=== PATIENT | female | born 2005 | race Caucasian/White ===

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

== ENCOUNTER 2023-02-22 19:16 | Emergency (ER) | payer OTHER, SELFPAY ==
--- NOTE | 2023-02-22 19:20 | ED.ABDPAIN ---
HPI - Abdominal Pain General Chief Complaint: Abdominal Pain Stated Complaint: Abdominal Pain Time Seen by Provider: 02/22/23 19:20 Source: patient Mode of arrival: ambulatory Limitations: no limitations History of Present Illness HPI narrative: Patient is 17-year-old female that presents with diarrhea for 1 week. Patient has not tried any Imodium or other [id number] medication to help with diarrhea. Patient has been taking 1 600 mg ibuprofen intermittently. Patient was talking to PCP on patient portal but unable to get into office. Patient states her diet consists of fast food. Does states she only drinks water and is not concerned for dehydration. Denies any fever, chills, nausea, vomiting. Denies anyone else having diarrhea in her household. Related Data Home Medications Medication Instructions Recorded Confirmed etonogestrel 68 mg subdermal 1 implant subdermal ONCE 11/08/22 02/22/23 implant (Nexplanon) Allergies Allergy/AdvReac Type Severity Reaction Status Date / Time No Known Allergies Allergy Verified 02/22/23 19:54 Review of Systems Review of Systems: All systems reviewed & are unremarkable except as noted in HPI and below Constitutional: Constitutional: Denies body ache(s), Denies chills, Denies fatigue, Denies fever(s), Denies headache(s), Denies malaise and Denies weakness Eyes: Eyes: Denies blurry vision, Denies irritation and Denies loss of vision ENT: Denies otalgia, Denies headache(s), Denies nasal discharge, Denies sinus pain and Denies sore throat Cardiovascular: Cardiovascular: Denies chest pain, Denies irregular heart rhythm and Denies dyspnea Respiratory: Respiratory: Denies dyspnea Gastrointestinal: Gastrointestinal: Reports abdominal pain, Denies melena, Denies hematochezia, Reports diarrhea, Denies nausea and Denies vomiting Musculoskeletal: Musculoskeletal: Denies back pain, Denies myalgias and Denies arthralgias Integumentary/Breasts: Skin/Breast: Denies pruritus and Denies rash Neurologic: Denies headache(s), Denies loss of vision and Denies weakness Psychiatric: Psychiatric: Reports no additional psychiatric complaints Endocrine: Endocrine: Denies fatigue PMFSH Past Medical History Medical History Anxiety and depression UTI (urinary tract infection) Family History Family History Other Hypertension Social History Social History Smoking status: Never smoker Alcohol intake: never Substance use: never Substance use type: does not use Living arrangements: with family Occupation/Education: student Gender identity (if verbalized by the patient): Female Spiritual care concerns: No Comments At time of signature, agree with nursing past medical, surgical, social and family history. There is no relevant family history pertinent to the presenting complaint. Exam Const: General: cooperative, healthy appearing, comfortable, no acute distress and well nourished Nutritional Appearance: well nourished Orientation/consciousness: patient oriented x3 Limitations: no limitations HENMT: Head: normal to inspection, normocephalic and atraumatic Ears: hearing grossly normal bilaterally and external ears normal Face/Nose/Sinus: Normal external nose present, normal facial exam and face symmetric Face and sinus: normal facial exam and face symmetric Mouth: Yes lip normal Eyes: General: appearance normal, both eyes and all related structures Alignment and Position: alignment normal and position normal Periorbital: periorbital findings normal Eyelids: eyelids normal Pupils: Equal, round and reactive pupils present EOM: EOMs intact bilaterally Neck: Neck: normal visual inspection, full ROM and supple Chest: Chest palpation & inspection: normal inspection of the chest Resp: Effort & Inspectio
[2023-02-22 19:35] VITALS: BP 131/102; PULSE 100; RESP 16; TEMP 37.1; O2SAT 100
== END 2023-02-22 20:10 | disposition home or self-care (01) ==
PROVIDERS: Emergency Provider Nurse Practitioner Family; PCP Physician Assistant
DX: K52.9 Noninfective gastroenteritis and colitis, unspecified (principal)
CPT/HCPCS: 99213; G0463

== ENCOUNTER 2023-05-12 11:39 | Emergency (ER) | payer OTHER, SELFPAY ==
[2023-05-12 11:51] VITALS: BP 120/101; PULSE 134; RESP 16; TEMP 38.3; O2SAT 99
--- NOTE | 2023-05-12 12:06 | ED.URI ---
HPI - URI/Sore Throat General Chief Complaint: Upper Respiratory Infection Stated Complaint: body aches,chills,fever Time Seen by Provider: 05/12/23 12:06 Source: patient and RN notes reviewed Mode of arrival: ambulatory Limitations: no limitations History of Present Illness HPI Narrative: 18-year-old female presented for complaint of fatigue, headache, body aches, sinus pressure/congestion, mild cough, nausea, fever/chills. onset 2 days. Taking ibuprofen for symptoms. Endorses mother was sick with similar symptoms recently. Denies sob, wheezing , chest pain or lethargy. MD elicited complaint: cough Related Data Home Medications Medication Instructions Recorded Confirmed etonogestrel 68 mg subdermal 1 implant subdermal ONCE 11/08/22 02/22/23 implant (Nexplanon) liraglutide 0.6 mg/0.1 mL (18 mg/3 mg subcut 05/12/23 mL) subcutaneous pen injector (Talicious 2-Logan) Allergies Allergy/AdvReac Type Severity Reaction Status Date / Time No Known Allergies Allergy Verified 05/12/23 11:50 Review of Systems Review of Systems: CONSTITUTIONAL: Endorses malaise, chills, sweats, fever EYES: Denies visual changes, redness, or discharge ENT: Reports rhinorrhea, congestion, sinus pain, otalgia, sore throat CARDIOVASCULAR: Denies chest pain, palpitations, edema RESPIRATORY: Reports cough, post nasal drainage. Denies dyspnea GASTROINTESTINAL: Denies abdominal pain, vomiting, diarrhea SKIN: Denies rash or itching MUSCULOSKELETAL: Endorses myalgia NEUROLOGIC: Endorses headache PMFSH Past Medical History Medical History Anxiety and depression UTI (urinary tract infection) Family History Family History Other Hypertension Social History Social History Smoking status: Never smoker Alcohol intake: never Substance use: never Substance use type: does not use Living arrangements: with family Occupation/Education: student Gender identity (if verbalized by the patient): Female Spiritual care concerns: No Exam Narrative: GENERAL: Ill-appearing, nontoxic HEAD: Normocephalic EYES: PERRLA, conjunctivae clear ENT: Mucous membranes moist. TMs pearly plasencia with dull light reflex bilaterally; no tragal tenderness. Oropharynx mildly erythematous without lesions or exudate, no drooling, no hoarseness, no trismus, uvula midline. NECK: Supple. No lymphadenopathy CHEST: Clear to auscultation, breath sounds equal. No wheezing, rhonchi, rales, or stridor. No respiratory distress, speaks in full sentences. HEART: Regular rate and rhythm. No murmur heard. SKIN: Warm, dry, no rash. NEURO: Alert and oriented x3. PSYCH: Normal mood and affect Course Course Emergency Course: Patient is aware of diagnosis, understands and agrees to treatment plan. Anticipatory guidance given. Patient agrees to follow-up as directed and is aware of reasons to seek care at the emergency department. Portions of this record may have been created with voice recognition software Level of Care: Express Care Visit Vital Signs Vital signs: Vital Signs Temperature 100.9 F H 05/12/23 11:51 Pulse Rate 134 H 05/12/23 11:51 Respiratory Rate 16 05/12/23 11:51 Blood Pressure 120/101 H 05/12/23 11:51 Pulse Oximetry 99 05/12/23 11:51 Oxygen Delivery Room Air 05/12/23 11:51 Temperature 100.9 F H 05/12/23 11:51 Pulse Rate 134 H 05/12/23 11:51 Respiratory Rate 16 05/12/23 11:51 Blood Pressure 120/101 H 05/12/23 11:51 Pulse Oximetry 99 05/12/23 11:51 Oxygen Delivery Room Air 05/12/23 11:51 reviewed MDM - URI/Sore Throat MDM Narrative Medical decision making narrative: Discussed physical exam findings and results of tests. Advised supportive measures and signs/symptoms to go to the ER. Pt is appropriate for outpt treatm
== END 2023-05-12 12:37 | disposition home or self-care (01) ==
PROVIDERS: Emergency Provider Nurse Practitioner Family; PCP Physician Assistant
DX: B34.9 Viral infection, unspecified (principal); Z20.822 Contact with and (suspected) exposure to COVID-19
CPT/HCPCS: 87081; 87426; 87804; 87880; 99213; C9803; G0463

== ENCOUNTER 2023-05-14 12:17 | Emergency (ER) | payer OTHER, SELFPAY ==
[2023-05-14 12:25] VITALS: BP 138/84; PULSE 133; RESP 16; TEMP 38.4; O2SAT 99
--- NOTE | 2023-05-14 13:31 | ED.GENADULT ---
HPI - General Adult General Chief complaint: Upper Respiratory Infection Stated complaint: Sinus Source: patient Mode of arrival: ambulatory Limitations: no limitations History of Present Illness HPI narrative: Patient presents for evaluation of sick symptoms for the last 4 days. Symptoms include fever, chills, sinus congestion, sinus drainage, sore throat, cough, nausea and vomiting. Her male partner has similar symptoms and several of his were contacts recently tested positive for COVID. Patient has never had COVID in the past. She was seen here 2 days ago and had negative testing at that time. She is not taking any medications to assist with her symptoms. Related Data Home Medications Medication Instructions Recorded Confirmed etonogestrel 68 mg subdermal 1 implant subdermal ONCE 11/08/22 02/22/23 implant (Nexplanon) liraglutide 0.6 mg/0.1 mL (18 mg/3 mg subcut 05/12/23 mL) subcutaneous pen injector (Victoza 2-Logan) Allergies Allergy/AdvReac Type Severity Reaction Status Date / Time No Known Allergies Allergy Verified 05/12/23 11:50 Review of Systems Review of Systems: CONSTITUTIONAL: reports fever and chills EYES: Denies visual changes, redness, or discharge. ENT: reports sinus congestion, nasal drainage, sore throat CARDIOVASCULAR: Denies chest pain, palpitations, or edema. RESPIRATORY: reports cough. Denies shortness of breath GASTROINTESTINAL: Reports nausea and vomiting. Denies abdominal pain or diarrhea. GENITOURINARY: Denies dysuria or hematuria. SKIN: Denies rash or itching. MUSCULOSKELETAL: Reports generalized body aches NEUROLOGIC: Denies headache, numbness, dizziness, or weakness. PSYCHIATRIC: Denies anxiety or depression. [facility] Past Medical History Medical History (Updated 05/14/23 @ 13:33 by EVELYN Ramirez, JERONIMO) Anxiety and depression UTI (urinary tract infection) Surgical History Surgical History No pertinent past surgical history Family History Family History Mother Family history non-contributory Other Hypertension Social History Social History Smoking status: Never smoker Alcohol intake: never Substance use: never Substance use type: does not use Living arrangements: with family Occupation/Education: student Gender identity (if verbalized by the patient): Female Spiritual care concerns: No Exam Narrative: GENERAL: Well-appearing, well-nourished, and in no acute distress. HEAD: Normocephalic, atraumatic. EYES: PERRLA and EOMI. ENT: Nares clear, no rhinorrhea or epistaxis. Mucous membranes moist. Oropharynx without tonsillar hypertrophy exudate or other lesions. Bilateral TMs pearly plasencia nonbulging NECK: Supple. No adenopathy or masses. No carotid bruits or JVD CHEST: Clear to auscultation. No respiratory distress. No wheezes rales or rhonchi HEART: Regular rate and rhythm. No murmur heard. Normal peripheral pulses. ABDOMEN: Soft, nontender, nondistended, normal active bowel sounds. EXTREMITIES: Normal range of motion. No edema. SKIN: Warm, dry, no rash. NEURO: No focal deficits. Alert and oriented x3. PSYCH: Normal mood and affect. Course Course Emergency Course: This is a 18-year-old female who presented for evaluation of sick symptoms. She was febrile and tachycardic but heart rate normalized to 76. Increase hydration. [id number] agents for symptom management. Follow up with primary provider. Go to the emergency department for worsening symptoms. Patient in agreement plan care. Level of Care: Express Care Visit Vital Signs Vital signs: Vital Signs Temperature 38.4 C H 05/14/23 12:25 Pulse Rate 133 H 05/14/23 12:25 Respiratory Rate 16 05/14/23 12:25 Blood Pressure 138/84 05/14/23 12:25 Pulse Oximetry
== END 2023-05-14 13:37 | disposition home or self-care (01) ==
PROVIDERS: Emergency Provider Nurse Practitioner; PCP Physician Assistant
DX: U07.1 COVID-19 (principal)
CPT/HCPCS: 87426; 99213; C9803; G0463

== ENCOUNTER 2023-12-07 10:31 | Emergency (ER) | payer SELFPAY ==
[2023-12-07 10:55] VITALS: BP 110/75; PULSE 105; RESP 16; TEMP 37.3; O2SAT 99
--- NOTE | 2023-12-07 11:20 | ED.FEMALEGU ---
HPI - Female Genitourinary General Chief complaint: Urogenital-Female Stated complaint: urinary issue Source: patient and RN notes reviewed Mode of arrival: ambulatory Limitations: no limitations History of Present Illness HPI Narrative: 18-year-old female presented for complaint of burning with urination. She states today she woke in the night with burning sensation to urethra. Then developed urgency, frequency, and decreased amount when voiding. Also reports cloudy dark urine. Pt took warm bath, heating pad, muscle relaxer with enough relief to go back to sleep. Rates pain 02/23. No meds for symptoms. Hx UTIs. Denies hematuria, nausea, vomiting, abdominal pain, flank pain, constipation, diarrhea, fevers or chills. Denies concern for STD or , on Nexplanon. Related Data Home Medications Medication Instructions Recorded Confirmed etonogestrel 68 mg subdermal 1 implant subdermal ONCE 11/08/22 12/07/23 implant (Nexplanon) Allergies Allergy/AdvReac Type Severity Reaction Status Date / Time No Known Allergies Allergy Verified 12/07/23 10:33 Review of Systems Review of Systems: CONSTITUTIONAL: Denies body aches, fever, chills, or sweats. CARDIOVASCULAR: Denies chest pain, palpitations, or edema. RESPIRATORY: Denies cough or dyspnea. GASTROINTESTINAL: Denies abdominal pain, nausea, vomiting, or diarrhea. GENITOURINARY: Reports dysuria, frequency, urgency, denies hematuria, flank pain SKIN: Denies rash, itching, or wounds. MUSCULOSKELETAL: Denies back pain or myalgia. [facility] Past Medical History Medical History Anxiety and depression UTI (urinary tract infection) Surgical History Surgical History No pertinent past surgical history Family History Family History Mother Family history non-contributory Other Hypertension Social History Social History Smoking status: Never smoker Alcohol intake: never Substance use: never Substance use type: does not use Living arrangements: with family Occupation/Education: student Gender identity (if verbalized by the patient): Female Spiritual care concerns: No Comments At time of signature, I have reviewed and agree with nursing past medical, surgical, social and family history unless otherwise noted. Please see nursing chart for further information. There is no relevant family history pertinent to the presenting complaint Exam Narrative: GENERAL: Well-appearing and in no acute distress. ENT: Mucous membranes pink and moist. NECK: Normal AROM. Supple. CHEST: No respiratory distress. Clear to auscultation. HEART: Regular rate and rhythm. ABDOMEN: Soft, nontender, nondistended, normal active bowel sounds. No CVA tenderness MUSCULOSKELETAL: No bony tenderness. SKIN: Warm, dry, no rash. NEURO: No focal deficits. Alert and oriented x3. Gait steady. PSYCH: Normal affect. Course Course Emergency Course: Patient is aware of diagnosis, understands and agrees to treatment plan. Anticipatory guidance given. Patient agrees to follow-up as directed and is aware of reasons to seek care at the emergency department. Portions of this record may have been created with voice recognition software Level of Care: Express Care Visit Vital Signs Vital signs: Vital Signs Temperature 99.2 F 12/07/23 10:55 Pulse Rate 105 H 12/07/23 10:55 Respiratory Rate 16 12/07/23 10:55 Blood Pressure 110/75 12/07/23 10:55 Pulse Oximetry 99 12/07/23 10:55 Oxygen Delivery Room Air 12/07/23 10:55 Temperature 99.2 F 12/07/23 10:55 Pulse Rate 105 H 12/07/23 10:55 Respiratory Rate 16 12/07/23 10:55 Blood Pressure 110/75 12/07/23 10:55 Pulse Oximetry 99 12/07/23 10:55 Oxygen Delivery Room Air
== END 2023-12-07 11:30 | disposition home or self-care (01) ==
PROVIDERS: Emergency Provider Nurse Practitioner Family; PCP Physician Assistant
DX: N39.0 Urinary tract infection, site not specified (principal); B96.20 Unspecified Escherichia coli [E. coli] as the cause of diseases classified elsewhere
CPT/HCPCS: 81003; 87077; 87086; 87088; 87186; 99213; G0463

== ENCOUNTER 2024-05-22 12:49 | Emergency (ER) | payer SELFPAY ==
--- NOTE | 2024-05-22 13:01 | ED.FEMALEGU ---
HPI - Female Genitourinary General Chief complaint: Urogenital-Female Stated complaint: urinary issue Time Seen by Provider: 05/22/24 13:25 Source: patient Mode of arrival: ambulatory Limitations: no limitations History of Present Illness HPI Narrative: Sherri is a 19-year-old female patient presenting to the clinic today with complaints of burning with urination it has been going off and on for the past week. Reports she saw her doctor on Saturday and they did a urinalysis and it was normal at that time. She does report the clinic today that she does have some brownish white discharge that she has noticed. Is having some excoriation as well as burning with urination and towards the end of her stream. Denies any fever or chills. Does report some low back pain. Related Data Home Medications Medication Instructions Recorded Confirmed etonogestrel 68 mg subdermal 1 implant subdermal ONCE 11/08/22 12/07/23 implant (Nexplanon) amitriptyline 25 mg tablet 25 mg PO HS 05/22/24 05/22/24 Allergies Allergy/AdvReac Type Severity Reaction Status Date / Time No Known Allergies Allergy Verified 05/22/24 13:32 Review of Systems Review of Systems: Pertinent positives per HPI. Patient denies any fever, chills, rash, headache, visual changes, dizziness, cough, runny nose, sore throat, shortness of breath, chest pain, palpitations, nausea, vomiting, diarrhea, constipation, abdominal pain PMFSH Past Medical History Medical History Anxiety and depression UTI (urinary tract infection) Surgical History Surgical History No pertinent past surgical history Family History Family History Mother Family history non-contributory Other Hypertension Social History Social History Smoking status: Never smoker Alcohol intake: never Substance use: never Substance use type: does not use Living arrangements: with family Occupation/Education: student Gender identity (if verbalized by the patient): Female Spiritual care concerns: No Comments At the time of my signature, I reviewed and agree with the nursing past medical, surgical, social, and family history. There is no relevant family history pertinent to the patient complaint. Exam Narrative: General: Well-developed, well nourished, in no apparent distress Head: Normocephalic, atraumatic. Cardio: Regular rate and rhythm, s1 and s2 normal, no murmur appreciated. Resp: Clear to auscultation bilaterally, no rhonchi, rales, wheezing or rubs. Abdomen: Soft, pliable, bowel sounds present in all quadrants, non-tender to palpation, no CVAT tenderness. : Pelvic exam performed with (Anahi CARRILLO) at bedside. Verbal consent obtained from patient. Normal external female genitalia without lesions or masses, Urinary meatus: patent without discharge, Vagina: No lesions, masses, brown whitish discharge in the pelvic vault Cervix: pink without mass, lesions, discharge, or tenderness. Adnexa: without palpable mass or tenderness. Course Course Emergency Course: Portions of this record may have been created with voice recognition software. Level of Care: Express Care Visit Vital Signs Vital signs: Vital signs reviewed MDM - Female Genitourinary MDM Narrative Medical decision making narrative: At the time of visit patient is resting comfortably on the exam table. Patient appears to be nontoxic. Labs: Urinalysis shows positive ketone otherwise negative for any infection or blood. Chlamydia, gonorrhea, trich, and BV swab for sent to the lab. Plan: I suspect patient has dysuria with vaginal discharge. Will hold off on any prescriptions at this time is send over chlamydia, gonorrhea, trich, BV testing. We will contact patient if
[2024-05-22 13:21] VITALS: BP 117/62; PULSE 80; RESP 16; TEMP 37.3; O2SAT 99
[2024-05-22 13:26] LABS: EDUAAPPEAR Clear; EDUABILI Negative; EDUABLOOD Negative; EDUACOLOR1 Yellow; EDUAGLUCOSE Negative; EDUAKETONE 1+; EDUALEUKO Negative; EDUANITRATE Negative; EDUAPH 5.5; EDUAPROTEIN Negative
[2024-05-22 19:45] LABS: Trichomonas Vag PCR NOT DETECTED (NOT DETECTE)
[2024-05-22 20:09] LABS: Chlamydia trachomatis NOT DETECTED (NOT DETECTE); Neisseria gonorrhoeae PCR NOT DETECTED (NOT DETECTE)
[2024-05-27 14:54] LABS: Bacterial Vaginosis NEGATIVE (NEGATIVE)
== END 2024-05-22 13:58 | disposition home or self-care (01) ==
PROVIDERS: Emergency Provider Nurse Practitioner Family
DX: R30.0 Dysuria (principal); N89.8 Other specified noninflammatory disorders of vagina; F32.A Depression, unspecified
CPT/HCPCS: 81003; 81513; 87491; 87591; 87661; 99214; G0463

== ENCOUNTER 2024-08-18 10:50 | Outpatient (CLI) | payer OTHER, SELFPAY ==
[2024-08-18 11:12] LABS: Basophils Absolute Auto 0.03 K/mm3 (0.00-0.10); Basophils Percent Auto 0.3 % (0.0-1.0); Eosinophils Absolute Auto 0.29 K/mm3 (0.02-0.50); Eosinophils Percent Auto 3.2 % (1.0-6.0); Hemoglobin 12.2 g/dL (12.0-15.0); Immature Granulocyte Absolute 0.03 K/mm3 (0.00-0.00); Immature Granulocyte Percent A 0.3 % (0.0-0.0); Lymphocytes Absolute Auto 2.85 K/mm3 (1.10-4.50); Lymphocytes Percent Auto 31.3 % (18.0-42.0); Mean Corpuscular Hemoglobin 26.3 pg (27.0-31.0); Mean Corpuscular Volume 79.9 fL (78.0-102.0); Mean Platelet Volume 10.1 fl (9.2-11.8); Monocytes Percent Auto 6.6 % (2.0-11.0); Neutrophils Percent Auto 58.3 % (50.0-70.0); Platelet Count Result 363 K/mm3 (150-420); Red Blood Count 4.63 M/mm3 (4.20-5.40); Red Cell Distribution Width 13.1 % (11.6-14.4); White Blood Count 9.1 K/mm3 (4.8-10.8)
[2024-08-18 11:19] LABS: Hemoglobin A1C 5.1 % (<5.7)
[2024-08-18 11:52] LABS: Alanine Aminotransferase 43 U/L (14-59); Albumin Level 3.7 g/dL (3.4-5.0); Alkaline Phosphatase 88 U/L (46-116); Anion Gap 8 mmol/L (4-12); Aspartate Amino Transferase 21 U/L (15-37); Bilirubin,Total 0.5 mg/dL (0.00-1.00); Blood Urea Nitrogen 9 mg/dL (7-18); Calcium 9.2 mg/dL (8.5-10.1); Carbon Dioxide 25 mmol/L (21-32); Chloride 104 mmol/L (98-108); Cholesterol 153 mg/dL (0-200); Estimated Glomerular Filt Rate > 60; Glucose 86 mg/dL (70-99); HDL Direct 45 mg/dL (40-60); Iron 33 ug/dL (50-170); LDL Cholesterol Calculated 91 mg/dL (<130); Osmolality Calculated 281 mOsm/kg (285-295); Percent Iron Saturation 9 % (12-57); Potassium 4.1 mmol/L (3.5-5.1); Sodium 137 mmol/L (136-145); Triglycerides 85 mg/dL (0-150)
[2024-08-18 13:18] LABS: Erythrocyte Sedimentation Rate 26 mm/hr (0-15)
[2024-08-19 08:04] LABS: Hepatitis C Virus Antibody NON-REACTIVE (NON-REACTIVE)
[2024-08-20 03:53] LABS: C-Peptide 3.26 ng/mL (0.80-3.85)
== END 2024-08-18 10:51 | disposition home or self-care (01) ==
PROVIDERS: PCP Internal Medicine; Visit Provider Internal Medicine
DX: Z00.00 Encounter for general adult medical examination without abnormal findings (principal); R51.9 Headache, unspecified; L81.8 Other specified disorders of pigmentation; D50.9 Iron deficiency anemia, unspecified; F41.8 Other specified anxiety disorders; Z83.3 Family history of diabetes mellitus
CPT/HCPCS: 36415; 80053; 80061; 83036; 83540; 83550; 84443; 84681; 85025; 85652; 86803

== ENCOUNTER 2024-09-18 16:10 | Outpatient (CLI) | payer OTHER, SELFPAY ==
[2024-09-18 16:57] LABS: SARS-CoV-2 RNA PCR Positive (Negative)
[2024-09-18 16:58] LABS: Influenza A QL RT-PCR Negative (Negative); Influenza B QL RT-PCR Negative (Negative); RSV RNA, RT-PCR Negative (Negative)
== END 2024-09-18 16:11 | disposition home or self-care (01) ==
LOC: CHSLAB 16:14
PROVIDERS: PCP Internal Medicine; Visit Provider Internal Medicine
DX: J06.9 Acute upper respiratory infection, unspecified (principal)
CPT/HCPCS: 87637

== ENCOUNTER 2024-10-21 20:30 | Emergency (ER) | payer OTHER, SELFPAY ==
[2024-10-21 20:35] VITALS: BP 134/83; PULSE 122; RESP 20; TEMP 37.3; O2SAT 97
--- OUTSIDE RECORDS SUMMARY | 2024-10-21 20:36 | XMS_ITS | Referral Summary ---
Author Organization [facility] Address [address] [place] [address] Care Team Providers Care Exhibit Builder Name Role Phone Roel Aragon MD Primary Care Provider Unavail able Source Comments [facility],non-owned Affiliates and Associated Physician Practices is amultiple site organization consisting of ambulatory clinics and hospital sitesin [place], [place], [place] and [place]. This disclosure is being madepursuant to the Care Everywhere program and may not contain all information available regarding this patient. Last updated 18.[facility] Allergies No known active allergies Medications * Be aware that medications may not be up to date on this document. Alwaysverify current medications with the patient. Medication Sig Dispensed Refills Start Date End Date Status ondansetron, disintegrating, (ZOFRAN ODT) 4 MG tablet Take 2 (two) tablets by mouth every 6 hours as needed for Nausea/Vomiting Allow tablet to dissolve on the tongue Active omeprazole (PRILOSEC) 20 MG capsule Take 1 (one) capsule by mouth daily before breakfast Active promethazine (PHENERGAN) 25 MG tablet Take 1 tablet by mouth every 6 hours as needed for Nausea/Vomiting 20 tablet 04/03/2018 Active acetaminophen (Tylenol) 500 MG capsule Take 600 mg by mouth as needed Active benzoyl peroxide (Benzac) 5 % wash APPLY A THIN LATER TO THE AFFECTED AREA EVERY DAY Active clindamycin (Cleocin) 1 % gel APPLY THIN LAYER TOPICALLY TO THE AFFECTED AREA EVERY DAY 11/30/2021 Active etonogestrel (Nexplanon) 68 MG implant Nexplanon 68 mg subdermal implant Inject 1 implant by subcutaneous route. Active ibuprofen (Motrin) 600 MG tablet Take 1 (one) tablet by mouth every 8 hours as needed Active meloxicam (Mobic) 7.5 MG tablet Take 1 (one) tablet by mouth once daily 30 tablet 5 11/28/2022 Active tiZANidine (Zanaflex) 2 MG tablet Take 1 (one) tablet by mouth every 8 hours as needed for Muscle Spasms 20 tablet 2 11/28/2022 Active Social History Tobacco Use Types Packs/Day Years Used Date Smoking Tobacco: Never Smokeless Tobacco: Never Tobacco Cessation:Counseling Given: Not Answered Alcohol Use Standard Drinks/Week Comments No 0 (1 standard drink = 0.6 oz pur e alcohol) Sex and Gender Information Value Date Recorded Sex Assigned at Not on file Gender Identity Not on file Sexual Orientation Not on file Last Filed Vital Signs Vital Sign Reading Time Taken Comments Blood Pressure 120/76 11/28/2022 1:56 PM CDT Pulse 80 04/03/2018 12:55 AM CDT Temperature 36.9 C (98.5 F) 04/03/2018 12:55 AM CDT Respiratory Rate 20 04/03/2018 12:55 AM CDT Oxygen Saturation - - Inhaled Oxygen Concentration - - Weight 99.3 kg (219 lb) 11/28/2022 1:56 PM CDT Height 172.7 cm (5' 8 ) 11/28/2022 1:56 PM CDT Body Mass Index 33.3 11/28/2022 1:56 PM CDT Plan of Treatment Not on file Care Teams Exhibit Builder Relationship Specialty Start Date End Date Roel Aragon MD PCP - General 03/22/22
--- OUTSIDE RECORDS SUMMARY | 2024-10-21 20:36 | XMS_ITS | Data Portability ---
Author Organization [facility] [place] Address [address] [place] [address] [place] [address] Care Team Providers Care Talent Recruiter Name Role Phone JAKOB MCGEE Primary Care Provider Assessment Encounter Date Assessment Date Assessment LastModified by Organization Details LastModified Time 08/20/2024 08/20/2024 Annual gynecological exam performed. Patient will come back in a year unless there are new symptoms. [email or web address] Not available 08/20/2024 17:01:25 Plan of Treatment Reminders Order Date Submit Date Provider Last Modified By Organization Details Last Modified Time Details Appointments None recorded. Lab test, urine 2022 023 [facility], [address], [address], [place], [address], 3 17:20:28 Referral None recorded. Procedures None recorded. Surgeries None recorded. Imaging US, transvagina l 2021 022 [email or web address] [place], [address], [place], [address], 2 22:21:34 Medication Orders Nexplanon 68 mg subdermal implant 2022 023 Not available 3 17:20:10 estradiol 2 mg tablet 2023 024 [facility] [address] [place], [address], 4 14:38:34 Patient TargetsNo targets recorded. Patient InstructionsNo instructions recorded. Reason for Referral None Reported. Results Created Date Observation Date Name Description Value Unit Range Abnormal Flag Note LastModifiedBy Organization Detail LastModifiedTime 08/20/20 24 08/20/2024 IMAGE GUIDE D PAP, REFLE X HPV IF ASCUS ONLY image guided Pap, reflex HPV ASCUS only SEE RESULT S BELOW CASE REPOR T: Cytol ogy Gynec ologi kelli Repor t Case: [id number] Autho lloyd devin Provi kenrick: Bryce Minor MD Colle cted: 08/20 1642 Order ing Locat ion: [place] Patho log[facility] Recei tamie: 08/21 1159 First Buzz n: Cindy nAguiano, CT Speci men: Buzz lagunas Pap - Image d, Cervi x STATE MENT OF ADEQU ACY: Satis facto ry for evalu ation Trans forma tion zone compo neterra prese nt ----- ----- ----- ----- ----- ----- ----- ----- ----- ----- ----- ----- ----- ----- ----- ----- ----- ---- FINAL DIAGN OSIS: Negat jacek for Intra epith elial Lesio n or Janie moore ([facility]) . Elect anya pittman by DORCAS Navarrete on 08/30 at 1352 [employer] ----- ----- ----- ----- ----- ----- ----- ----- ----- ----- ----- ----- ----- ----- ----- ----- ----- ---- COMME NT: This speci men was revie wed by a Cytot echno logis t and/o r Patho logis t (as indic ated in this repor t) after evalu ation using the Thinp rep Imagi ng Syste m. CLINI KELLI INFOR MATIO N: Menst rual Statu s: LMP (if appli cable ): Clini kelli Histo ry/Pr eviou s Pap: Type of Neopl alysha (if appli cable ): Signi fican t Clini kelli Findi ngs: Other Histo ry: Hormo christos (if appli cable ): PAP EDUCA FEDERICA L NOTE: The Pap Test is a scree bebo test with an inher ent false negat jacek rate. Liqui d-bas ed sampl ing may decre ase, but will not elimi linn, false negat jacek resul ts. A negat jacek resul t does not precl ude the prese nce and/o r devel opmen t of disea se, since the prese nce of abnor mal cells in the sampl e depen ds on the locat ion of the lesio n and sampl ing techn ique. Dorina nued regul ar scree bebo is the best metho d of cance r preve ntion . If repor diana cytol ogic findi ng do not corre late with physi kelli and/o r histo rical findi ngs, furth er inves tigat ion is recom paola d, as clini almita jacobs nted. Not Available [facility] (Lab) [address], [place], [address], 08/30/2024 14:55:59 08/20/20 24 08/20/2024 TRICH OMONA S VAGIN DIANA (RRNA ) trichomonas vaginalis ribosomal RNA (rrna) Negati ve negati ve Not Available [facility] (Lab) [address] [place], [address], 08/30/2024 14:55:59 08/20/20 24 08/20/2024 CT/GC ([facility]) , THINP REP VIAL chlamydia trachomatis, PCR Negati ve negati ve Not Available [facility] (Lab) [address] [place], [address], 08/30/2024 14:56:00 08/20/20 24 08/20/2024 CT/GC ([facility]) , THINP REP VIAL neisseria gonorrhoeae, PCR Negati ve negati ve Not Available [facility] (Lab) [address], [place], [address], 08/30/2024 14:56:00 07/31/20 22 07/31/2022 US, trans vagin al No observ ation record ed. [email or web address] [place] [address], [place], [address], 07/31/2022 17:20:15 07/31/20 22 07/31/2022 US, trans vagin al No observ ation record ed. [email or web address] [address], [place], [address], 07/31/2022 23:08:30 Result Notes None recorded. Procedures Surgical History Date Name Laterality Status Provider Name and Address Organization Details Recorded Time 08/20/20 24 Date of Last Pap Smear completed Sera Wilson [facility] 08/20/2024 17:04:18 10/26/19 23 Control Implant Insertion completed Junaid Minor MD [address], [place], [address], [facility] 10/26/2022 23:28:32 03/21/20 22 LAPAROSCOPIC OVARIAN CYSTECTOMY (SURG) completed Alison Diaz [facility] 03/26/2022 12:02:00 Imaging Results Imaging Date Name Status LastModified by Organization Details LastModified Time 07/31/2022 [email or web address] [address], [place], [address], 07/31/2022 17:20:15 07/31/2022 US, transvaginal completed [email or web address], [place], [address], 07/31/2022 23:08:30 Procedure Notes None recorded. Medical Equipment None Reported. Allergies No known drug allergies Medications Name Sig Start Date Stop Date Status Note LastModified by Organization Details LastModified Time azithromyci n 250 mg tablet 06/12 completed Not Available Not Available Not Available fluconazole 150 mg tablet TAKE 1 TABLET BY MOUTH EVERY DAY 06/12 completed Not Available Not Available Not Available hydrocodone 5 mg-acetamin ophen 325 mg tablet TAKE 1 TABLET BY MOUTH EVERY 6 HOURS 06/12 completed Not Available Not Available Not Available metronidazo le 0.75 % (37.5 mg/5 gram) vaginal gel INSERT 1 APPLICATO RFUL VAGINALLY EVERY NIGHT AT BEDTIME FOR 5 NIGHTS 03/05 completed Not Available Not Available Not Available prednisone 20 mg tablet TAKE 2 TABLETS BY MOUTH ONCE DAILY FOR 5 DAYS 06/12 completed Not Available Not Available Not Available sumatriptan 50 mg tablet TAKE 1 TABLET BY MOUTH AT ONSET OF MIGRAINE. MAY REPEAT DOSE 1 TIME AFTER 2 HOURS 03/05 completed Not Available Not Available Not Available ciprofloxac in 500 mg tablet TAKE 1 TABLET BY MOUTH EVERY 12 HOURS 03/05 completed Not Available Not Available Not Available butalbital- acetaminoph en-caffeine 50 mg-325 mg-40 mg tablet TAKE 1 TABLET BY MOUTH EVERY 4 HOURS NEEDED 06/12 completed Not Available Not Available Not Available amitriptyli ne 25 mg tablet TAKE 1 TABLET BY MOUTH ONCE DAILY AT BEDTIME FOR 90 DAYS active Not Available Not Available No t Available clindamycin 1 % topical gel APPLY THIN LAYER TOPICALLY TO THE AFFECTED AREA EVERY DAY 03/05 completed Not Available Not Available Not Available phenazopyri dine 100 mg tablet TAKE 1 TABLET BY MOUTH TWICE DAILY NEEDED FOR PAIN 03/05 completed Not Available Not Available Not Available benzonatate 100 mg capsule TAKE 1 CAPSULE BY MOUTH THREE TIMES DAILY FOR 5 DAYS NEEDED 06/12 completed Not Available Not Available Not Available cephalexin 500 mg capsule TAKE 1 CAPSULE BY MOUTH THREE TIMES DAILY FOR 7 DAYS. 03/05 completed Not Available Not Available Not Available pantoprazol e 40 mg tablet,sussy yed release TAKE 1 TABLET BY MOUTH EVERY MORNING FOR 10 DAYS 06/12 completed Not Available Not Available Not Available estradiol 2 mg tablet Take 1 tablet every day by oral route. 2023 active Not Available Not Available Not Avai lable ibuprofen 600 mg tablet TAKE 1 TABLET BY MOUTH EVERY 8 HOURS NEEDED 06/12 completed Not Available Not Available Not Available benzoyl peroxide 5 % topical cleanser APPLY A THIN LATER TO THE AFFECTED AREA EVERY DAY 06/12 completed Not Available Not Available Not Available polyethylen e glycol 3350 17 gram/dose oral powder TAKE 17 GIVE EVERY DAY BY ORAL ROUTE NEEDED 06/12 completed Not Available Not Available Not Available methylpredn isolone 4 mg tablets in a dose pack FOLLOW PACKAGE DIRECTION S 06/12 completed Not Available Not Available Not Available ondansetron 4 mg disintegrat ing tablet DISSOLVE 1 TABLET ON THE TONGUE EVERY 8 HOURS NEEDED FOR NAUSEA OR VOMITING 06/12 completed Not Available Not Available Not Available nitrofurant oin monohydrate /macrocryst als 100 mg capsule TAKE 1 CAPSULE BY MOUTH EVERY 12 HOURS WITH FOOD FOR 5 DAYS 06/12 completed Not Available Not Available Not Available FeroSul 325 mg (65 mg iron) tablet TAKE ONE TABLET BY MOUTH DAILY 06/12 completed Not Available Not Available Not Available Nexplanon 68 mg subdermal implant Inject 1 implant by subcutane ous route. 2022 active Not Available Not Available Not Avai lable Estarylla 0.25 mg-35 mcg tablet TAKE 1 TABLET BY MOUTH EVERY DAY 10/26 completed Not Available Not Available Not Available ferrous sulfate 220 mg (44 mg iron)/5 mL oral elixir TAKE 5 ML BY MOUTH DAILY FOR 30 DAYS 06/12 completed Not Available Not Available Not Available BinaxNOW COVID-19 Ag Self Test kit TEST DIRECTED TODAY 06/12 completed Not Available Not Available Not Available Vitals Date Recorded Body height Body mass index (BMI) Percentile per age and sex Body mass index (BMI) Body weight Systolic blood pressure Diastolic blood pressure Provider Name and Address Organization Details Last Updated DateTime 2 172.72 cm 96 % 32.7 kg/m2 48864.3 6 g 130 mm[Hg] 84 mm[Hg] Koki Rosales [facility] 2 12:08:18 Date Recorded Body height Body mass index (BMI) Body mass index (BMI) Percentile per age and sex Body weight Systolic blood pressure Diastolic blood pressure Provider Name and Address Organization Details Last Updated DateTime 3 172.72 cm 33.1 kg/m2 96 % 01009.1 4 g 115 mm[Hg] 79 mm[Hg] Koki Rosales [facility] 3 16:26:41 Date Recorded Body height Body mass index (BMI) Body weight Systolic blood pressure Diastolic blood pressure Provider Name and Address Organization Details Last Updated DateTime 06/12/2024 172.72 cm 39.7 kg/m2 256694.6 1 g 125 mm[Hg] 80 mm[Hg] Sera [facility] 4 14:11:13 Date Recorded Body height Body mass index (BMI) Body weight Systolic blood pressure Diastolic blood pressure Provider Name and Address Organization Details Last Updated DateTime 08/20/2024 172.72 cm 40 kg/m2 566539.7 9 g 115 mm[Hg] 77 mm[Hg] [facility] 4 17:03:18 Social History Question Answer Notes LastModified by Organizat ion Details LastModified Time Tobacco Smoking Status Never Smoker Koki Rosales [facility] 05/16/2022 17:27:19 What Is Your Level Of Alcohol Consumption? None Information not available 05/16/2022 Are You Blind Or Do You Have Difficulty Seeing? No Information not available 05/16/2022 What Is Your Level Of Caffeine Consumption? Occasional Information not available 05/16/2022 How Much Tobacco Do You Chew? None Information not available 05/16/2022 In The 14 Days Before Symptom Onset, Have You Had Close Contact With A Laboratory-confir med COVID-19 While That Case Was Ill? No Information not available 05/16/2022 In The 14 Days Before Symptom Onset, Have You Had Close Contact With A Person Who Is Under Investigation For COVID-19 While That Person Was Ill? No Information not available 05/16/2022 Have You Been To An Area Known To Be High Risk For COVID-19? No Information not available 05/16/2022 Are You Deaf Or Do You Have Serious Difficulty Hearing? No Information not available 05/16/2022 What Type Of Diet Are You Following? REGULAR Information not available 05/16/2022 What Is The Highest Grade Or Level Of School You Have Completed Or The Highest Degree You Have Received? 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 No Information not available 05/16/2022 Do You Use Protection During Sex? Usually Information not available 05/16/2022 Do You Use Your Seat Belt Or Car Seat Routinely? Yes Information not available 05/16/2022 Do You Have Smoke And Carbon Monoxide Detectors In Your Home? Yes Information not available 05/16/2022 How Much Tobacco Do You Smoke? No Information not available 05/16/2022 Do You Feel Stressed (tense, Restless, Nervous, Or Anxious, Or Unable To Sleep At Night)? [id number] Information not available 05/16/2022 Do You Use Any Illicit Or Recreational Drugs? No Information not available 05/16/2022 Do You Use Sunscreen Routinely? Yes Information not available 05/16/2022 Have You Used IV Drugs? No Information not available 05/16/2022 Sex: Female Functional Status Question Answer Note LastModified by Organizat ion Details LastModified Time Are you able to walk? YESWOREST Information not available 05/16/2022 What is your exercise level? Occasional Information not available 05/16/2022 Mental Status None recorded. Family History Relationship Description Onset Age of this Age Resolved Age Notes LastModified by Organization Details LastModified Time Mother Asthma Not available 05/16/2022 17:27:07 Mother Abnormal cervical Papanicolaou smear Pre-ce rvical cancer [email or web address] Not available 06/12/2024 14:02:41 Mother Cyst of ovary [email or web address] Not available 2023 14:02:41 Father Hyperlipidem ia [email or web address] Not available 2023 14:02:41 Father Hypertensive disorder Not available 2021 17:27:08 Maternal Grandfather Diabetes mellitus Not available 2021 17:27:08 Paternal Grandmother Heart disease Not available 2021 17:27:08 Paternal Grandfather Heart disease Not available 2022 13:04:11 Medical History No medical history recorded. Gynecological History Statement/Question Response Flow Light Date of LMP 08/20/2024 Was last menstrual period normal Y STIs/STDs N HPV Vaccine Y Duration of Flow (days) 7 Current Control Method Implant Are cycles usually normal Y Frequency of Cycle (Q days) 28 Sexually Active? Y Menses Monthly Y Age of first menstrual cycle 9 Date of Last Pap Smear 08/20/2024 Sexual Problems? N LMP Definite Obstetrics History GPAL:G 0 P 0 0 0 0 Past Encounters Encounter ID Performer Location Encounter Start Date Encounter Closed Date Diagnosis/Indication Diagnosis SNOMED-CT Code Diagnosis ICD10 Code Diagnosis Note [id number] Junaid Minor MD [place] [address] [address] 03/05/2022 14:00:19 03/05/2022 15:16:14 Pain in pelvis 38423719 R10.2 Cyst of ovary 46935124 N 83.209 this patient is a 17-year-ol d female presents for follow-up from the emergency department . She had pelvic pain and 3 cm ovarian cyst on the left side. She has had pain now for about a month. The pain is persistent and severe at times. Movement makes it severe. She can sit comfortabl y. She has a difficult time completing her activities of daily living. We discussed ovarian cysts and how they form. The etiology and natural history. We discussed treatment options. We discussed prevention ovarian cyst. The patient is taking combined oral contracept jacek pills. She asked about PCOS. Talked about PCOS for a time. We spent over 40 minutes face-to-fa ce. Talked about 3 complex topics. Ovarian cyst, pelvic pain, PCOS, we agreed to observe for pain. She has pain management medication . We did agree to obtain an ultrasound have returned. [id number] Jayshree Ferreira [place] [address] [address] 03/09/2022 15:00:10 03/09/2022 16:16:40 Cyst of left ovary 8340776546 [id number] N83.292 [id number] [place] [address] [address] 03/12/2022 13:59:46 03/13/2022 15:02:25 Cyst of ovary 06750032 N83.209 Pain in pelvis 94951817 R10.2 this patient is a 17-year-ol d female with pelvic pain and a ovarian cyst. We have agreed to perform laparoscop ic ovarian cystectomy of the left ovary. She understand s the risk, benefits, and alternativ es. She has completed the informed consent process and is ready to proceed. We made a decision to perform surgery during this visit. [id number] Junaid Minor MD [place] [address] [address] 03/26/2022 15:18:11 03/26/2022 17:47:13 Postoperative care 782879272 Z48.89 This patient is a 17-year-ol d female who presents for postop follow-up. She had a laparoscop ic ovarian cystectomy . She is recovering normally. She does have some incision site pain. She is unable to work for some time due to this pain. Pain was brought on by movement work. She will follow up with us as needed. We reviewed the pathology report. [id number] Christiana Pepe [place] [address] [address] 05/10/2022 13:42:27 05/10/2022 14:23:04 Pain in pelvis 98085817 R10.2 this patient is a 17-year-ol d female with pelvic pain and a ovarian cyst. We have agreed to perform laparoscop ic ovarian cystectomy of the left ovary. She understand s the risk, benefits, and alternativ es. She has completed the informed consent process and is ready to proceed. We made a decision to perform surgery during this visit. [id number] Junaid Minor MD [place] [address],[place] [address] 05/16/2022 16:55:43 05/16/2022 23:07:14 Pain in pelvis 91557797 R10.2 this patient is a 17-year-ol d female presents for follow-up on ultrasound . She has a small ovarian cyst. She does have some slight pain associated with this cyst. Is present with movement. We discussed the findings. We spent more than 20 minutes face-to-fa ce. More than 50% was counseling . Talked about ovarian cyst. Talked about prevention . Talked about options for prevention . We reviewed the literature on efficacy of hormonal contracept ion types for the prevention of ovarian cyst. We agreed to continue the current oral contracept jacek pills. She will follow-up in 3 months on current cyst. [id number] Jayshree [facility] [address],[place] [address] 07/31/2022 15:45:50 07/31/2022 17:56:30 Cyst of left ovary [id number] 3851452 N83.292 [id number] Junaid Minor MD [place] [address],[place] [address] 08/03/2022 11:14:16 08/03/2022 12:48:51 Pain in pelvis 20038160 R10.2 This patient is a 17-year-ol d female who presents for follow-up on pelvic pain. She had ovarian cystectomy several months ago. She has some relief for time and now her pain is back periods always on the left side. It is a sharp pain/ pressure. We talked about possible treatments . She has been getting serial ultrasound s and she does have a large follicle on the right. She has no GI symptoms. She has no urinary tract symptoms. She was counseled about pelvic floor therapy/ph ysical therapy. Also talked about referrals. We agreed to refer to pelvic Pain group. We spent 20 minutes face-to-fa ce. More than 50% was counseling . [id number] Junaid Minor MD [place] [address],[place] [address] 10/26/2022 16:16:26 10/29/2022 15:11:19 Insertion of subcutaneous contraceptive 181708726 Z30.9 [facility] ion care management 668600906 Z30.9 Nexplanon inserted without complicati ons. [id number] Junaid Minor MD [place] [address] [address] 06/12/2024 14:01:15 06/12/2024 15:05:21 Abnormal uterine bleeding 6145488340 9100 N93.9 This patient is a 19-year-ol d female with abnormal uterine bleeding and Nexplanon implant. We talked about the bleeding in detail. We talked about the physiology , etiology, natural history of this type of bleeding. She has some very heavy bleeding. She is passing large clots. I spent over 20 minutes on her care. We agreed to treat with oral estrogen for 1 month. She will do this periodical ly while she maintains the Nexplanon. She is planning on starting a family next year. [id number] Junaid Minor MD [place] [address] [address] 08/20/2024 16:45:59 08/20/2024 17:40:36 Gynecologic examination [id number] Z01.419 Annual gynecologi kelli exam performed. Patient will come back in a year unless there are new symptoms. Suggest Calcium with Vitamin D if not eating in diet. Patient advised to get annual flu shot. Recommend yearly physicals and preform monthly breast exams. Genetic testing is available for patients with family history of cancer. Engage in safe sexual practices, use condoms. Encouraged to have daily exercise. Avoid tobacco and illicit drugs, moderation of alcohol. If BMI greater than 25 dietary consult advised. If you have any questions please call or email. mammogram- na colon cancer screening -na DEXA scan- naPap smear- today laboratory evaluation - doene Health Concerns Section Related Observation LastModified by Organization Detai ls LastModified Time None Recorded Concern Status LastModified by Organization Details LastModified Time None Recorded Advance Directives Directive None Recorded Payers Encounter Date Sequence Insurance Name Policy Number Policy Wilder Covered Member ID Wilder Member ID Guarantor Name 07/31/2022 1 [employer] (PPO) Sherri Ruiz [id number] Sherri Ruiz 07/31/2022 2 [facility] (MEDICAID HMO) [id number] Sherri Vandeford [id number] Sherri Vandeford 08/03/2022 1 [facility] BENEFIT [facility]MINISTRATION (PPO) Sherri Vandeford [id number] Sherri Vandeford 08/03/2022 2 [facility] (MEDICAID HMO) [id number] Sherri Vandeford [id number] Sherri Vandeford 10/26/2022 2 [facility] (MEDICAID HMO) [id number] Sherri Vandeford [id number] Sherri Vandeford 10/26/2022 1 [facility] Clement Ruiz [id number] Sherri Vandeford 06/12/2024 1 *SELF PAY* Yudi jiang Vandeford 08/20/2024 1 R [id number] Sherri Elias Vandeford [id number] Sherri Vandeford Notes Date Note Type Note Provider Name and Address Organization Details Recorded Time 08/03/2022 text/html This patient is a 17-year-old female who presents for follow-up on pelvic pain. She had ovarian cystectomy several months ago. She has some relief for time and now her pain is back periods always on the left side. It is a sharp pain/ pressure. We talked about possible treatments. She has been getting serial ultrasounds and she does have a large follicle on the right. She has no GI symptoms. She has no urinary tract symptoms. She was counseled about pelvic floor therapy/physical therapy. Also talked about referrals. We agreed to refer to pelvic Pain group. We spent 20 minutes [id number]. More than 50% was counseling. Junaid Minor MD [address], [place], [address], [facility] 08/03/2022 12:44:40 10/26/2022 text/html 17-year-old femlaci toney presents for Nexplanon insertion. Junaid Minor MD [address], [place], [address], [facility] 10/26/2022 23:29:13 06/12/2024 text/html This patient is a 19-year-old female with abnormal uterine bleeding and Nexplanon implant. We talked about the bleeding in detail. We talked about the physiology, etiology, natural history of this type of bleeding. She has some very heavy bleeding. She is passing large clots. I spent over 20 minutes on her care. We agreed to treat with oral estrogen for 1 month. She will do this periodically while she maintains the Nexplanon. She is planning on starting a family next year. Junaid Minor MD [address], [place], [address], [facility] 06/12/2024 14:55:34 08/20/2024 text/html Annual GYNReport ed bypatient.History: no gynecologic complaints Urinary symptoms:No hematuria; No incontinence Vulva:No genital lesion Vagina:Normal vaginal discharge Breast:No breast pain; No breast lump Current Contraception:Sati sfied with current contraception; Implanon Sexual complaints:No sexual complaints; No pain during intercourse Menopausal Symptoms:No menopausal symptoms Psychological symptoms:No depression; No anxiety Preventive measures:Encourage self breast examination; Encourage regular exercise Junaid Minor MD [address], [place], [address], [facility] 08/20/2024 17:37:31 OBGyn Episode No OBEpisode recorded.
--- OUTSIDE RECORDS SUMMARY | 2024-10-21 20:36 | XMS_ITS | Encounter Summary ---
Author Organization [facility] Address [address] [place] [address] Phone Care Team Providers Care Rolling Chair Pusher Name Role Phone Darshana Sellers Primary Care Provider + Suman Aparicio MD Unavailable [phone] Reason for Visit * Consultation (Routine) - Authorized Specialty Diagnoses / Procedures Referred By Contac t Referred To Contact Oncology Diagnoses Iron deficiency anemia, unspecified iron deficiency anemia type Suman Aparicio MD [address] [place] [address] Phone: tel: fax: [facility] [address] [place] [address] [place] [address] Phone: tel: fax: Referral ID Status Reason Start Date Expiration Date Visits Requested Visits Authorized [id number] Authorized Specialty Services Required 10/14/2024 11/13/2025 99 99 Encounter Details Date Type Department Care Team (Late st Contact Info) Description 10/21/2024 11:30 AM JEWELRY MODEL MAKER Office Visit [facility] [address] [place] [address] [address] [place] [address] Suman Aparicio MD [address] [place] [address] Iron deficiency anemia, unspecified iron deficiency anemia type (Primary Dx) Social History Tobacco Use Types Packs/Day Years Used Date Smoking Tobacco: Never Smokeless Tobacco: Never AUDIT-C Answer Date Recorded Q1: How often do you have a drink containing alcohol? Never 10/21/2024 Q2: How many drinks containi ng alcohol do you have on a typical day when you are drinking? Patient does not drink Frequency of Binge Drinking Not on file 01/2025 Personal Safety Answer Date Recorded Have you ever been in or are you currently in a harmful physical or emotional relationship or is someone making you feel afraid or unsafe? Denies 02/27/2023 Comments Unknown Sex and Gender Information Value Date Recorded Sex Assigned at Not on file Legal Sex Female 7:31 PM JEWELRY MODEL MAKER Gender Identity Not on file Sexual Orientation Not on file documented as of this encounter Last Filed Vital Signs Vital Sign Reading Time Taken Comments Blood Pressure 104/71 10/21/2024 11:14 AM JEWELRY MODEL MAKER Pulse 66 10/21/2024 11:14 AM JEWELRY MODEL MAKER Temperature 37.1 C (98.8 F) 10/21/2024 11:14 AM JEWELRY MODEL MAKER Respiratory Rate 18 10/21/2024 11:1 4 AM JEWELRY MODEL MAKER Oxygen Saturation 98% 10/21/2024 11: 14 AM JEWELRY MODEL MAKER Inhaled Oxygen Concentration - - Weight 116.1 kg (256 lb) 10/21/2024 11: 14 AM JEWELRY MODEL MAKER Height 171.5 cm (5' 7.5 ) 10/21/2024 11 :14 AM JEWELRY MODEL MAKER pt refused to remove shoes Body Mass Index 39.5 10/21/2024 11:14 AM JEWELRY MODEL MAKER documented in this encounter Progress Notes * Suman Aparicio MD - 10/21/2024 11:30 AM CST Hematology/Oncology Return Visit Date: 10/21/2024 Primary Care Physician: Darshana Sellers PA Cierra Jada Ruiz 19 y.o. female Interval History: Ms. Ruiz is a 19 y.o. year old female who returns today for follow up with Hematology for irondeficiency anemia. Since the last visit, the patient has been more fatigued andhas ice caving HPI: This is a 19-year-old woman who returns today for follow-up of iron deficiency anemia. Patientis intolerant of oral iron replacement and subsequently the iron has to be replaced intravenously. She last received an iron infusion about a year and a half ago. She reports some problems with fatiga bility as well as some additional ice craving. She continues with heavy menstrual periods. Past Medical History: Diagnosis Date Anemia Past Surgical History: Procedure Laterality Date CYSTECTOMY Left 03/21/2022 Current Outpatient Medications: acetaminophen (TYLENOL ORAL), Take 600 mg by mouth Nexplanon, Nexplanon 68 mg subdermal implant Inject 1 implant by subcutaneous route. ibuprofen, 600 mg, oral, Q6H PRN ondansetron ODT, ondansetron 4 mg disintegrating tablet DISSOLVE 1 TABLET ON THE TONGUE EVERY 8 HOURS NEEDED FOR NAUSEA OR VOMITING (Patient taking differently: oral, Every 8 hours PRN) diazePAM, 5 mg, oral, BID (Patient not taking: Reported on 10/21/2024) omeprazole, 20 mg, oral, Before breakfast (Patient not taking: Reported on 10/21/2024) prochlorperazine, 10 mg, oral, BID PRN (Patient not taking: Reported on 10/21/2024) No Known Allergies Social History Tobacco Use Smoking status: Never Smokeless tobacco: Never Substance and Sexual Activity Drug use: Never Sexual activity: Defer Alcohol Use: Not At Risk (10/21/2024) AUDIT-C Frequency of Alcohol Consumption: Never Average Number of Drinks: Patient does not drink Frequency of Binge Drinking: Not on file Family History Problem Relation Age of Onset Diabetes Maternal Grandfather Heart failure Paternal Grandmother Heart attack Paternal Grandfather Review of Systems: Review of Systems Constitutional: Positive for fatigue. HENT: Negative. Eyes: Negative. Respiratory: Negative. Cardiovascular: Negative. Gastrointestinal: Negative. Genitourinary: Positive for abnormal menses. Musculoskeletal: Negative. Neurological: Negative. Psychiatric/Behavioral: Negative. Pain: negative. Objective Vitals: Vitals BP 104/71 (BP Location: Left arm) Pulse 66 Temp 37.1 ??C (98.8 ??F) (Oral) Resp 18 Ht 171.5 cm (5' 7.5 ) Wt 116.1 kg (256 lb) SpO2 98% BMI 39.50 kg/m?? Physical Exam: Physical Exam Constitutional: Appearance: Normal appearance. HENT: Nose: Nose normal. Mouth/Throat: Mouth: Mucous membranes are moist. Pharynx: Oropharynx is clear. Cardiovascular: Pulses: Normal pulses. Pulmonary: Effort: Pulmonary effort is normal. Abdominal: General: Abdomen is flat. Musculoskeletal: General: Normal range of motion. Cervical back: Normal range of motion. Skin: General: Skin is warm. Neurological: General: No focal deficit present. Mental Status: She is alert. Psychiatric: Mood and Affect: Mood normal. Behavior: Behavior normal. Thought Content: Thought content normal. Judgment: Judgment normal. Lab/Radiology/Diagnostic Review: Recent Results (from the past 12 weeks) CBC with auto differential Collection Time: 10/21/24 11:05 AM Result Value Ref Range WBC 11.8 (H) 3.8 - 9.9 K/cumm Hgb 13.0 11.9 - 15.5 g/dL Hct 41.2 35.6 - 45.5 % Plt 344 150 - 400 K/cumm MPV 10.3 9.1 - 12.3 fL RBC 5.36 (H) 3.90 - 5.20 M/cumm MCV 76.9 (L) 81.3 - 96.4 fL MCH 24.3 (L) 27.1 - 33.3 pg MCHC 31.6 (L) 32.3 - 35.7 g/dL RDW CV 13.7 11.1 - 14.9 % RDW SD 37.8 35.7 - 48.1 fL NRBC abs 0.00 0.00 - 0.01 K/cumm Differential, auto Collection Time: 10/21/24 11:05 AM Result Value Ref Range Neutrophil abs 9.5 (H) 1.5 - 6.5 K/cumm Imm gran abs 0.1 0.0 - 0.1 K/cumm Lymphocyte abs 1.1 0.8 - 3.3 K/cumm Monocyte abs 0.7 0.2 - 0.8 K/cumm Eosinophil abs 0.4 0.0 - 0.5 K/cumm Basophil abs 0.0 0.0 - 0.1 K/cumm Neutrophil pct 80.4 % Imm gran pct 0.4 % Lymphocyte pct 9.7 % Monocyte pct 5.9 % Eosinophil pct 3.4 % Basophil pct 0.2 % No results found. Patient Active Problem List Diagnosis Date Noted Iron deficiency anemia 06/04/2022 Assessment: Patient is intolerant of po iron and while she is not anemic (Hb 13.0), her MCV has decreased to 76 Plan: Await results of iron studies and would proceed with IV iron replacement if saturation is low My total encounter time on 10/21/2024 was 30 minutes which was spent in the activities documented in the note. This includes time spent prior to the visit and after the visit in direct care of the patient. This time does not include time spent in any separately reportable services. Dr. Suman Aparicio [facility] Hematology Department LRY MODEL MAKER documented in this encounter Miscellaneous Notes * Addendum Note - Ricco Irizarry RN - 10/21/2024 11:30 AM CSTAddended by: RICCO IRIZARRY on: 10/21/2024 01:35 PM Modules accepted: Orders LRY MODEL MAKER documented in this encounter Plan of Treatment Scheduled Orders Name Type Priority Associated Diagnoses Orde r Schedule CBC with auto differential Lab Routine Iron deficiency anemia, unspecified iron deficiency anemia type Expected: 04/21/2025, Expires: 10/21/2025 Ferritin Lab Routine Iron deficiency anemia, unspecified iron deficiency anemia type Expected: 04/21/2025, Expires: 10/21/2025 Iron profile w/ IBC Lab Routine Iron deficiency anemia, unspecified iron deficiency anemia type Expected: 04/21/2025, Expires: 10/21/2025 CBC with auto differential Lab Routine Iron deficiency anemia, unspecified iron deficiency anemia type Expected: 01/20/2025 (Approximate), Expires: 10/21/2025 Ferritin Lab Routine Iron deficiency anemia, unspecified iron deficiency anemia type Expected: 01/20/2025 (Approximate), Expires: 10/21/2025 Iron profile w/ IBC Lab Routine Iron deficiency anemia, unspecified iron deficiency anemia type Expected: 01/20/2025 (Approximate), Expires: 10/21/2025 documented as of this encounter Visit Diagnoses Diagnosis Iron deficiency anemia, unspecified iron deficiency anemia type- Primary documented in this encounter Orders Outpatient Referral Count Last Ordered Date Fir st Ordered Date AMB REFERRAL TO ONCOLOGY 1 10/21/2024 Appointment Requests Count Last Ordered Date Fi rst Ordered Date INFUSION APPT REQUEST 180 MIN 1 10/21/2024 [facility] CLINIC APPOINTMENT REQUEST 2 025 [facility] LAB APPOINTMENT 1 10/21/2024 documented in this encounter Care Teams Rolling Chair Pusher Relationship Specialty Start Date End Date Darshana Sellers PA PCP - General Physician Rubber Chemist 02/14/22 Suman Aparicio MD [id number] [facility], [facility] [address] [place] [address] Medical Oncologist/Line Lead Hematology and Oncology 10/12/24 documented as of this encounter
--- OUTSIDE RECORDS SUMMARY | 2024-10-21 20:36 | XMS_ITS | Data Portability ---
Author Organization [facility], [employer] Address [address] [place] [address] Assessment Encounter Date Assessment Date Assessment LastModified by Organization Details LastModified Time 06/03/2024 06/03/2024 New patient presented for admission to the practice. Studies ordered as below. Discussed plan with patient, who expressed understanding . Follow up as noted below. [email or web address] Not available 06/03/2024 18:24:54 08/17/2024 08/17/2024 Patient presented for follow up. Studies ordered as below. Discussed plan with patient/tabatha patel, who expressed understanding . Follow up as noted below. [email or web address] Not available 08/17/2024 15:15:20 Plan of Treatment Reminders Order Date Submit Date Provider Last Modified By Organization Details Last Modified Time Details Appointments ESTABLISH ED PATIENT 15 2024 01:45P Jada Wallis MD Not available Not available Not available Lab hepatitis C Ab, serum 2023 SHANNAN Not available 08/19/2024 11:15:20 hemoglobi n A1c, QN, blood 2023 024 SHANNAN Not available 08/18/2024 16:29:08 C-peptide , serum 2023 024 SHANNAN Not available 08/20/2024 10:19:31 ESR (erythroc yte sedimenta tion rate), blood 2023 024 [facility], [address], [place], [address], 08/17/2024 16:48:43 lipid panel w/ direct LDL, serum 2023 [facility], [address], [place], [address], 08/18/2024 16:09:05 CMP, serum or plasma 2023 024 [facility], [address], [place], [address], 08/18/2024 16:09:04 C-peptide , serum 2023 024 [facility], [address], [place], [address], 08/20/2024 08:40:40 hemoglobi n A1c, QN, blood 2023 [facility], [address], [place], [address], 08/24/2024 21:16:25 TSH, serum or plasma 2023 024 [facility], [address], [place], [address], 08/24/2024 21:16:25 hepatitis C Ab, serum 2023 024 [facility], [address], [place], [address], 08/19/2024 09:42:56 CBC w/ auto diff 2023 024 [facility], [address], [place], [address], 08/18/2024 16:29:07 iron panel, serum or plasma 2023 024 [facility], [address], [place], [address], 08/24/2024 21:16:25 Referral gynecolog ist referral 2023 SHANNAN Minor MD, [address], [place], [address], 06/04/2024 09:55:[address] referral 2023 [facility], [address] [address], [place], [address], 08/17/2024 17:02:42 gynecolog ist referral 2023 SHANNAN Minor MD, [address], [place], [address], 08/17/2024 17:31:43 Procedures None recorded. Surgeries None recorded. Imaging None recorded. Medication Orders butalbita l-acetami nophen-ca ffeine 50 mg-325 mg-40 mg tablet 2023 [facility] [address] [place], [address], 08/17/2024 16:48:23 sertralin e 50 mg tablet 2023 [facility] [address] [place], [address], 08/17/2024 16:48:20 Zepbound 2.5 mg/0.5 mL subcutane ous pen injector 2023 [facility] [address] [place], [address], 08/17/2024 16:48:21 Patient TargetsNo targets recorded. Patient Instructions Encounter Date Encounter Id Patient Instructions Last Modified By Organization Details Last Modified Time 06/03/2024 [id number] infection from tattoos: care instructions [email or web address] Not available 06/03/2024 18:39:06 anemia: care instructions mshenouda Not available 06/03/2024 18:39:06 body mass index: care instructions mshenouda Not available 06/03/2024 18:39:06 learning about healthy weight mshenouda Not available 06/03/2024 18:39:06 08/17/2024 [id number] headache: care instructions mshenouda Not available 08/17/2024 16:48:10 dizziness: care instructions mshenouda Not available 08/17/2024 16:48:11 infection from tattoos: care instructions mshenouda Not available 08/17/2024 16:48:10 body mass index: care instructions mshenouda Not available 08/17/2024 16:48:11 learning about healthy weight mshenouda Not available 08/17/2024 16:48:10 iron deficiency anemia: care instructions mshenouda Not available 08/17/2024 16:48:11 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 for 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 Referral for Sc reening for malignant neoplasm of cervix Referring Physician: Gregg Wallis, Internal Medicine, Encounter Date: 06/03/2024 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 Problems Name Problem SNOMED Code Status Onset Date Resolution Date Notes Provider Name and Address Organization Details Recorded Time Tattoo of skin 865341304122 Active 2023 Gregg Wallis MD [address], [place], [address], [facility] 18:31:55 Body mass index 30+ - obesity 903729790 Active 2023 Gregg Wallis MD [address], [place], [address], [facility] 16:32:49 Iron deficiency anemia 95927369 Active 2023 Gregg Wallis MD [address], [place], [address], [facility] 16:32:56 Dizziness 216064973 Active 2022 Epifanio Banerjee MD [address], [place], [address], [facility] 3 15:41:53 Pain of ear 333147684 Active 2022 Epifanio Banerjee MD [address], [place], [address], [facility] 3 16:05:26 Headache 97715225 Active 2022 Epifanio Banerjee MD [address], [place], [address], [facility] 3 16:06:04 Problem Notes None recorded. Medical Equipment None Reported. Allergies No known drug allergies Medications Name Sig Start Date Stop Date Status Note LastModified by Organization Details LastModified Time tizanidine 2 mg tablet TAKE 1 TABLET BY MOUTH EVERY 8 HOURS NEEDED FOR MUSCLE SPASMS 08/17 completed Not Available Not Available Not Available azithromyci n 250 mg tablet 02/27 completed Not Available Not Available Not Available fluconazole 150 mg tablet TAKE 1 TABLET BY MOUTH EVERY DAY 02/27 completed Not Available Not Available Not Available hydrocodone 5 mg-acetamin ophen 325 mg tablet TAKE 1 TABLET BY MOUTH EVERY 6 HOURS 02/27 completed Not Available Not Available Not Available ondansetron HCl 4 mg tablet Take 1 tablet 3 times a day by oral route as needed. 2024 active Not Available Not Available Not Avai lable prednisone 20 mg tablet TAKE 2 TABLETS BY MOUTH ONCE DAILY FOR 5 DAYS 08/17 completed Not Available Not Available Not Available Ferrex 150 mg iron capsule Take 1 capsule every other day by oral route. 2023 active Not Available Not Available Not Avai lable prochlorper azine maleate 10 mg tablet 08/17 completed Not Available Not Available Not Available butalbital- acetaminoph en-caffeine 50 mg-325 mg-40 mg tablet Take 1 tablet every 8 hours by oral route as needed. 2023 active Not Available Not Available Not Avai lable meloxicam 7.5 mg tablet TAKE 1 TABLET BY MOUTH EVERY DAY 02/27 completed Not Available Not Available Not Available amitriptyli ne 25 mg tablet TAKE 1 TABLET BY MOUTH ONCE DAILY AT BEDTIME FOR 90 DAYS active Not Available Not Available No t Available clindamycin 1 % topical gel 08/17 completed Not Available Not Available Not Available meclizine 25 mg tablet TAKE 1 TABLET BY MOUTH THREE TIMES DAILY NEEDED 08/17 completed Not Available Not Available Not Available benzonatate 100 mg capsule TAKE 1 CAPSULE BY MOUTH THREE TIMES DAILY NEEDED FOR COUGH 02/27 completed Not Available Not Available Not Available pantoprazol e 40 mg tablet,sussy yed release TAKE 1 TABLET BY MOUTH EVERY MORNING FOR 10 DAYS 02/27 completed Not Available Not Available Not Available hydroxyzine HCl 25 mg tablet TAKE 1 TABLET BY MOUTH EVERY DAY NEEDED 08/17 completed Not Available Not Available Not Available ibuprofen 600 mg tablet TAKE 1 TABLET BY MOUTH THREE TIMES DAILY NEEDED FOR PAIN 08/17 completed Not Available Not Available Not Available benzoyl peroxide 5 % topical cleanser APPLY A THIN LAYER TO THE AFFECTED AREA ONCE DAILY active Not Available Not Available No t Available polyethylen e glycol 3350 17 gram/dose oral powder TAKE 17 GIVE EVERY DAY BY ORAL ROUTE NEEDED 02/27 completed Not Available Not Available Not Available methylpredn isolone 4 mg tablets in a dose pack FOLLOW PACKAGE DIRECTION S 02/27 completed Not Available Not Available Not Available ondansetron 4 mg disintegrat ing tablet DISSOLVE 1 TABLET ON THE TONGUE EVERY 8 HOURS NEEDED FOR NAUSEA OR VOMITING 02/27 completed Not Available Not Available Not Available cefdinir 300 mg capsule TAKE 1 CAPSULE BY MOUTH EVERY 12 HOURS UNTIL ALL TAKEN 08/17 completed Not Available Not Available Not Available fluticasone propionate 50 mcg/actuati on nasal spray,suspe nsion [place] 1 spray every day by intranasa l route. 2024 active Not Available Not Available Not Avai lable sertraline 50 mg tablet Take 1 tablet every day by oral route at bedtime. 2023 active Not Available Not Available Not Avai lable diazepam 5 mg tablet 08/17 completed Not Available Not Available Not Available nitrofurant oin monohydrate /macrocryst als 100 mg capsule TAKE 1 CAPSULE BY MOUTH EVERY 12 HOURS WITH FOOD FOR 5 DAYS 08/17 completed Not Available Not Available Not Available Mucinex DM 30 mg-600 mg tablet,exte nded release 12 hr Take 1 tablet every 12 hours by oral route. 2024 active Not Available Not Available Not Avai lable FeroSul 325 mg (65 mg iron) tablet TAKE ONE TABLET BY MOUTH DAILY 08/17 completed Not Available Not Available Not Available Estarylla 0.25 mg-35 mcg tablet TAKE 1 TABLET BY MOUTH EVERY DAY 02/27 completed Not Available Not Available Not Available ferrous sulfate 220 mg (44 mg iron)/5 mL oral elixir TAKE 5 ML BY MOUTH DAILY FOR 30 DAYS 08/17 completed Not Available Not Available Not Available BinaxNOW COVID-19 Ag Self Test kit TEST DIRECTED TODAY 02/27 completed Not Available Not Available Not Available Zepbound 2.5 mg/0.5 mL subcutaneou s pen injector Inject 2.5 mg every week by subcutane ous route. 2023 active Not Available Not Available Not Avai ricki Vitals Date Recorded Body weight Body mass index (BMI) Body height Body temperature Respiratory rate Systolic blood pressure Diastolic blood pressure Provider Name and Address Organization Details Last Updated DateTime 4 520658. 83 g 38.1 kg/m2 175.26 cm 98.9 [degF] 16 /min 130 mm[Hg] 88 mm[Hg] Roxy Schwartz [facility] 4 18:06:50 Date Recorded Heart rate Provider Name an d Address Organization Details Last Updated DateTime 06/03/2024 85 /min Grgeg Wallis MD [address], [place], [address], [facility] 06/03/2024 18:32:20 Date Recorded Body weight Body temperature Body mass index (BMI) Body height Respiratory rate Systolic blood pressure Diastolic blood pressure Provider Name and Address Organization Details Last Updated DateTime 4 157811. 61 g 98.7 [degF] 38.5 kg/m2 175.26 cm 16 /min 117 mm[Hg] 78 mm[Hg] Roxy Schwartz [facility] 4 15:18:51 Date Recorded Heart rate Provider Name an d Address Organization Details Last Updated DateTime 08/17/2024 77 /min Gregg Wallis MD [address], [place], [address], [facility] 08/17/2024 16:27:58 Social History Question Answer Notes LastModified by Organizat ion Details LastModified Time Tobacco Smoking Status Never Smoker Gregg Wallis MD [address], [place], [address], [facility] 08/17/2024 16:45:24 Is Blood Transfusion Acceptable In An Emergency? Yes Information not available 08/17/2024 Are You Currently Employed? Yes Information not available 08/17/2024 What Is The Highest Grade Or Level Of School You Have Completed Or The Highest Degree You Have Received? [id number] Information not available 08/17/2024 What Is Your Relationship Status? Single Information not available 08/17/2024 Sex: Female Functional Status None recorded. Mental Status None recorded. Family History Relationship Description Onset Age of this Age Resolved Age Notes LastModified by Organization Details LastModified Time Paternal Grandfather Coronary arterioscler osis mshenouda Not available 2023 16:44:24 Paternal Grandmother Coronary arterioscler osis mshenouda Not available 2023 16:44:24 Father Diabetes mellitus mshenouda Not available 2023 16:44:35 Medical History No medical history recorded. Gynecological HistoryNo gynecological history recorded. Obstetrics History GPAL:G 0 P 0 0 0 0 Immunizations Vaccine Type Date Status Note Provider Nam e and Address Organization Details Recorded Time Hep B, unspecified formulation 07/06/2024 completed Daylin elizabeth [facility] 08/18/2024 21:39:17 Hep B, adolescent or pediatric 08/10/2024 completed Daylin elizabeth [facility] 08/18/2024 21:40:16 Past Encounters Encounter ID Performer Location Encounter Start Date Encounter Closed Date Diagnosis/Indication Diagnosis SNOMED-CT Code Diagnosis ICD10 Code Diagnosis Note [id number] Gregg Wallis MD [facility], [facility] [address] [place] [address] 06/03/2024 17:13:32 06/03/2024 18:44:11 Migraine 64718999 G43.909 Body mass index 30+ - obesity 017973098 Z68.38 Anemia 426996697 D64.9 last CBC 03/2024 Family his tory of diabetes mellitus 097617178 Z83.3 father Screening for malignant neoplasm of cervix 702717123 Z12.4 Active or passive immunization 954455994 Z23 Tattoo of skin 016300216 1 02 L81.8 [id number] Gregg Wallis MD [facility], [facility] [address] [place] [address] 08/17/2024 14:43:08 08/17/2024 16:54:30 Adult health examination 070756055 Z00.00 Headache 60691057 R51.9 better with amitriptyl ine Dizziness 319781066 R42 resolved Tattoo of skin 252144811 1 02 L81.8 Acne 47584586 L70.9 seen Iron defic iency anemia 38052056 D50.9 Body mass index 30+ - obesity 511260358 Z68.38 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 Screening for malignant neoplasm of cervix 129636526 Z12.4 Active or passive immunization 880745119 Z23 Family his tory of diabetes mellitus 291294104 Z83.3 father Health Concerns Section Related Observation LastModified by Organization Detai ls LastModified Time None Recorded Concern Status LastModified by Organization Details LastModified Time None Recorded Advance Directives Directive None Recorded Payers Encounter Date Sequence Insurance Name Policy Number Policy Wilder Covered Member ID Wilder Member ID Guarantor Name 06/03/2024 1 *SELF PAY* Ci erra Vandeford 08/17/2024 1 [employer] [id number] Sherri Vandeford [id number] Sherri Vandeford Notes Date Note Type Note Provider Name and Address Organization Details Recorded Time 06/03/2024 text/html Hypertension F/UReported bypatient.Medications: taking medications as directed; no side effects from medication Lifestyle:regular exercise; limiting/avoiding salt; compliant with low salt diet Associated Symptoms:no dizziness; no lightheadedness; no chest pain; no shortness of breath; no palpitations; no edema; no calf pain with exertion; no headacheMedicare Annual Wellness VisitReported bypatient.Diet and Nutrition:healthy diet Fracture Risk:no history of fractures; no recent explained fracture; no sudden unexplained fractures; no previous musculoskeletal injuries Physical Activity:exercises on a regular basis (walking); recent increase in physical activity; good physical condition; discussed exercise habits Depression Risk:never feels sad, empty, or tearful; no loss of interest in activities; no significant changes in weight; no sleep disturbances or insomnia; no agitation; no loss of energy; no feelings of worthlessness or guilt; no thoughts of suicide; no history of depression; no history of mood disorders Orientation:no disorientation to time; no disorientation to date; no disorientation to place Concentration and Memory:no decreased concentrating ability; no memory lapses or loss; does not forget words Speech/Motor difficulties:no speech difficulties; no difficulty expressing formulated concepts; no difficulty with fine manipulative tasks; no difficulty writing/copying; no slowed reaction time; does not knock things over when trying to pick them up Hearing:no loss of hearing Vision:no vision problems Falls Risk Assessment:no frequent falls while walking; no fall in the past year; no dizziness/vertigo Home Safety:use of seatbelts; no vision or hearing loss while driving Gregg Wallis MD [address] [place] [address], [place], [address], [facility] 06/03/2024 18:39:41 08/17/2024 text/html Hypertension F/UReported bypatient.Medications: taking medications as directed; no side effects from medication Lifestyle:regular exercise; limiting/avoiding salt; compliant with low salt diet Associated Symptoms:no dizziness; no lightheadedness; no chest pain; no shortness of breath; no palpitations; no edema; no calf pain with exertion; no headacheMedicare Annual Wellness VisitReported bypatient.Diet and Nutrition:healthy diet Fracture Risk:no history of fractures; no recent explained fracture; no sudden unexplained fractures; no previous musculoskeletal injuries Physical Activity:exercises on a regular basis (walking); recent increase in physical activity; good physical condition; discussed exercise habits Depression Risk:never feels sad, empty, or tearful; no loss of interest in activities; no significant changes in weight; no sleep disturbances or insomnia; no agitation; no loss of energy; no feelings of worthlessness or guilt; no thoughts of suicide; no history of depression; no history of mood disorders Orientation:no disorientation to time; no disorientation to date; no disorientation to place Concentration and Memory:no decreased concentrating ability; no memory lapses or loss; does not forget words Speech/Motor difficulties:no speech difficulties; no difficulty expressing formulated concepts; no difficulty with fine manipulative tasks; no difficulty writing/copying; no slowed reaction time; does not knock things over when trying to pick them up Hearing:no loss of hearing Vision:no vision problems Falls Risk Assessment:no frequent falls while walking; no fall in the past year; no fall since last visit; no dizziness/vertigo Home Safety:use of seatbelts; no vision or hearing loss while driving Gregg Wallis MD [address] [place] [address] [address], [place], [address], [facility] 08/17/2024 16:48:32 OBGyn Episode No OBEpisode recorded.
--- OUTSIDE RECORDS SUMMARY | 2024-10-21 20:36 | XMS_ITS | Referral Summary ---
[facility] Address [address] [place] [address] Care Team Providers Care Film Reproducer Name Role Phone Darshana Sellers Primary Care Provider + Suman Aparicio MD Unavailable [phone] Encounters Date Type Department Care Team Description 10/21/2024 11:00 AM SCIENTIFIC SYSTEMS ANALYST Lab [facility] at [address] [id number] Iron deficiency anemia, unspecified iron deficiency anemia type 10/21/2024 11:30 AM SCIENTIFIC SYSTEMS ANALYST Office Visit [facility] Oncology [address] [place] [address] [address] [place] [phone] Suman Aparicio MD Iron deficiency anemia, unspecified iron deficiency anemia type (Primary Dx) 08/26/2024 Telephone [facility] Oncology [address] [place] [address] [address] [place] [address] Faye Mix 08/26/2024 Orders Only [facility]cology [address] [place] [address] [address] [place] [address] Jayshree Duke, LORENA Iron deficiency anemia, unspecified iron deficiency anemia type (Primary Dx) 08/25/2024 Telephone [facility] Oncology [address] [place] [address] [address] [place] [address] Jayshree Duke, RN from Last 3 Months Allergies No known active allergies Medications ibuprofen (ADVIL,MOTRIN) 600 mg tablet Take 1 tablet (600 mg total) by mouth every 6 (six) hours as needed for pain 20 tablet 02/15/20 22 Active omeprazole (PriLOSEC) 20 mg capsule Take 1 capsule (20 mg total) by mouth daily before breakfast Active ondansetron ODT (ZOFRAN-ODT) 4 mg disintegrating tablet ondansetron 4 mg disintegrating tablet DISSOLVE 1 TABLET ON THE TONGUE EVERY 8 HOURS NEEDED FOR NAUSEA OR VOMITING Active acetaminophen (TYLENOL ORAL) Take 600 mg by mouth Active etonogestreL (Nexplanon) 68 mg implant Nexplanon 68 mg subdermal implant Inject 1 implant by subcutaneous route. Active diazePAM (VALIUM) 5 mg tablet Take 1 tablet (5 mg total) by mouth 2 (two) times a day 10 tablet 02/29/20 23 Active Additional Information Patient not taking.Reported on 10/21/2024 prochlorperazine (COMPAZINE) 10 mg tablet Take 1 tablet (10 mg total) by mouth 2 (two) times a day as needed for nausea or vomiting 10 tablet 02/29/20 23 Active Additional Information Patient not taking.Reported on 10/21/2024 Active Problems Problem Noted Date Diagnosed Date Iron deficiency anemia 06/04/2022 Immunizations Name Administration Dates Next Due DTaP 12/26/2007, 5,2003,07/07,2003 HPV9 04/19/2017,04/16/2014 Hep A, Ped Unspecified 12/20/2006,06/14/2006 Hep B, Adolescent or Pediatric 2003,2002,2003 HiB 06/09/2004, 4,2003,05/05 IPV 12/26/2007, 5,2003,05/05 Influenza, Quadrivalent, Spl it, Pediatric, Preservative Free, Intramuscular 06/06/2012,06/22/2011 Influenza, Split 07/01/2009,08/05/2008 Influenza, Unspecified 07/17/2007 MMR 12/26/2007,06/09/2004 Meningococcal ACWY, Unspecified 04/16/2014 Pneumococcal Conjugate 7-Valent 06/09/20 04,2003,2003,05/05 Tdap 04/16/2014 Varicella 12/26/2007,06/09/2004 Social History Tobacco Use Types Packs/Day Years Used Date Smoking Tobacco: Never Smokeless Tobacco: Never Tobacco Cessation:Counseling Given: Not Answered AUDIT-C Answer Date Recorded Q1: How often [...] on file Legal Sex Female 7:31 PM SCIENTIFIC SYSTEMS ANALYST Gender Identity Not on file Sexual Orientation Not on file Last Filed Vital Signs Vital Sign Reading Time Taken Comments Blood Pressure 104/71 10/21/2024 11:14 AM SCIENTIFIC SYSTEMS ANALYST Pulse 66 10/21/2024 11:14 AM SCIENTIFIC SYSTEMS ANALYST Temperature 37.1 C (98.8 F) 10/21/2024 11:14 AM SCIENTIFIC SYSTEMS ANALYST Respiratory Rate 18 10/21/2024 11:1 4 AM SCIENTIFIC SYSTEMS ANALYST Oxygen Saturation 98% 10/21/2024 11: 14 AM SCIENTIFIC SYSTEMS ANALYST Inhaled Oxygen Concentration - - Weight 116.1 kg (256 lb) 10/21/2024 11: 14 AM SCIENTIFIC SYSTEMS ANALYST Height 171.5 cm (5' 7.5 ) 10/21/2024 11 :14 AM SCIENTIFIC SYSTEMS ANALYST pt refused to remove shoes Body Mass Index 39.5 10/21/2024 11:14 AM SCIENTIFIC SYSTEMS ANALYST Plan of Treatment Not on file Procedures Procedure Name Priority Date/Time Associated Diagnosis Comments DIFFERENTIAL AUTO Routine 10/21/2024 11: 05 AM SCIENTIFIC SYSTEMS ANALYST Iron deficiency anemia, unspecified iron deficiency anemia type CBC WITH AUTO DIFFERENTIAL Routine 10/21/2024 11:05 AM SCIENTIFIC SYSTEMS ANALYST Iron deficiency anemia, unspecified iron deficiency anemia type FERRITIN Routine 10/21/2024 11:05 AM SCIENTIFIC SYSTEMS ANALYST Iron deficiency anemia, unspecified iron deficiency anemia type IRON PROFILE W/ IBC Routine 10/21/2024 1 1:05 AM SCIENTIFIC SYSTEMS ANALYST Iron deficiency anemia, unspecified iron deficiency anemia type from Last 3 Months Results * (ABNORMAL) Differential, auto (10/21/2024 11:05 AM SCIENTIFIC SYSTEMS ANALYST) Neutrophil abs 9.5(H) 1.5 - 6.5 K/cumm Comment:Testing performed by : [address] [address] Imm gran abs 0.1 0.0 - 0.1 K/cumm STEVEN Comment:Testing performed by : [address] [address] Lymphocyte abs 1.1 0.8 - 3.3 K/cumm STEVEN Comment:Testing performed by : [address] [address] Monocyte abs 0.7 0.2 - 0.8 K/cumm STEVEN Comment:Testing performed by : [address] [address] Eosinophil abs 0.4 0.0 - 0.5 K/cumm STEVEN Comment:Testing performed by : [address] [address] Basophil abs 0.0 0.0 - 0.1 K/cumm STEVEN Comment:Testing performed by : [address] [address] Neutrophil pct 80.4 % [facility] Comment: Interpretive Data Percent cell count reference ranges are not reported, since discordance with absolute values may lead to misinterpretation of CBC data. Current Interpretive Data was last revised on 2017. Testing performed by: [address] [address] Imm gran pct 0.4 % [facility] Comment: Interpretive Data Percent cell count reference ranges are not reported, since discordance with absolute values may lead to misinterpretation of CBC data. Current Interpretive Data was last revised on 2017. Testing performed by: [address] [address] Lymphocyte pct 9.7 % [facility] Comment: Interpretive Data Percent cell count reference ranges are not reported, since discordance with absolute values may lead to misinterpretation of CBC data. Current Interpretive Data was last revised on 2017. Testing performed by: [address] [address] Monocyte pct 5.9 % STEVEN Comment: Interpretive Data Percent cell count reference ranges are not reported, since discordance with absolute values may lead to misinterpretation of CBC data. Current Interpretive Data was last revised on 2017. Testing performed by: [address] [address] Eosinophil pct 3.4 % [facility] Comment: Interpretive Data Percent cell count reference ranges are not reported, since discordance with absolute values may lead to misinterpretation of CBC data. Current Interpretive Data was last revised on 2017. Testing performed by: [address] [address] Basophil pct 0.2 % [facility] Comment: Interpretive Data Percent cell count reference ranges are not reported, since discordance with absolute values may lead to misinterpretation of CBC data. Current Interpretive Data was last revised on 2017. Testing performed by: [address] [address] Blood 10/21/2024 11:0 5 AM SCIENTIFIC SYSTEMS ANALYST 10/21/2024 11:07 AM SCIENTIFIC SYSTEMS ANALYST Suman Aparicio MD LAB BLOOD ORDERABLES Fi nal Result STEVEN [address] [facility] Department of Laboratories [place], [place] [id number] * (ABNORMAL) Iron profile w/ IBC (10/21/2024 11:05 AM SCIENTIFIC SYSTEMS ANALYST) [facility] Signature Iron 24(L) 35 - 145 mcg/dL Comment:Testing performed by : [address] [address] TIBC 368 250 - 400 mcg/dL STEVEN Comment:Testing performed by : [address] [address] Transferrin saturation 7(L) 20 - 50 % STEVEN Comment:Testing performed by : [address] [address] Blood 10/21/2024 11:0 5 AM SCIENTIFIC SYSTEMS ANALYST 10/21/2024 11:47 AM SCIENTIFIC SYSTEMS ANALYST Suman Aparicio MD LAB BLOOD ORDERABLES Fi nal Result [facility] [address] [facility] Department [place] [address] * (ABNORMAL) CBC with auto differential (10/21/2024 11:05 AM SCIENTIFIC SYSTEMS ANALYST) WBC 11.8(H) 3.8 - 9.9 K/cumm Comment:Testing performed by : [address] [address] Hgb 13.0 11.9 - 15.5 g/dL STEVEN Comment:Testing performed by : [address] [address] Hct 41.2 35.6 - 45.5 % STEVEN Comment:Testing performed by : [address] [address] Plt 344 150 - 400 K/cumm STEVEN Comment:Testing performed by : [address] [address] MPV 10.3 9.1 - 12.3 fL STEVEN Comment:Testing performed by : [address] [address] RBC 5.36(H) 3.90 - 5.20 M/cumm STEVEN Comment:Testing performed by : [address] [address] MCV 76.9(L) 81.3 - 96.4 fL STEVEN BERNSTEIN Comment:Testing performed by : [address] [address] MCH 24.3(L) 27.1 - 33.3 pg STEVEN BERNSTEIN Comment:Testing performed by : [address] [address] MCHC 31.6(L) 32.3 - 35.7 g/dL STEVEN Comment:Testing performed by : [address] [address] RDW CV 13.7 11.1 - 14.9 % STEVEN Comment:Testing performed by : [address], [address] RDW SD 37.8 35.7 - 48.1 fL STEVEN Comment:Testing performed by : [address] [address] NRBC abs 0.00 0.00 - 0.01 K/cumm STEVEN Comment:Testing performed by : [address], [address] Blood 10/21/2024 11:0 5 AM SCIENTIFIC SYSTEMS ANALYST 10/21/2024 11:07 AM SCIENTIFIC SYSTEMS ANALYST us Suman Aparicio MD LAB BLOOD ORDERABLES Fi nal Result Performing Organization Address [facility] Co de Phone Number [facility] [address] [facility] [place] [address] * (ABNORMAL) Ferritin (10/21/2024 11:05 AM SCIENTIFIC SYSTEMS ANALYST) Ferritin 14(L) 15 - 150 ng/mL Comment:Testing performed by : [address], [address] Blood 10/21/2024 11:0 5 AM SCIENTIFIC SYSTEMS ANALYST 10/21/2024 11:47 AM SCIENTIFIC SYSTEMS ANALYST Suman Aparicio MD LAB BLOOD ORDERABLES Fi nal Result Performing Organization Address [facility] Co de Phone Number [facility] [address] [facility] [place] [address] from Last 3 Months Insurance [facility] [place] [address] [facility] IDPA Care Teams Film Reproducer Relationship Specialty Start Date End Date Darshana Sellers PA PCP - General Physician Cover Cutter 02/14/22 Suman Aparicio MD [address] [facility] MEDICAL ONCOLOGY, [address] [address] Medical Oncologist/Train Controller Hematology and Oncology 10/12/24
--- OUTSIDE RECORDS SUMMARY | 2024-10-21 20:36 | XMS_ITS | Encounter Summary ---
Author Organization [facility] Healthcare Address [address] [place] [address] Care Team Providers Care Information Technology Administrator Name Role Phone Darshana Sellers Primary Care Provider + Suman Aparicio MD Unavailable [phone] Encounter Details Date Type Department Care Team (Late st Contact Info) Description 10/21/2024 11:00 AM BALL HOLDER Lab [facility] at [address] [address] Iron deficiency anemia, unspecified iron deficiency anemia type Social History Tobacco Use Types Packs/Day Years [...] on file Legal Sex Female 7:31 PM BALL HOLDER Gender Identity Not on file Sexual Orientation Not on file documented as of this encounter Plan of Treatment Not on file documented as of this encounter Procedures Procedure Name Priority Date/Time Associated Diagnosis Comments DIFFERENTIAL AUTO Routine 10/21/2024 11: 05 AM BALL HOLDER Iron deficiency anemia, unspecified iron deficiency anemia type IRON PROFILE W/ IBC Routine 10/21/2024 1 1:05 AM BALL HOLDER Iron deficiency anemia, unspecified iron deficiency anemia type CBC WITH AUTO DIFFERENTIAL Routine 10/21/2024 11:05 AM BALL HOLDER Iron deficiency anemia, unspecified iron deficiency anemia type FERRITIN Routine 10/21/2024 11:05 AM BALL HOLDER Iron deficiency anemia, unspecified iron deficiency anemia type documented in this encounter Results * (ABNORMAL) Differential, auto (10/21/2024 11:05 AM BALL HOLDER) Neutrophil abs 9.5(H) 1.5 - 6.5 K/cumm Comment:Testing performed by : [address] [address] Imm gran abs 0.1 0.0 - 0.1 K/cumm STEVEN Comment:Testing performed by : [address] [address] Lymphocyte abs 1.1 0.8 - 3.3 K/cumm STEVEN Comment:Testing performed by : [address] [address] Monocyte abs 0.7 0.2 - 0.8 K/cumm STEVEN Comment:Testing performed by : [address] [address] Eosinophil abs 0.4 0.0 - 0.5 K/cumm STEVEN Comment:Testing performed by : [address] [address] Basophil abs 0.0 0.0 - 0.1 K/cumm STEVEN Comment:Testing performed by : [address] [address] Neutrophil pct 80.4 % STEVEN Comment: Interpretive Data Percent cell count reference ranges are not reported, since discordance with absolute values may lead to misinterpretation of CBC data. Current Interpretive Data was last revised on 2017. Testing performed by: [address] [address] Imm gran pct 0.4 % [facility] Comment: Interpretive Data Percent cell count reference ranges are not reported, since discordance with absolute values may lead to misinterpretation of CBC data. Current Interpretive Data was last revised on 2017. Testing performed by: [address] [address] Lymphocyte pct 9.7 % [facility] Comment: Interpretive Data Percent cell count reference ranges are not reported, since discordance with absolute values may lead to misinterpretation of CBC data. Current Interpretive Data was last revised on 2017. Testing performed by: [address] [address] Monocyte pct 5.9 % [facility] Comment: Interpretive Data Percent cell count reference ranges are not reported, since discordance with absolute values may lead to misinterpretation of CBC data. Current Interpretive Data was last revised on 2017. Testing performed by: [address] [address] Eosinophil pct 3.4 % [facility] Comment: Interpretive Data Percent cell count reference ranges are not reported, since discordance with absolute values may lead to misinterpretation of CBC data. Current Interpretive Data was last revised on 2017. Testing performed by: [address] [address] Basophil pct 0.2 % [facility] Comment: Interpretive Data Percent cell count reference ranges are not reported, since discordance with absolute values may lead to misinterpretation of CBC data. Current Interpretive Data was last revised on 2017. Testing performed by: [address] [address] Blood 10/21/2024 11:0 5 AM BALL HOLDER 10/21/2024 11:07 AM BALL HOLDER us Suman Aparicio MD LAB BLOOD ORDERABLES Fi nal Result STEVEN BERNSTEIN [address] [facility] Department [place] [address] * (ABNORMAL) CBC with auto differential (10/21/2024 11:05 AM BALL HOLDER) WBC 11.8(H) 3.8 - 9.9 K/cumm Comment:Testing performed by : [address] [address] Hgb 13.0 11.9 - 15.5 g/dL STEVEN Comment:Testing performed by : [address] [address] Hct 41.2 35.6 - 45.5 % STEVEN Comment:Testing performed by : [address] [address] Plt 344 150 - 400 K/cumm STEVEN Comment:Testing performed by : [address] [address] MPV 10.3 9.1 - 12.3 fL STEVEN Comment:Testing performed by : [address] [address] RBC 5.36(H) 3.90 - 5.20 M/cumm STEVEN Comment:Testing performed by : [address] [address] MCV 76.9(L) 81.3 - 96.4 fL STEVEN Comment:Testing performed by : [address] [address] MCH 24.3(L) 27.1 - 33.3 pg STEVEN Comment:Testing performed by : [address] [address] MCHC 31.6(L) 32.3 - 35.7 g/dL STEVEN Comment:Testing performed by : [address] [address] RDW CV 13.7 11.1 - 14.9 % STEVEN Comment:Testing performed by : [address] [address] RDW SD 37.8 35.7 - 48.1 fL STEVEN Comment:Testing performed by : [address] [address] NRBC abs 0.00 0.00 - 0.01 K/cumm STEVEN Comment:Testing performed by : [address] [place]., [address] Blood 10/21/2024 11:0 5 AM BALL HOLDER 10/21/2024 11:07 AM BALL HOLDER Suman Aparicio MD LAB BLOOD ORDERABLES Fi nal Result Performing Organization Address [facility] Co de Phone Number [address] [employer] [address] * (ABNORMAL) Ferritin (10/21/2024 11:05 AM BALL HOLDER) Ferritin 14(L) 15 - 150 ng/mL Comment:Testing performed by : [address] [address] Blood 10/21/2024 11:0 5 AM BALL HOLDER 10/21/2024 11:47 AM BALL HOLDER Suman Aparicio MD LAB BLOOD ORDERABLES Fi nal Result Performing Organization Address [facility] de Phone Number [address] [employer] [address] * (ABNORMAL) Iron profile w/ IBC (10/21/2024 11:05 AM BALL HOLDER) Iron 24(L) 35 - 145 mcg/dL Comment:Testing performed by : [address] [address] TIBC 368 250 - 400 mcg/dL STEVEN Comment:Testing performed by : [address] [address] Transferrin saturation 7(L) 20 - 50 % STEVEN Comment:Testing performed by : [address] [address] Blood 10/21/2024 11:0 5 AM BALL HOLDER 10/21/2024 11:47 AM BALL HOLDER Suman Aparicio MD LAB BLOOD ORDERABLES Fi nal Result Performing Organization Address [facility] Co de Phone Number [address] [employer] [address] documented in this encounter Visit Diagnoses Diagnosis Iron deficiency anemia, unspecified iron deficiency anemia type documented in this encounter Care Teams Information Technology Administrator Relationship Specialty Start Date End Date Darshana Sellers PA PCP - General Physician Rodding Anode Worker 02/14/22 Suman Aparicio MD [address] [place] [address] MEDICAL ONCOLOGY, [address] [address] Medical Oncologist/Accounts Payables Clerk Hematology and Oncology 10/12/24 documented as of this encounter
--- OUTSIDE RECORDS SUMMARY | 2024-10-21 20:36 | XMS_ITS | Patient Health Summary ---
Author Organization [facility] Address [address] [facility] [place] [address] Care Team Providers Care Oxygen Plant Operator Name Role Phone Roel Aragon MD Primary Care Provider Unavail able Note from [facility],non-owned Affiliates and Associated Physician Practices is amultiple site organization consisting of ambulatory clinics and hospital sitesin [place], [place], [place] and [place]. This disclosure is being madepursuant to the Care Everywhere program and may not contain all information available regarding this patient. Last updated 18.[facility] Allergies No known active allergies Medications * Be aware that medications may not be up to date on this document. Alwaysverify current medications with the patient. * ondansetron, disintegrating, (ZOFRAN ODT) 4 MG tablet Take 2 (two) tablets by mouth every 6 hours as needed for Nausea/Vomiting Allow tablet to dissolve on the tongue * omeprazole (PRILOSEC) 20 MG capsule Take 1 (one) capsule by mouth daily before breakfast * promethazine (PHENERGAN) 25 MG tablet(Started 04/03/2018) Take 1 tablet by mouth every 6 hours as needed for Nausea/Vomiting * acetaminophen (Tylenol) 500 MG capsule Take 600 mg by mouth as needed * benzoyl peroxide (Benzac) 5 % wash APPLY A THIN LATER TO THE AFFECTED AREA EVERY DAY * clindamycin (Cleocin) 1 % gel(Started 11/30/2021) APPLY THIN LAYER TOPICALLY TO THE AFFECTED AREA EVERY DAY * etonogestrel (Nexplanon) 68 MG implant Nexplanon 68 mg subdermal implant Inject 1 implant by subcutaneous route. * ibuprofen (Motrin) 600 MG tablet Take 1 (one) tablet by mouth every 8 hours as needed * meloxicam (Mobic) 7.5 MG tablet(Started 11/28/2022) Take 1 (one) tablet by mouth once daily 5 refills by 11/28/2023 * tiZANidine (Zanaflex) 2 MG tablet(Started 11/28/2022) Take 1 (one) tablet by mouth every 8 hours as needed for Muscle Spasms 2 refills by 11/28/2023 Social History Tobacco Use Types Packs/Day Years [...] Mass Index 33.3 11/28/2022 1:56 PM CDT Procedures * HCG URINE QUALITATIVE(Performed 04/03/2018) * URINALYSIS W/MICROSCOPIC REFLEX TO CULTURE(Performed 04/03/2018) * CULTURE URINE(Performed 04/03/2018) * HCG URINE QUAL POCT NOTIFICATION(Performed 04/03/2018) Results * (ABNORMAL) URINALYSIS W/MICROSCOPIC REFLEX TO CULTURE (04/03/2018 2:31 AM CDT) Color UA Jazz(A) Straw, Yellow 04/03/2018 2:38 AM CDT [facility] Clarity UA Cloudy(A) Clear 04/03/2018 2:38 AM [facility] Glucose UA Negative Negative 04/03/2018 2:38 AM [facility] Bilirubin UA Negative Negative 04/03/2018 2:38 AM [facility] Ketone UA Trace(A) Negative 04/03/2018 2:38 AM [facility] Specific Linden UA 1.025 1.005 - 1.030 04/03/2018 2:38 AM [facility] Blood UA 3+(A) Negative 04/03/2018 2:38 AM [facility] pH UA 5.0 5.0 - 8.0 pH 04/03/2018 2:38 AM [facility] Protein UA 1+(A) Negative 04/03/2018 2:38 AM [facility] Urobilinogen UA 4.0(A) Negative mg/dL 04/03/2018 2:38 AM [facility] Nitrite UA Negative Negative 04/03/2018 2:38 AM [facility] Leukocyte UA Trace(A) Negative 04/03/2018 2:38 AM [facility] RBC UA >100(A) None Seen, 0-5 # /hpf 04/03/2018 2:38 AM [facility] WBC UA 21-50(A) None Seen, 0-5 # /hpf 04/03/2018 2:38 AM [facility] WBC Clumps UA Many(A) None Seen /HPF 04/03/2018 2:38 AM [facility] Bacteria UA 2+(A) None Seen 04/03/2018 2:38 AM [facility] Squamous Epithelial Cells 6-10(A) None Seen, 0-2, 3-5 /hpf 04/03/2018 2:38 AM [facility] Mucus UA 4+ /LPF 04/03/2018 2:38 AM [facility] Budding Yeast Many(A) None seen /hpf 04/03/2018 2:38 AM [facility] Reflex Status Culture to follow 04/03/2018 2:38 AM [facility] Urine URINE SPECIMEN OBTAINED BY CLEAN CATCH PROCEDURE / Unknown Collection / Unknown 04/03/2018 2:31 AM T 04/03/2018 2:31 AM CDT Narrative [facility] - 04/03/2018 2:38 AM CDT Lionel Goldstein Archiejoce LAB - URINALYSIS ORD ERABLES Performing Organization Address [facility] Co de Phone Number [facility] [address] [place] [phone] * HCG URINE QUALITATIVE (04/03/2018 2:31 AM CDT) hCG Qualitative Urine Negative Negative 04/03/2018 2:36 AM CDT [facility] Urine URINE / Unknown Collection / Unknown 04/03/2018 2:31 AM CDT 04/03/2018 2:31 AM CDT Lionel Zimmerman LAB - URINALYSIS ORD ERABLES Performing Organization Address [facility] de Phone Number [facility] [address] [place] [phone] * CULTURE URINE (04/03/2018 2:31 AM CDT) Culture Urine <10,000 CFU/mL urogenital payal DAVID 04/04/2018 3:24 PM CDT [facility] Urine URINE SPECIMEN OBTAINED BY CLEAN CATCH PROCEDURE / Unknown Collection / Unknown 04/03/2018 2:31 AM CDT 04/03/2018 2:31 AM CDT Lionel Zimmerman DO LAB - MICROBIOLOGY O RDERABLES Performing Organization Address [facility] Co de Phone Number [facility] [address] [place] [address] [phone] * HCG URINE QUAL POCT NOTIFICATION (04/03/2018 12:24 AM CDT) Comment Notification Label Only - See Separate Report 04/03/2018 2:01 AM CDT [facility] Urine URINE / Unknown 04/03/2018 1 2:24 AM CDT 04/03/2018 12:24 AM CDT Lionel Zimmerman DO LAB - URINALYSIS ORD ERABLES [facility] [address] [facility] [place] [address] Care Teams Oxygen Plant Operator Relationship Specialty Start Date End Date Roel Aragon MD PCP - General 03/22/22
--- OUTSIDE RECORDS SUMMARY | 2024-10-21 20:36 | XMS_ITS | Clinical Summary ---
Author Organization [facility] Address [address] [place] [address] Care Team Providers Care Wireless Watcher Name Role Phone Darshana Sellers Primary Care Provider + Suman Aparicio MD Unavailable [phone] Allergies No known active allergies Medications ibuprofen [...] Date Diagnosed Date Iron deficiency anemia 06/04/2022 Encounters Date Type Department Care Team Description 10/21/2024 11:30 AM CUSTOMER SALES CONSULTANT Office Visit [facility]icians [facility] Oncology [address] [place] [address] [address] [place] [phone] Suman Aparicio MD Iron deficiency anemia, unspecified iron deficiency anemia type (Primary Dx) 10/21/2024 11:00 AM CUSTOMER SALES CONSULTANT Lab [facility] [address] [place] [address] Iron deficiency anemia, unspecified iron deficiency anemia type 08/26/2024 Telephone [facility] Oncology [address] [place] [phone] Faye Mix 08/26/2024 Orders Only [facility] [address] [place] [phone] Jayshree Duke RN Iron deficiency anemia, unspecified iron deficiency anemia type (Primary Dx) 08/25/2024 Telephone [facility] Oncology [address] [place] [phone] Jayshree Duke, LORENA from Last 3 Months Immunizations Name Administration Dates Next Due DTaP 12/26/2007, 5,2003,07/07,2003 HPV9 04/19/2017,04/16/2014 Hep A, Ped Unspecified 12/20/2006,06/14/2006 Hep B, Adolescent or Pediatric 2003,2002,2003 HiB 06/09/2004, 4,2003,05/05 IPV 12/26/2007, 5,2003,05/05 Influenza, Quadrivalent, Spl it, Pediatric, Preservative Free, Intramuscular 06/06/2012,06/22/2011 Influenza, Split 07/01/2009,08/05/2008 Influenza, Unspecified 07/17/2007 MMR 12/26/2007,06/09/2004 Meningococcal ACWY, Unspecified 04/16/2014 Pneumococcal Conjugate 7-Valent 06/09/20 04,2003,2003,05/05 Tdap 04/16/2014 Varicella 12/26/2007,06/09/2004 Surgical History Surgery Date Site/Laterality Comments CYSTECTOMY 03/21/2022 Left Medical History Medical History Date Comments Anemia Family History Medical History Relation Name Comments Diabetes Maternal Grandfather Heart attack Paternal Grandfather Heart failure Paternal Grandmother Relation Name Status Comments Father Alive Maternal Grandfather Maternal Grandmother Mother Alive Paternal Grandfather Paternal Grandmother Alive Social History Tobacco Use Types Packs/Day Years [...] on file Legal Sex Female 7:31 PM CUSTOMER SALES CONSULTANT Gender Identity Not on file Sexual Orientation Not on file Obstetrics History Last Filed Vital Signs Vital Sign Reading Time Taken Comments Blood Pressure 104/71 10/21/2024 11:14 AM CUSTOMER SALES CONSULTANT Pulse 66 10/21/2024 11:14 AM CUSTOMER SALES CONSULTANT Temperature 37.1 C (98.8 F) 10/21/2024 11:14 AM CUSTOMER SALES CONSULTANT Respiratory Rate 18 10/21/2024 11:1 4 AM CUSTOMER SALES CONSULTANT Oxygen Saturation 98% 10/21/2024 11: 14 AM CUSTOMER SALES CONSULTANT Inhaled Oxygen Concentration - - Weight 116.1 kg (256 lb) 10/21/2024 11: 14 AM CUSTOMER SALES CONSULTANT Height 171.5 cm (5' 7.5 ) 10/21/2024 11 :14 AM CUSTOMER SALES CONSULTANT pt refused to remove shoes Body Mass Index 39.5 10/21/2024 11:14 AM CUSTOMER SALES CONSULTANT Plan of Treatment Health Maintenance Due Date Last Done Comments Cervical Cancer Screening 2003 Depression Screening 2003 Hepatitis C Screening 2003 Meningococcal B Vaccine (1 of 2 - Patient Seeks Protection) 2019 Regular Well Visit/Exam 18-64 2021 DTaP/Tdap/Td Vaccine (7 - Td or Tdap) 04/16/2024 04/16/2014, 12/26/2007, 10/13/2004, Additional history exists Influenza Vaccine (#1) 2024 2, 06/22/2011, 07/01/2009, Additional history exists Pneumococcal vaccine <65 Completed 004, 2003, 2003, Additional history exists Varicella Vaccines Completed 12/26/2007, 06/09/2004 Meningococcal Vaccine Aged Out 04/16/2014 No ruba shay eligible based on patient's age to complete this topic HPV Vaccines Completed 04/19/2017, 04/16/2014 Hepatitis B Screening Completed 08/10/2024 , 07/06/2024, 2003, Additional history exists Procedures Procedure Name Priority Date/Time Associated Diagnosis Comments DIFFERENTIAL AUTO Routine 10/21/2024 11: 05 AM CUSTOMER SALES CONSULTANT Iron deficiency anemia, unspecified iron deficiency anemia type CBC WITH AUTO DIFFERENTIAL Routine 10/21/2024 11:05 AM CUSTOMER SALES CONSULTANT Iron deficiency anemia, unspecified iron deficiency anemia type FERRITIN Routine 10/21/2024 11:05 AM CUSTOMER SALES CONSULTANT Iron deficiency anemia, unspecified iron deficiency anemia type IRON PROFILE W/ IBC Routine 10/21/2024 1 1:05 AM CUSTOMER SALES CONSULTANT Iron deficiency anemia, unspecified iron deficiency anemia type from Last 3 Months Results * (ABNORMAL) Differential, auto (10/21/2024 11:05 AM CUSTOMER SALES CONSULTANT) Neutrophil abs 9.5(H) 1.5 - 6.5 K/cumm Comment:Testing performed by : [facility], [address] [place] [address]., [address] Imm gran abs 0.1 0.0 - 0.1 K/cumm [facility] Comment:Testing performed by : [address] [address] Lymphocyte abs 1.1 0.8 - 3.3 K/cumm [facility] Comment:Testing performed by : [address] [address] Monocyte abs 0.7 0.2 - 0.8 K/cumm [facility] Comment:Testing performed by : [address], [place]., [address] Eosinophil abs 0.4 0.0 - 0.5 K/cumm [facility] Comment:Testing performed by : [address], [place]., [address] Basophil abs 0.0 0.0 - 0.1 K/cumm [facility] Comment:Testing performed by : [address] [address] Neutrophil pct 80.4 % [facility] Comment: Interpretive Data Percent cell count reference ranges are not reported, since discordance with absolute values may lead to misinterpretation of CBC data. Current Interpretive Data was last revised on 2017. Testing performed by: [address] [address] Imm gran pct 0.4 % [facility] Comment: Interpretive Data Percent cell count reference ranges are not reported, since discordance with absolute values may lead to misinterpretation of CBC data. Current Interpretive Data was last revised on 2017. Testing performed by: [address] [address] Lymphocyte pct 9.7 % [facility] Comment: Interpretive Data Percent cell count reference ranges are not reported, since discordance with absolute values may lead to misinterpretation of CBC data. Current Interpretive Data was last revised on 2017. Testing performed by: [address] [address] Monocyte pct 5.9 % [facility] Comment: Interpretive Data Percent cell count reference ranges are not reported, since discordance with absolute values may lead to misinterpretation of CBC data. Current Interpretive Data was last revised on 2017. Testing performed by: [address] [address] Eosinophil pct 3.4 % [facility] Comment: Interpretive Data Percent cell count reference ranges are not reported, since discordance with absolute values may lead to misinterpretation of CBC data. Current Interpretive Data was last revised on 2017. Testing performed by: [address] [address] Basophil pct 0.2 % [facility] Comment: Interpretive Data Percent cell count reference ranges are not reported, since discordance with absolute values may lead to misinterpretation of CBC data. Current Interpretive Data was last revised on 2017. Testing performed by: [address] [address] Blood 10/21/2024 11:0 5 AM CUSTOMER SALES CONSULTANT 10/21/2024 11:07 AM CUSTOMER SALES CONSULTANT Suman Aparicio MD LAB BLOOD ORDERABLES Fi nal Result Performing Organization Address [facility] Co de Phone Number [address] [address] * (ABNORMAL) Iron profile w/ IBC (10/21/2024 11:05 AM CUSTOMER SALES CONSULTANT) Iron 24(L) 35 - 145 mcg/dL Comment:Testing performed by : [address] [address] TIBC 368 250 - 400 mcg/dL [facility] Comment:Testing performed by : [address] [address] Transferrin saturation 7(L) 20 - 50 % [facility] Comment:Testing performed by : [address] [address] Blood 10/21/2024 11:0 5 AM CUSTOMER SALES CONSULTANT 10/21/2024 11:47 AM CUSTOMER SALES CONSULTANT Suman Aparicio MD LAB BLOOD ORDERABLES Fi nal Result Performing Organization Address [facility] Co de Phone Number [address] [employer] [place] [address] * (ABNORMAL) CBC with auto differential (10/21/2024 11:05 AM CUSTOMER SALES CONSULTANT) WBC 11.8(H) 3.8 - 9.9 K/cumm Comment:Testing performed by : [address], [address] Hgb 13.0 11.9 - 15.5 g/dL [facility]EVEN Comment:Testing performed by : [address] [address] Hct 41.2 35.6 - 45.5 % [facility]EVEN Comment:Testing performed by : [address] [address] Plt 344 150 - 400 K/cumm [facility]EN Comment:Testing performed by : [address] [address] MPV 10.3 9.1 - 12.3 fL [facility]EVEN Comment:Testing performed by : [address] [address] RBC 5.36(H) 3.90 - 5.20 M/cumm [facility]EVEN Comment:Testing performed by : [address] [address] MCV 76.9(L) 81.3 - 96.4 fL [facility]EVEN Comment:Testing performed by : [address] [address] MCH 24.3(L) 27.1 - 33.3 pg [facility]EVEN Comment:Testing performed by : [address] [address] MCHC 31.6(L) 32.3 - 35.7 g/dL [facility]EVEN Comment:Testing performed by : [address], [address] RDW CV 13.7 11.1 - 14.9 % [facility]EVEN Comment:Testing performed by : [address], [address] RDW SD 37.8 35.7 - 48.1 fL [facility] Comment:Testing performed by : [address] [address] NRBC abs 0.00 0.00 - 0.01 K/cumm [facility] Comment:Testing performed by : [address] [address] Blood 10/21/2024 11:0 5 AM CUSTOMER SALES CONSULTANT 10/21/2024 11:07 AM CUSTOMER SALES CONSULTANT Suman Aparicio MD LAB BLOOD ORDERABLES Fi nal Result Performing Organization Address [facility] de Phone Number [id number] [address] * (ABNORMAL) Ferritin (10/21/2024 11:05 AM CUSTOMER SALES CONSULTANT) Ferritin 14(L) 15 - 150 ng/mL Comment:Testing performed by : [address] [address] Blood 10/21/2024 11:0 5 AM CUSTOMER SALES CONSULTANT 10/21/2024 11:47 AM CUSTOMER SALES CONSULTANT Suman Aparicio MD LAB BLOOD ORDERABLES Fi nal Result Performing Organization Address [facility] de Phone Number [id number] [address] from Last 3 Months Insurance [facility] Care Teams Wireless Watcher Relationship Specialty Start Date End Date Darshana Sellers PA PCP - General Physician Seal Mixing Operator 02/14/22 Suman Aparicio MD [facility], [facility] [address] [place] [address] Medical Oncologist/Space Physicist Hematology and Oncology 10/12/24
--- OUTSIDE RECORDS SUMMARY | 2024-10-21 20:36 | XMS_ITS | Data Portability ---
Author Organization [facility] Lilian [facility] Address [address] [place] [address] Care Team Providers Care Citrix Architect Name Role Phone CLIFFORD JENKINS Corn Cooker MARTÍN MANCIA Primary Care Provider Assessment Encounter Date Assessment Date Assessment LastModified by Organization Details LastModified Time 05/06/2024 05/06/2024 10 days of this month [email or web address] Not available 05/06/2024 17:17:35 Plan of Treatment Reminders Order Date Submit Date Provider Last Modified By Organization Details Last Modified Time Details Appointments None recorded. Lab urinalysis, dipstick 2023 024 [email or web address] In-Office Order, Internal Use Only DO Not Attach Compendium DO Not Attach Compendium, Do Not Delete/merge, [id number] 08:19:31 culture, urine 2023 024 [facility], [address] [facility], [address], [address], 4 09:20:37 Referral None recorded. Procedures None recorded. Surgeries None recorded. Imaging None recorded. Medication Orders amitriptyli ne 25 mg tablet 2023 024 [facility] [address], [address] [place], [address], 4 17:14:22 Patient TargetsNo targets recorded. Patient InstructionsNo instructions recorded. Reason for Referral None Reported. Results Created Date Observation Date Name Description Value Unit Range Abnormal Flag Note LastModifiedBy Organization Detail LastModifiedTime 05/01/20 24 05/02/2024 HEPAT IC FUNCT ION PANEL (7) protein, total 7.4 g/dL 6.0-8. 5 Not Available [facility] ([facility]) [address] [place], [place], [address], 05/02/2024 14:12:50 05/01/20 24 05/02/2024 HEPAT IC FUNCT ION PANEL (7) albumin 4.4 g/dL 4.0-5. 0 Not Available [facility] ([facility]) [address] [place], [address], 05/02/2024 14:12:50 05/01/20 24 05/02/2024 HEPAT IC FUNCT ION PANEL (7) bilirubin, total 0.6 mg/dL 0.0-1. 2 Not Available [facility] ([facility]) [address], [place], [address], 05/02/2024 14:12:50 05/01/20 24 05/02/2024 HEPAT IC FUNCT ION PANEL (7) bilirubin, direct 0.16 mg/dL 0.00-0 .40 Not Available [facility] ([facility]) [address], [place], [address], 05/02/2024 14:12:50 05/01/20 24 05/02/2024 HEPAT IC FUNCT ION PANEL (7) alkaline phosphatase 83 IU/L 44-121 Not Available [facility] ([facility]) [address] [place], [address], 05/02/2024 14:12:50 05/01/20 24 05/02/2024 HEPAT IC FUNCT ION PANEL (7) AST (SGOT) 48 IU/L 0-40 above high normal Not Available [facility] ([facility]) [address], [place], [address], 05/02/2024 14:12:50 05/01/20 24 05/02/2024 HEPAT IC FUNCT ION PANEL (7) ALT (SGPT) 49 IU/L 0-32 above high normal Not Available [facility] ([facility]) [address] [facility], [place], [address], 05/02/2024 14:12:50 05/20/20 24 05/20/2024 urina lysis , dipst ick Leukocytes Small Not Available In-Offi ce Order Internal Use Only DO Not Attach Compendium DO Not Attach Compendium, Do Not Delete/merge, [id number] 05/20/2024 14:48:53 05/20/20 24 05/20/2024 urina lysis , dipst ick Nitrite negati ve Not Available In-Office Order Internal Use Only DO Not Attach Compendium DO Not Attach Compendium, Do Not Delete/merge, 05/20/2024 14:48:53 05/20/20 24 05/20/2024 urina lysis , dipst ick Urobilinogen .2 Not Available In-Of fice Order Internal Use Only DO Not Attach Compendium DO Not Attach Compendium, Do Not Delete/merge, 05/20/2024 14:48:53 05/20/20 24 05/20/2024 urina lysis , dipst ick Protein Negati ve Not Available In-Office Order Internal Use Only DO Not Attach Compendium DO Not Attach Compendium, Do Not Delete/merge, 05/20/2024 14:48:53 05/20/20 24 05/20/2024 urina lysis , dipst ick pH 6.0 Not Available In-Office Order Internal Use Only DO Not Attach Compendium DO Not Attach Compendium, Do Not Delete/merge, 05/20/2024 14:48:53 05/20/20 24 05/20/2024 urina lysis , dipst ick Blood Small Not Available In-Office Order Internal Use Only DO Not Attach Compendium DO Not Attach Compendium, Do Not Delete/merge, 05/20/2024 14:48:53 05/20/20 24 05/20/2024 urina lysis , dipst ick Specific [place] 1.010 Not Available In-Off ice Order Internal Use Only DO Not Attach Compendium DO Not Attach Compendium, Do Not Delete/merge, 05/20/2024 14:48:53 05/20/20 24 05/20/2024 urina lysis , dipst ick Ketone Negati ve Not Available In-Office Order Internal Use Only DO Not Attach Compendium DO Not Attach Compendium, Do Not Delete/merge, 05/20/2024 14:48:53 05/20/20 24 05/20/2024 urina lysis , dipst ick Bilirubin Negati ve Not Available In-Office Order Internal Use Only DO Not Attach Compendium DO Not Attach Compendium, Do Not Delete/merge, 05/20/2024 14:48:53 05/20/20 24 05/20/2024 urina lysis , dipst ick Glucose Negati ve Not Available In-Office Order Internal Use Only DO Not Attach Compendium DO Not Attach Compendium, Do Not Delete/merge, 05/20/2024 14:48:53 05/20/20 24 05/20/2024 urina lysis , dipst ick Appearance Slight ly Cloudy Not Available In-Office Order Internal Use Only DO Not Attach Compendium DO Not Attach Compendium, Do Not Delete/merge, 05/20/2024 14:48:53 05/20/20 24 05/20/2024 urina lysis , dipst ick Color Pale Yellow Not Available In-Office Order Internal Use Only DO Not Attach Compendium DO Not Attach Compendium, Do Not Delete/merge, 05/20/2024 14:48:53 Result Notes None recorded. Problems Name Problem SNOMED Code Status Onset Date Resolution Date Notes Provider Name and Address Organization Details Recorded Time Mixed anxiety and depressive disorder 734171243 Completed 201801/19/2021 SONY KRAUSE Attn: Italo beltran,[address] [facility], [place], [address], [place] [facility] 13:02:29 Acne 00327378 Active 2021 SONY KRAUSE Attn: Italo beltran,[address] [facility], [place], [address], [place] [facility] 2 15:56:18 Obesity 840776590 Active 2022 SONY KRAUSE Attn: Italo beltran,[address] [facility], [place], [address], [place] [facility] 3 13:34:19 Pharyngitis 086732229 Completed 04/19/2017 LILLY Bonilla Attn: Italo beltran,[address] [facility], [place], [address], [place] [facility] 7 18:35:35 Problem Notes None recorded. Medical Equipment None Reported. Allergies No known drug allergies Medications Name Sig Start Date Stop Date Status Note LastModified by Organization Details LastModified Time tizanidin e 2 mg tablet TAKE 1 TABLET BY MOUTH EVERY 8 HOURS NEEDED FOR MUSCLE SPASMS 03/28 completed Not Available Not Available Not Available azithromy thu 250 mg tablet TAKE 2 TABLETS (500 MG) BY ORAL ROUTE ONCE DAILY FOR 1 DAY THEN 1 TABLET (250 MG) BY ORAL ROUTE ONCE DAILY FOR 4 DAYS 06/06 completed Not Available Not Available Not Available fluconazo le 150 mg tablet TAKE 1 TABLET BY MOUTH EVERY DAY 12/31 completed Not Available Not Available Not Available hydrocodo ne 5 mg-acetam inophen 325 mg tablet TAKE 1 TABLET BY MOUTH EVERY 6 HOURS 12/31 completed Not Available Not Available Not Available Claritin 10 mg tablet Take 1 tablet every day by oral route as needed. 01/18 completed Not Available Not Available Not Available phenazopy ridine 200 mg tablet TK ONE T PO TID 01/18 completed Not Available Not Available Not Available metronida zole 0.75 % (37.5 mg/5 gram) vaginal gel INSERT 1 APPLICAT ORFUL VAGINALL Y EVERY NIGHT AT BEDTIME FOR 5 NIGHTS 08/07 completed Not Available Not Available Not Available prednison e 20 mg tablet TAKE 2 TABLETS BY MOUTH ONCE DAILY FOR 5 DAYS active Not Available Not Available No t Available sumatript an 50 mg tablet TAKE 1 TABLET BY MOUTH AT ONSET OF MIGRAINE . MAY REPEAT DOSE 1 TIME AFTER 2 HOURS 11/30 completed Not Available Not Available Not Available prochlorp erazine maleate 10 mg tablet active Not Available Not Available Not Available ciproflox acin 500 mg tablet TAKE 1 TABLET BY MOUTH EVERY 12 HOURS 11/30 completed Not Available Not Available Not Available butalbita l-acetami nophen-ca ffeine 50 mg-325 mg-40 mg tablet TAKE 1 TABLET BY MOUTH EVERY 4 HOURS NEEDED 05/06 completed Not Available Not Available Not Available ondansetr on 8 mg disintegr ating tablet DISSOLVE 1 TABLET ON THE TONGUE EVERY 4 TO 6 HOURS NEEDED FOR NAUSEA OR VOMITING 11/30 completed Not Available Not Available Not Available meloxicam 7.5 mg tablet TAKE 1 TABLET BY MOUTH EVERY DAY 05/06 completed Not Available Not Available Not Available amitripty line 25 mg tablet TAKE 1 TABLET BY MOUTH ONCE DAILY AT BEDTIME FOR 90 DAYS active Not Available Not Available No t Available clindamyc in 1 % topical gel APPLY THIN LAYER TOPICALL Y TO THE AFFECTED AREA 1 TIME PER DAY active Not Available Not Available No t Available meclizine 25 mg tablet TAKE 1 TABLET BY MOUTH THREE TIMES DAILY NEEDED 05/06 completed Not Available Not Available Not Available phenazopy ridine 100 mg tablet TAKE 1 TABLET BY MOUTH TWICE DAILY NEEDED FOR PAIN 11/30 completed Not Available Not Available Not Available benzonata te 100 mg capsule TAKE 1 CAPSULE BY MOUTH THREE TIMES DAILY FOR 5 DAYS NEEDED 05/06 completed Not Available Not Available Not Available cephalexi n 500 mg capsule TAKE 1 CAPSULE BY MOUTH THREE TIMES DAILY FOR 7 DAYS. 11/30 completed Not Available Not Available Not Available pantopraz ole 40 mg tablet,de layed release TAKE 1 TABLET BY MOUTH EVERY MORNING FOR 10 DAYS 05/06 completed Not Available Not Available Not Available sertralin e 25 mg tablet Take 1 tablet every day by oral route for 4 days. 01/18 completed Not Available Not Available Not Available Tylenol 325 mg tablet Take by oral route. 02/02 completed Headache s Not Available Not Available Not Available hydroxyzi ne HCl 25 mg tablet TAKE 1 TABLET BY MOUTH EVERY DAY NEEDED 05/06 completed Not Available Not Available Not Available ibuprofen 600 mg tablet TAKE 1 TABLET BY MOUTH EVERY 8 HOURS NEEDED 05/06 completed Not Available Not Available Not Available benzoyl peroxide 5 % topical cleanser APPLY A THIN LAYER TO THE AFFECTED AREA ONCE DAILY active Not Available Not Available No t Available polyethyl mario glycol 3350 17 gram/dose oral powder TAKE 17 GIVE EVERY DAY BY ORAL ROUTE NEEDED 05/06 completed Not Available Not Available Not Available methylpre dnisolone 4 mg tablets in a dose pack FOLLOW PACKAGE DIRECTIO NS 06/06 completed Not Available Not Available Not Available ondansetr on 4 mg disintegr ating tablet DISSOLVE 1 TABLET ON THE TONGUE EVERY 8 HOURS NEEDED FOR NAUSEA OR VOMITING active Not Available Not Available No t Available cefdinir 300 mg capsule TAKE 1 CAPSULE BY MOUTH EVERY 12 HOURS UNTIL ALL TAKEN 03/28 completed Not Available Not Available Not Available sertralin e 50 mg tablet TAKE 1 TABLET BY MOUTH EVERY DAY 01/18 completed Not Available Not Available Not Available diazepam 5 mg tablet 05/06 completed Not Available Not Available Not Available nitrofura ntoin monohydra te/macroc rystals 100 mg capsule Take 1 capsule every 12 hours by oral route for 5 days. 2023 active Not Available Not Available Not Avai lable FeroSul 325 mg (65 mg iron) tablet TAKE ONE TABLET BY MOUTH DAILY 04/26 completed Not Available Not Available Not Available ferrous sulfate 220 mg (44 mg iron)/5 mL oral solution Take 5 mL every day by oral route for 30 days. 12/31 completed Not Available Not Available Not Available Estarylla 0.25 mg-35 mcg tablet TAKE 1 TABLET BY MOUTH EVERY DAY 12/31 completed Not Available Not Available Not Available Victoza 3-Logan 0.6 mg/0.1 mL (18 mg/3 mL) subcutane ous pen injector Inject 1.2 mg every day by subcutan eous route. 05/06 completed Not Available Not Available Not Available ferrous sulfate 220 mg (44 mg iron)/5 mL oral elixir TAKE 5 ML BY MOUTH DAILY FOR 30 DAYS 12/31 completed Not Available Not Available Not Available BinaxNOW COVID-19 Ag Self Test kit TEST DIRECTED TODAY active Not Available Not Available No t Available Wegovy 0.25 mg/0.5 mL subcutane ous pen injector Inject by subcutan eous route for 28 days. 06/27 completed Not Available Not Available Not Available Vitals Date Recorded Body height Body mass index (BMI) Percentile per age and sex Body mass index (BMI) Body weight Heart rate Oxygen saturation Oxygen saturation in Arterial blood by Pulse oximetry Systolic blood pressure Diastolic blood pressure Provider Name and Address Organization Details Last Updated DateTime 3 172.72 cm 98 % 37.3 kg/m2 200028. 13 g 119 /min 97 % 97 % 110 mm[Hg] 68 mm[Hg] Rosy Floyd [facility] 3 16:09:46 Date Recorded Body height Body mass index (BMI) Body weight Heart rate Oxygen saturation Oxygen saturation in Arterial blood by Pulse oximetry Provider Name and Address Organization Details Last Updated DateTime 4 172.72 cm 39.1 kg/m2 568891. 24 g 80 /min 99 % 99 % Rosy Floyd [facility] 4 16:52:40 Date Recorded Systolic blood pressure Diastolic blood pressure Provider Name and Address Organization Details Last Updated DateTime 05/06/2024 112 mm[Hg] 81 mm[Hg] SONY KRAUSE Attn: Accounting, [place], [address], [facility] 05/06/2024 16:56:58 Social History Question Answer Notes LastModified by Organizat ion Details LastModified Time Tobacco Smoking Status Never Smoker LILLY Bonilla Attn: Account[address] [place], [address], [facility] 04/19/2017 14:37:44 What Is Your Level Of Alcohol Consumption? Moderate Information not available 2022 What Is Your Level Of Caffeine Consumption? Occasional Information not available 04/19/2017 In The 14 Days Before Symptom Onset, Have You Had Close Contact With A [facility] While That Case Was Ill? No Information not available 01/18/2021 In The 14 Days Before Symptom Onset, Have You Had Close Contact With A Person Who Is Under Investigation For COVID-19 While That Person Was Ill? No Information not available 01/18/2021 Have You Been To An Area Known To Be High Risk For COVID-19? No [facility] Information not available 2022 What Type Of Diet Are You Following? REGULAR Information not available 04/19/2017 What Is Your Home Situation? Both Parents Information not available 04/19/2017 Parent Involvement? Both Parents Involved Information not available 04/19/2017 What Was The Date Of Your Most Recent Tobacco Screening? 12/31/2022 [email or web address] Information not available 12/31/2022 Pool Exposure Yes Information not available 04/19/2017 What Is The Name Of Your School? [employer] Information not available 04/19/2017 Do You Use Your Seat Belt Or Car Seat Routinely? Yes Information not available 04/19/2017 Do You Have Any Siblings? 1 Information not available 04/19/2017 Do You Have Smoke And Carbon Monoxide Detectors In Your Home? Yes Information not available 04/19/2017 Are You Passively Exposed To Smoke? Yes Information not available 04/19/2017 Has Tobacco Cessation Counseling Been Provided? Yes Information not available 11/30/2021 On What Date Was Tobacco Cessation Counseling Provided? 12/31/2022 [email or web address] Information not available 12/31/2022 Year In School 9 Informat[employer] not available 04/19/2017 Sex: Female Functional Status Question Answer Note LastModified by Organization D etails LastModified Time What is your exercise level? None Information not available 04/19/2017 Mental Status None recorded. Family History Relationship Description Onset Age of this Age Resolved Age Notes LastModified by Organization Details LastModified Time Father Hypertensive disorder Not available 2016 14:35:52 Maternal Grandfather Diabetes mellitus 40 72 Not available 2016 14:36:38 Maternal Grandfather Myocardial infarction 60 60 Not available 04/19 14:37:31 Maternal Grandmother Congestive heart failure Not available 2016 14:36:55 Medical History Condition Response Coronary Artery Disease N Other N Atrial Fibrillation N High Blood Pressure N Depression N COPD N Blood Clots N Anxiety Disorder N Muscle, Joint, or Bone Problems N Acid Reflux (GERD) N Cancer N Stroke N High Cholesterol N Liver Disease N Headaches N Kidney or Bladder Problems N Thyroid Problems N GI Problems N Skin Problems N Anemia N Heart Attack (IA) N Diabetes N Seizures/Epilepsy N Asthma N Allergies Y Hepatitis N Osteoporosis N Heart Failure N Gynecological History Statement/Question Response Flow Moderate Date of LMP 11/23/2022 Frequency of Cycle (Q days) 28 Menses Monthly Y Duration of Flow (days) 6 Age at Menarche 9 Current Control Method None LMP Approximate Obstetrics History GPAL:G 0 P 0 0 0 0 Type Value Multiple Births 0 Full Term 0 Induced 0 Spontaneous 0 Premature 0 Living 0 Ectopics 0 Total 0 Immunizations Vaccine Type Date Status Note Provider Nam e and Address Organization Details Recorded Time DTaP 3 completed [place] [facility] 08/03/2021 09:48:27 DTaP 3 completed [place] [facility] 08/03/2021 09:48:33 DTaP 4 [place] [facility] 08/03/2021 09:48:46 DTaP 5 completed [place] [facility] 08/03/2021 09:48:53 DTaP 8 completed [place] [facility] 08/03/2021 09:48:59 Hib, unspecified formulation 3 completed [place] [facility] 08/03/2021 09:54:28 Hib, unspecified formulation 3 completed [place] [facility] 08/03/2021 09:54:34 Hib, unspecified formulation 4 completed [place] [facility] 08/03/2021 09:54:38 Hib, unspecified formulation 4 completed [place] [facility] 08/03/2021 09:54:43 Hep A, unspecified formulation 6 completed [place] [facility] 08/03/2021 09:55:13 Hep A, unspecified formulation 7 completed [place] [facility] 08/03/2021 09:55:18 Hep B, adolescent or pediatric 3 completed [place] [facility] 08/03/2021 09:55:38 Hep B, adolescent or pediatric 3 completed [place] [facility] 08/03/2021 09:55:44 Hep B, adolescent or pediatric 4 completed [place] [facility] 08/03/2021 09:55:49 HPV9 4 [place] [facility] 08/03/2021 09:56:42 Influenza, injectable,quadriv alent, preservative free, pediatric 8 completed [place] [facility] 08/03/2021 11:27:19 Influenza, injectable,quadriv alent, preservative free, pediatric 9 completed [place] [facility] 08/03/2021 11:27:24 Influenza, injectable,quadriv alent, preservative free, pediatric 1 completed [place] [facility] 08/03/2021 11:27:30 Influenza, injectable,quadriv alent, preservative free, pediatric 2 completed [place] [facility] 08/03/2021 11:27:39 MMR 4 completed [place] [facility] 08/03/2021 11:27:58 MMR 8 completed [place] [facility] 08/03/2021 11:28:03 meningococcal ACWY, unspecified formulation 4 completed [place] [facility] 08/03/2021 11:28:27 pneumococcal conjugate PCV 7 3 completed [place] [facility] 08/03/2021 11:28:40 pneumococcal conjugate PCV 7 3 completed [place] [facility] 08/03/2021 11:28:46 pneumococcal conjugate PCV 7 4 completed [place] [facility] 08/03/2021 11:28:52 pneumococcal conjugate PCV 7 4 completed [place] [facility] 08/03/2021 11:29:04 IPV 3 completed [place] [facility] 08/03/2021 11:29:14 IPV 3 completed [place] [facility] 08/03/2021 11:29:21 IPV 5 completed [place] [facility] 08/03/2021 11:29:26 IPV 8 completed [place] [facility] 08/03/2021 11:29:45 Tdap 4 completed [place] [facility] 08/03/2021 11:29:56 varicella 4 completed [place] [facility] 08/03/2021 11:36:02 varicella 8 completed [place] [facility] 08/03/2021 11:36:06 influenza, unspecified formulation 7 completed [place] [facility] 05/06/2024 16:49:25 influenza, split (incl. purified surface antigen) 9 completed [place] [facility] 05/06/2024 16:49:25 influenza, split (incl. purified surface antigen) 8 completed [place] [facility] 05/06/2024 16:49:25 Hep A, pediatric, unspecified formulation 7 completed [place] [facility] 05/06/2024 16:49:25 Hep A, pediatric, unspecified formulation 6 completed FERNANDEZ Son - [facility] 05/06/2024 16:49:25 HPV9 7 completed Not Available [facility] 10/03/2019 02:45:29 Past Encounters Encounter ID Performer Location Encounter Start Date Encounter Closed Date Diagnosis/Indication Diagnosis SNOMED-CT Code Diagnosis ICD10 Code Diagnosis Note [id number] [facility] [address] [place] [address] 05/24/2015 15:20:28 05/24/2015 17:15:27 Pharyngitis 294095623 [id number] [facility] [address] [place] [address] 12/04/2016 14:43:59 12/04/2016 15:23:39 Injury of ribs 142064774 [facility].9XXA [id number] [facility] [address] [place] [address] 04/19/2017 14:03:01 04/19/2017 14:52:05 Adolescent care 652829013 Z00.3 [id number] [facility] [address] [place] [address] 11/27/2018 16:58:52 11/27/2018 17:55:05 Mixed anxiety and depressive disorder 240360595 F41.8 [id number] SONY KRAUSE [facility] [address] [place] [address] 01/18/2021 15:21:20 01/23/2021 12:06:36 Acne 09737826 L70.9 patient has acne covering cheeks and chin. open comedone without signs of scarring or erythema. - benzoyl peroxide - clinda gel - wash reusable masks and or switch mask often - drink plenty of water - cut down on greasy/sug shelia foods Dysmenorrhea 357350473 N 94.6 Patient has heavy and painful periods affecting her work. Denies history of clotting, migraines. Will start OCP. Denies being sexually active. Advised if she were to become sexually active this does not protect against std. disucssed different options for control and pill is fit for her. discussed how to take it and when to start. [id number] SONY KRAUSE [facility] [address] [place] [address] 02/02/2021 15:05:14 02/02/2021 16:49:12 At increased risk of sexually transmitted infection 343611063 Z20.2 patient is sexually active and would like std testing. Dysmenorrhea 083553372 N 94.6 Patient has heavy and painful periods affecting her work. Denies history of clotting, migraines. doing well on OCP. [id number] SONY KRAUSE [facility] [address] [place] [address] 08/03/2021 10:59:42 08/08/2021 08:23:25 Migraine 66798105 G43.909 two weeks of wrosening migraine after trauma to head. Nothing has helped the migraines OTC. She has nausea and vomiting with migraines. She is worried they keep getting worse. Not like past headaches. Recurrent urinary tract infection 407117378 N39.0 Patient continues to have recurrent UTI. Would like to see urology [id number] SONY KRAUSE [facility] [address] [place] [address] 08/17/2021 08:09:35 08/18/2021 08:48:29 Migraine 88723472 G43.909 two weeks of wrosening migraine after trauma to head. Nothing has helped the migraines OTC. She has nausea and vomiting with migraines. She is worried they keep getting worse. Not like past headaches. [id number] SONY KRAUSE [facility] [address] [place] [address] 11/30/2021 14:40:02 12/01/2021 10:22:59 Recurrent urinary tract infection 325199375 N39.0 Patient continues to have recurrent UTI. Would like to see urology - stay hydrated- void before and after sex- proper wiping technique [facility] ion care management 537102129 Z30.9 refill. takes it as prescribed and not missing doses. periods are three days and cramps are improved. Acne 37439432 L70.9 improvemen t on current regiment - benzoyl peroxide - clinda gel - wash reusable masks and or switch mask often - drink plenty of water - cut down on greasy/sug shelia foods Vaginal discharge 520136 006 N89.8 white dishcarge and change in smell after abx (keflex for uti). patient is sexually active with one partner. Denies pelvic pain, change in periods, rash, fever or chills. [id number] SONY KRAUSE [facility] [address] [place] [address] 2022 13:47:02 03/06/2022 09:40:41 Cyst of ovary 84447221 N83.209 Sherri has f/u with [facility] on Saturday03/05/22. - ER if pain worsens to r/o torsion- Continue OCP [id number] SONY KRAUSE [facility] [address] [place] [address] 04/26/2022 14:58:38 05/01/2022 10:44:54 Iron deficiency anemia 89386531 D50.9 - recheck labs- may need hematology - on ocp, periods controlled - increase green leafy veggies, beetz Acute sinusitis [id number] J01.90 sick since april 07. increased headaches, frontal pain, cough >10 days. denies fever or chills. cp. sob. - hydrate and rest - ibuprofen or tylenol for body aches - z logan as prescribed - f/u if not improving or worsening. - ER if trouble breathing, worsening chest pain, 103 fever without improvemen t with NSAID/tyle nol. Polycystic ovary syndrome [id number] E28.2 refill. had cyst removed on april 21 via a planned surgery. doing well today. Obesity [id number] E66.9 bmi 32.4 [id number] SONY KRAUSE [facility] [address] [place] [address] 08/07/2022 14:57:03 08/08/2022 14:00:14 Migraine [id number] G43.909 migraines improvemen t with amitripyli ne. advised taking earlier to avoid somnolence . - PEÑALOZA diary- eye exam- continue medication qhs- f/u 6 months or prn [id number] SONY KRAUSE [facility] [address] [place] [address] 12/31/2022 14:03:36 12/31/2022 14:35:34 Insomnia [id number] G47.00 Discussed sleep hygiene - no tv, electronic s in room- go to bed at same time every night- Avoid eating 1-2 hours before bed- Do no have any caffeine after 3 pm- if unable to sleep she is to leave room and read for 15 minutes. May repeat this multiple times. Goal is not to associate room with anxiety or work Acne [id number] L70.9 improvemen t on current regiment. refills - benzoyl peroxide - clinda gel - wash reusable masks and or switch mask often - drink plenty of water - cut down on greasy/sug shelia foods [id number] SONY KRAUSE [facility] [address] [place] [address] 03/28/2023 10:08:10 03/28/2023 13:32:10 Migraine without aura [id number] G43.009 patient with episodes of dizziness and nausea preceding migraines. was controlled on amitriptyl ine before. Would like to restart. - PEÑALOZA diary- start amitriptyl ine- neurologis t referral [id number] SONY KRAUSE [facility] [address] [place] [address] 04/09/2023 16:09:23 04/09/2023 16:37:48 Obesity [id number] E66.9 bmi 32.4 Patient denies fam hx of thyroid cancer, personal hx pancreatit is. Medication side effects were reviewed with patient and include ALEXY, pancreatit is, nausea, vomiting, stomach upset. Patient was shown pen and was shown how to clean area, inject pen, and how often to administer . did advise healthy dietincrea se veggies and lean proteins [id number] SONY KRAUSE [facility] [address] [place] [address] 06/27/2023 15:40:17 07/01/2023 15:28:42 Upper respiratory infection [id number] J06.9 improving URI. given work note.- hydrate and rest- ibuprofen or tylenol for body aches-coug h drops prn to control cough- f/u if not improving or worsening. - ER if trouble breathing, worsening chest pain, 103 fever without improvemen t with NSAID/tyle nol. [id number] Rosy Floyd [facility] [address] [place] [address] 03/30/2024 16:37:48 04/19/2024 03:47:54 [id number] Teresa Hurley MA [facility] [address] [place] [address] 05/01/2024 13:43:38 05/01/2024 13:56:12 [id number] SONY KRAUSE [facility] [address] [place] [address] 05/06/2024 16:45:54 05/06/2024 17:33:01 Migraine without aura [id number] G43.009 patient with episodes of dizziness and nausea preceding migraines. was controlled on amitriptyl ine before. Would like to restart. - PEÑALOZA diary- re-start amitriptyl ine [id number] Kayleigh Negrete MA [facility] [address] [place] [address] 05/20/2024 14:43:22 05/20/2024 17:30:49 Dysuria [id number] R30.0 Health Concerns Section Related Observation LastModified by Organization Detai ls LastModified Time None Recorded Concern Status LastModified by Organization Details LastModified Time None Recorded Advance Directives Directive None Recorded Payers Encounter Date Sequence Insurance Name Policy Number Policy Wilder Covered Member ID Wilder Member ID Guarantor Name 06/27/2023 1 [employer] - BENEFITS MANAGEMENT [id number] Clement Ruiz [id number] Sherri Ruiz 03/30/2024 1 [facility] [email or web address] BENEFITS MANAGEMENT [id number] Clement Ruiz [id number] Sherri Ruiz 05/01/2024 1 [facility] [email or web address] BENEFITS MANAGEMENT [id number] Clement Ruiz [id number] Sherri Ruiz 05/06/2024 SLIDING FEE SCHEDULE - DISCOUNT Sherri Ruiz 05/20/2024 1 [facility] [email or web address] BENEFITS MANAGEMENT [id number] Clement Ruiz [id number] Sherri Ruiz Notes Date Note Type Note Provider Name and Address Organization Details Recorded Time 06/27/2023 text/html 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 started with sore throat and developed cough and headache/congestion . Has been managing with otc medications. She is feeling better today and needs work-note. She denies fever, vomiting, diarrhea, cp, sob. SONY KRAUSE Attn: [address] [place], [address], [facility] 06/27/2023 21:46:29 05/06/2024 text/html here for headach es would like to restart amitriptyline again. SONY KRAUSE Attn: [address]ing[address] [place], [address], [facility] 05/30/2024 07:33:48 OBGyn Episode No OBEpisode recorded.
--- OUTSIDE RECORDS SUMMARY | 2024-10-21 20:36 | XMS_ITS | Clinical Summary ---
Author Organization [facility] Address [address] [place] [address] Care Team Providers Care Care Professionals Name Role Phone Roel Aragon MD Primary Care Provider Unavail able Source Comments [facility],non-owned Affiliates and Associated Physician Practices is amultiple site organization consisting of ambulatory clinics and hospital sitesin [place], [place], [place] and [place]. This disclosure is being madepursuant to the Care Everywhere program and may not contain all information available regarding this patient. Last updated 18.[facility] [employer] Allergies No known active allergies Medications * [...] Muscle Spasms 20 tablet 2 11/28/2022 Active Family History Medical History Relation Name Comments CAD (Coronary Artery Disease) Father Depression Father Diabetes - Type 2 Father High Cholesterol Father Cancer - Ovarian Mother Depression Mother Relation Name Status Comments Father Mother Social History Tobacco Use Types Packs/Day Years [...] 11/28/2022 1:56 PM CDT Plan of Treatment Health Maintenance Due Date Last Done Comments PAP SMEAR 2003 HIV SCREENING 2018 HPV VACCINE (1 - 3-dose series) 2018 CHLAMYDIA/GONORRHEA SCREENING 2019 MENINGOCOCCAL (Group B) VACCINE (1 of 2 - Standard) 2019 HEPATITIS C SCREENING 02/25/2021 DTAP/TDAP/TD VACCINES (1 - Tdap) 2022 HEPATITIS B VACCINE (1 of 3 - 19+ 3-dose series) 2022 COVID-19 VACCINE (3 2023- season) 2024 11/12/2022, 10/18/2022 INFLUENZA VACCINE (#1) 2024 2, 06/22/2011, 07/01/2009, Additional history exists DEPRESSION SCREENING 09/16/2024 ZOSTER VACCINE (1 of 2) 2053 HIB VACCINE Aged Out No longer eligi ble based on patient's age to complete this topic MENINGOCOCCAL VACCINE Aged Out No ruba shay eligible based on patient's age to complete this topic PNEUMOCOCCAL VACCINE Aged Out No long er eligible based on patient's age to complete this topic Care Teams Care Professionals Relationship Specialty Start Date End Date Roel Aragon MD PCP - General 03/22/22
--- NOTE | 2024-10-21 20:44 | ED_ITS ---
HPI - General Adult General Chief complaint: Nausea/Vomiting/Diarrhea Stated complaint: n/v/d Time Seen by Provider: 10/21/24 20:43 Source: patient Mode of arrival: ambulatory Limitations: no limitations History of Present Illness HPI narrative: 19 years old white female came to the ED from home by private car complaining of nausea, vomiting and diarrhea started early today. Patient reported vomiting a lot, diarrhea lot with nausea. Lately patient started feeling dizzy, and lightheadedness. 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 Patient is healthy otherwise, does not take medicine, does not smoke or drink, use drugs. patient had Tylenol 4 hours prior to arrival to the emergency room Related Data Home Medications ?Medication ?Instructions ?Recorded ?Confirmed ?Last Taken ?Type etonogestrel 68 mg subdermal 1 implant subdermal ONCE 11/08/22 10/21/24 Unknown History implant (Nexplanon) amitriptyline 25 mg tablet 25 mg PO HS 05/22/24 05/22/24 Unknown History Allergies Allergy/AdvReac Type Severity Reaction Status Date / Time No Known Allergies Allergy Verified 10/21/24 21:43 Review of Systems 2 Review of Systems: All systems reviewed & are unremarkable except as noted in HPI and below PMFSH Past Medical History Medical History UTI (urinary tract infection) Anxiety and depression Surgical History Surgical History No pertinent past surgical history Family History Family History Mother Family history non-contributory Other Hypertension Social History Social History Smoking status: Never smoker Alcohol intake: never Substance use: never Substance use type: does not use Living arrangements: with family Occupation/Education: student Gender identity (if verbalized by the patient): Female Spiritual care concerns: No Exam 2 Narrative: General appearance: Well-developed, well-nourished Skin: Normal color Head: Normocephalic, nontraumatic Eyes: Clear conjunctiva ENT: Oropharynx normal, ears normal, nose normal Neck: Supple, nontender Chest and respiratory: Airway patent, no respiratory distress, no accessory muscle use Heart: Regular rate/rhythm Abdomen: Soft, nontender, no organomegaly, quiet bowel sounds Vascular: Normal peripheral pulses, normal capillary refill. Musculoskeletal: Normal range of motion, nontender back Neurologic: Alert and oriented ?3, CONVERTER SUPERVISOR is normal as tested, no gross motor deficit Course Vital Signs Vital signs: Vital Signs Temperature 37.3 C 10/21/24 20:35 Pulse Rate 122 H 10/21/24 20:35 Respiratory Rate 20 10/21/24 20:35 Blood Pressure 134/83 10/21/24 20:35 Pulse Oximetry 97 10/21/24 20:35 Oxygen Delivery Room Air 10/21/24 20:35 Temperature 37.3 C 10/21/24 20:35 Pulse Rate 122 H 10/21/24 20:35 Respiratory Rate 20 10/21/24 20:35 Blood Pressure 134/83 10/21/24 20:35 Pulse Oximetry 97 10/21/24 20:35 Oxygen Delivery Room Air 10/21/24 20:35 Medical Decision Making MDM Narrative Medical decision making narrative: patient presents with symptom of viral gastroenteritis Vital signs showing heart rate of 122 otherwise within normal limit Physical examination showing patient with nausea, holding vomiting bag in hands Differential diagnosis viral infection, dehydration, electrolyte imbalance. Blood workup today includes CBC, CMP showed no acute abnormalities Patient tested negative for COVID, flu and RSV Urinalysis showing microscopic blood, patient is menstruating right now. Patient is able to keep fluids and crackers down prior to discharge. The pt was discharged to home.the pt,s condition upon discharge was fair,education was provided to the pt in reference to the final impression,discharge study results,treatment,prognosis and need for follow up . Differential Diagnosis Differential Diagnosis: As above Vital Signs Vital Signs: Vital Signs Temperature 37.3 C 10/21/24 20:35 Pulse Rate 122 H 10/21/24 20:35 Respiratory Rate 20 10/21/24 20:35 Blood Pressure 134/83 10/21/24 20:35 Pulse Oximetry 97 10/21/24 20:35 Oxygen Delivery Room Air 10/21/24 20:35 Temperature 37.3 C 10/21/24 20:35 Pulse Rate 122 H 10/21/24 20:35 Respiratory Rate 20 10/21/24 20:35 Blood Pressure 134/83 10/21/24 20:35 Pulse Oximetry 97 10/21/24 20:35 Oxygen Delivery Room Air 10/21/24 20:35 Lab Data 10/21/24 20:59 10/21/24 20:59 Labs: Lab Results 10/21/24 10/21/24 Range/Units 20:59 21:27 WBC 10.2 (4.8-10.8) K/mm3 RBC 5.30 (4.20-5.40) M/mm3 Hgb 12.6 (12.0-15.0) g/dL Hct 41.0 (35.0-49.0) % MCV 77.4 L (78.0-102.0) fL MCH 23.8 L (27.0-31.0) pg MCHC 30.7 L (32-36) g/dL RDW 13.5 (11.6-14.4) % Plt Count 323 (150-420) K/mm3 MPV 10.0 (9.2-11.8) fl Immature Gran % (Auto) 0.4 H (0.0-0.0) % Neut % (Auto) 81.9 H (50.0-70.0) % Lymph % (Auto) 10.7 L (18.0-42.0) % Kershaw % (Auto) 6.3 (2.0-11.0) % Eos % (Auto) 0.6 L (1.0-6.0) % Baso % (Auto) 0.1 (0.0-1.0) % Lymph # (Auto) 1.10 (1.10-4.50) K/mm3 Kershaw # (Auto) 0.64 (0.10-0.90) K/mm3 Eos # (Auto) 0.06 (0.02-0.50) K/mm3 Baso # (Auto) 0.01 (0.00-0.10) K/mm3 Abs Immat Gran (auto) 0.04 H (0.00-0.00) K/mm3 Absolute Neuts (auto) 8.39 H (1.70-7.20) K/mm3 Absolute Nucleated RBC 0.00 (0.00-0.00) K/mm3 Nucleated RBC % 0.0 (0-0.0) % Sodium 138 (136-145) mmol/L Potassium 3.9 (3.5-5.1) mmol/L Chloride 102 (98-108) mmol/L Carbon Dioxide 23 (21-32) mmol/L Anion Gap 13 H (4-12) mmol/L BUN 7 (7-18) mg/dL Creatinine 0.78 (0.55-1.02) mg/dL Estim Creat Clear Calc 129 ml/min Estimated GFR > 60 (59 - ) Glucose 104 H (70-99) mg/dL Calculated Osmolality 284 L (285-295) mOsm/kg Calcium 8.7 (8.5-10.1) mg/dL Total Bilirubin 0.7 (0.00-1.00) mg/dL AST 20 (15-37) U/L ALT 32 (14-59) U/L Alkaline Phosphatase 89 (46-116) U/L Total Protein 7.6 (6.4-8.2) g/dL Albumin 3.7 (3.4-5.0) g/dL Lipase 16 (16-77) U/L Urine Color Yellow (Yellow) Urine Appearance Sl cloudy A (Clear) Urine pH 5.5 (5.0-8.0) Ur Specific Grady >= 1.030 H (1.010-1.020) Urine Protein Trace H (Negative) Urine Glucose (UA) Negative (Negative) Urine Ketones 1+ H (Negative) Ur Blood (Man) 3+ H (Negative) Urine Nitrate Negative (Negative) Urine Bilirubin Negative (Negative) Urine Urobilinogen 0.2 (0.2-1.0) mg/dL Leukocyte Esterase Rfl Trace H (Negative) CHELI/UL Urine RBC >75 H (0-2) /hpf Urine WBC 0-3 (0-3) /hpf Ur Squamous Epith Cells Few (Few) /hpf Urine Bacteria Trace (None) /hpf Influenza A (RT-PCR) Negative (Negative) Influenza B (RT-PCR) Negative (Negative) RSV (RT-PCR) Negative (Negative) SARS-CoV-2 RNA (RT-PCR) Negative (Negative) Critical Care Time Critical Care Time Critical Care Time: No Discharge Plan Discharge Clinical Impression: Gastroenteritis Patient Disposition: Home, Self-Care Condition: Stable Instructions: Gastroenteritis (ED) Additional Instructions: Return if symptoms are worsening , call your family physician for appointment, take Tylenol as as needed for aches and pain, encourage fluid intake, continue home medications. Patient Language: Czech Prescriptions: New ondansetron 4 mg tablet,disintegrating 2 mg PO Q4H PRN (Reason: nausea and vomiting) Qty: 10 0RF No Action amitriptyline 25 mg tablet 25 mg PO HS Nexplanon 68 mg Implant 1 implant SUBDERMAL ONCE Rx Instructions: as a single dose Follow-up/Referrals: Bimal,MD Gregg [Primary Care Provider] - Stand Alone Forms: Work/School Release IP
[2024-10-21 21:02] LABS: Basophils Absolute Auto 0.01 K/mm3 (0.00-0.10); Basophils Percent Auto 0.1 % (0.0-1.0); Eosinophils Absolute Auto 0.06 K/mm3 (0.02-0.50); Eosinophils Percent Auto 0.6 % (1.0-6.0); Hemoglobin 12.6 g/dL (12.0-15.0); Immature Granulocyte Absolute 0.04 K/mm3 (0.00-0.00); Immature Granulocyte Percent A 0.4 % (0.0-0.0); Lymphocytes Percent Auto 10.7 % (18.0-42.0); Mean Corpuscular HGB Conc 30.7 g/dL (32-36); Mean Corpuscular Hemoglobin 23.8 pg (27.0-31.0); Mean Corpuscular Volume 77.4 fL (78.0-102.0); Monocytes Absolute Auto 0.64 K/mm3 (0.10-0.90); Monocytes Percent Auto 6.3 % (2.0-11.0); Neutrophils Absolute Auto 8.39 K/mm3 (1.70-7.20); Neutrophils Percent Auto 81.9 % (50.0-70.0); Platelet Count Result 323 K/mm3 (150-420); Red Cell Distribution Width 13.5 % (11.6-14.4); White Blood Count 10.2 K/mm3 (4.8-10.8)
[2024-10-21] MEDS: SODIUM CHLORIDE 0.9% IV 2,000 ML 999 ML IV CONT (21:14)
[2024-10-21] MEDS: ONDANSETRON INJ 4 MG/2 ML VIAL IV PUSH (21:15)
[2024-10-21] MEDS: KETOROLAC 30 MG/ML VIAL (*BKC) IV PUSH (21:15)
--- OUTSIDE RECORDS SUMMARY | 2024-10-21 21:15 | XMS_ITS | Encounter Summary ---
Author Organization [facility] Healthcare Address [address] [place] [address] Care Team Providers Care Keycase Assembler Name Role Phone Darshana Sellers Primary Care Provider + Suman Aparicio MD Unavailable [phone] Encounter Details Date Type Department Care Team (Late st Contact Info) Description 10/21/2024 11:00 AM [facility] Lab [facility] at [address] [address] Iron deficiency anemia, unspecified iron deficiency anemia [...] on file Legal Sex Female 7:31 PM [facility] Gender Identity Not on file Sexual Orientation Not on file documented as of this encounter Plan of Treatment Not on file documented as of this encounter Procedures Procedure Name Priority Date/Time Associated Diagnosis Comments DIFFERENTIAL AUTO Routine 10/21/2024 11: 05 AM [facility] Iron deficiency anemia, unspecified iron deficiency anemia type IRON PROFILE W/ IBC Routine 10/21/2024 1 1:05 AM [facility] Iron deficiency anemia, unspecified iron deficiency anemia type CBC WITH AUTO DIFFERENTIAL Routine 10/21/2024 11:05 AM [facility] Iron deficiency anemia, unspecified iron deficiency anemia type FERRITIN Routine 10/21/2024 11:05 AM [facility] Iron deficiency anemia, unspecified iron deficiency anemia type documented in this encounter Results * (ABNORMAL) Differential, auto (10/21/2024 11:05 AM [facility]) Neutrophil abs 9.5(H) 1.5 - 6.5 K/cumm Comment:Testing performed by : [address] [address] Imm gran abs 0.1 0.0 - 0.1 K/cumm STEVEN Comment:Testing performed by : [address] [address] Lymphocyte abs 1.1 0.8 - 3.3 K/cumm STEVEN Comment:Testing performed by : [address] [address] Monocyte abs 0.7 0.2 - 0.8 K/cumm STEVEN Comment:Testing performed by : [address] [address] Eosinophil abs 0.4 0.0 - 0.5 K/cumm STEVEN Comment:Testing performed by : [address] [address] Basophil abs 0.0 0.0 - 0.1 K/cumm STEVEN Comment:Testing performed by : [address] [address] Neutrophil pct 80.4 % STEVEN Comment: Interpretive Data Percent cell count reference ranges are not reported, since discordance with absolute values may lead to misinterpretation of CBC data. Current Interpretive Data was last revised on 2017. Testing performed by: [address] [address] Imm gran pct 0.4 % [facility] Comment: Interpretive Data Percent cell count reference ranges are not reported, since discordance with absolute values may lead to misinterpretation of CBC data. Current Interpretive Data was last revised on 2017. Testing performed by: [address] [address] Lymphocyte pct 9.7 % [facility] Comment: Interpretive Data Percent cell count reference ranges are not reported, since discordance with absolute values may lead to misinterpretation of CBC data. Current Interpretive Data was last revised on 2017. Testing performed by: [address] [address] Monocyte pct 5.9 % [facility] Comment: Interpretive Data Percent cell count reference ranges are not reported, since discordance with absolute values may lead to misinterpretation of CBC data. Current Interpretive Data was last revised on 2017. Testing performed by: [address] [address] Eosinophil pct 3.4 % [facility] Comment: Interpretive Data Percent cell count reference ranges are not reported, since discordance with absolute values may lead to misinterpretation of CBC data. Current Interpretive Data was last revised on 2017. Testing performed by: [address] [address] Basophil pct 0.2 % [facility] Comment: Interpretive Data Percent cell count reference ranges are not reported, since discordance with absolute values may lead to misinterpretation of CBC data. Current Interpretive Data was last revised on 2017. Testing performed by: [address] [address] Blood 10/21/2024 11:0 5 AM [facility] 10/21/2024 11:07 AM [facility] us Suman Aparicio MD LAB BLOOD ORDERABLES Fi nal Result STEVEN BERNSTEIN [address] [facility] Department [place] [address] * (ABNORMAL) CBC with auto differential (10/21/2024 11:05 AM [facility]) WBC 11.8(H) 3.8 - 9.9 K/cumm Comment:Testing performed by : [address] [address] Hgb 13.0 11.9 - 15.5 g/dL STEVEN Comment:Testing performed by : [address] [address] Hct 41.2 35.6 - 45.5 % STEVEN Comment:Testing performed by : [address] [address] Plt 344 150 - 400 K/cumm STEVEN Comment:Testing performed by : [address] [address] MPV 10.3 9.1 - 12.3 fL STEVEN Comment:Testing performed by : [address] [address] RBC 5.36(H) 3.90 - 5.20 M/cumm STEVEN Comment:Testing performed by : [address] [address] MCV 76.9(L) 81.3 - 96.4 fL STEVEN Comment:Testing performed by : [address] [address] MCH 24.3(L) 27.1 - 33.3 pg STEVEN Comment:Testing performed by : [address] [address] MCHC 31.6(L) 32.3 - 35.7 g/dL STEVEN Comment:Testing performed by : [address] [address] RDW CV 13.7 11.1 - 14.9 % STEVEN Comment:Testing performed by : [address] [address] RDW SD 37.8 35.7 - 48.1 fL STEVEN Comment:Testing performed by : [address] [address] NRBC abs 0.00 0.00 - 0.01 K/cumm STEVEN Comment:Testing performed by : [address] [place]., [address] Blood 10/21/2024 11:0 5 AM [facility] 10/21/2024 11:07 AM [facility] Suman Aparicio MD LAB BLOOD ORDERABLES Fi nal Result Performing Organization Address [facility] Co de Phone Number [address] [employer] [place] [address] * (ABNORMAL) Ferritin (10/21/2024 11:05 AM [facility]) Ferritin 14(L) 15 - 150 ng/mL Comment:Testing performed by : [address] [address] Blood 10/21/2024 11:0 5 AM [facility] 10/21/2024 11:47 AM [facility] Suman Aparicio MD LAB BLOOD ORDERABLES Fi nal Result Performing Organization Address [facility] de Phone Number [address] [employer] [place] [address] * (ABNORMAL) Iron profile w/ IBC (10/21/2024 11:05 AM [facility]) Iron 24(L) 35 - 145 mcg/dL Comment:Testing performed by : [address] [address] TIBC 368 250 - 400 mcg/dL STEVEN Comment:Testing performed by : [address] [address] Transferrin saturation 7(L) 20 - 50 % STEVEN Comment:Testing performed by : [address] [address] Blood 10/21/2024 11:0 5 AM [facility] 10/21/2024 11:47 AM [facility] Suman Aparicio MD LAB BLOOD ORDERABLES Fi nal Result Performing Organization Address [facility] Co de Phone Number [address] [employer] [place] [address] documented in this encounter Visit Diagnoses Diagnosis Iron deficiency anemia, unspecified iron deficiency anemia type documented in this encounter Care Teams Keycase Assembler Relationship Specialty Start Date End Date Darshana Sellers PA PCP - General Physician Senior Underwriting Assistant 02/14/22 Suman Aparicio MD [address] [place] [address] MEDICAL ONCOLOGY, [address] [address] Medical Oncologist/Assistant Professor Of English Hematology and Oncology 10/12/24 documented as of this encounter
--- OUTSIDE RECORDS SUMMARY | 2024-10-21 21:15 | XMS_ITS | Clinical Summary ---
Author Organization [facility] Address [address] [place] [address] Care Team Providers Care Bone Crusher Name Role Phone Roel Aragon MD Primary Care Provider Unavail able Source Comments [facility],non-owned Affiliates and Associated Physician Practices is amultiple site organization consisting of ambulatory clinics and hospital sitesin [place], [place], [place] and [place]. This disclosure is being madepursuant to the Care Everywhere program and may not contain all information available regarding this patient. Last updated 18.[facility] Applyful Allergies No known active allergies Medications * [...] age to complete this topic Care Teams Bone Crusher Relationship Specialty Start Date End Date Roel Aragon MD PCP - General 03/22/22
--- OUTSIDE RECORDS SUMMARY | 2024-10-21 21:15 | XMS_ITS | Referral Summary ---
Author Organization [facility] Address [address] [facility] [place] [address] Care Team Providers Care Supervisor Filter Assembly Name Role Phone Roel Aragon MD Primary Care Provider Unavail able Source Comments [facility],non-owned Affiliates and Associated Physician Practices is amultiple site organization consisting of ambulatory clinics and hospital sitesin [place], [place], [place] and [place]. This disclosure is being madepursuant to the Care Everywhere program and may not contain all information available regarding this patient. Last updated 18.[facility] Attendify Allergies No known active allergies Medications * [...] of Treatment Not on file Care Teams Supervisor Filter Assembly Relationship Specialty Start Date End Date Roel Aragon MD PCP - General 03/22/22
--- OUTSIDE RECORDS SUMMARY | 2024-10-21 21:15 | XMS_ITS | Patient Health Summary ---
Author Organization [facility] Address [address] [facility] [place] [address] Care Team Providers Care Dusting And Brushing Machine Operator Name Role Phone Roel Aragon MD Primary Care Provider Unavail able Note from [facility],non-owned Affiliates and Associated Physician Practices is amultiple site organization consisting of ambulatory clinics and hospital sitesin [place], [place], [place] and [place]. This disclosure is being madepursuant to the Care Everywhere program and may not contain all information available regarding this patient. Last updated 18.[facility] Allergies No known active allergies Medications * [...] Jazz(A) Straw, Yellow 04/03/2018 2:38 AM CDT [facility] Clarity UA Cloudy(A) Clear 04/03/2018 2:38 AM [facility] Glucose UA Negative Negative 04/03/2018 2:38 AM [facility] Bilirubin UA Negative Negative 04/03/2018 2:38 AM [facility] Ketone UA Trace(A) Negative 04/03/2018 2:38 AM [facility] Specific [place] UA 1.025 1.005 - 1.030 04/03/2018 2:38 AM [facility] Blood UA 3+(A) Negative 04/03/2018 2:38 AM [facility] pH UA 5.0 5.0 - 8.0 pH 04/03/2018 2:38 AM [facility] Protein UA 1+(A) Negative 04/03/2018 2:38 AM [facility] Urobilinogen UA 4.0(A) Negative mg/dL 04/03/2018 2:38 AM [facility] Nitrite UA Negative Negative 04/03/2018 2:38 AM [facility] Leukocyte UA Trace(A) Negative 04/03/2018 2:38 AM [facility] RBC UA >100(A) None Seen, 0-5 # /hpf 04/03/2018 2:38 AM [facility] WBC UA 21-50(A) None Seen, 0-5 # /hpf 04/03/2018 2:38 AM [facility] WBC Clumps UA Many(A) None Seen /HPF 04/03/2018 2:38 AM [facility] Bacteria UA 2+(A) None Seen 04/03/2018 2:38 AM [facility] Squamous Epithelial Cells 6-10(A) None Seen, 0-2, 3-5 /hpf 04/03/2018 2:38 AM [facility] Mucus UA 4+ /LPF 04/03/2018 2:38 AM [facility] Budding Yeast Many(A) None seen /hpf 04/03/2018 2:38 AM [facility] Reflex Status Culture to follow 04/03/2018 2:38 AM [facility] Urine URINE SPECIMEN OBTAINED BY CLEAN CATCH PROCEDURE / Unknown Collection / Unknown 04/03/2018 2:31 AM T 04/03/2018 2:31 AM CDT Narrative [facility] - 04/03/2018 2:38 AM CDT Lionel Goldstein Archiejoce LAB - URINALYSIS ORD ERABLES Performing Organization Address [facility] Co de Phone Number [facility] [address] [place] [address] * HCG URINE QUALITATIVE (04/03/2018 2:31 AM CDT) hCG Qualitative Urine Negative Negative 04/03/2018 2:36 AM CDT [facility] Urine URINE / Unknown Collection / Unknown 04/03/2018 2:31 AM CDT 04/03/2018 2:31 AM CDT Lionel Zimmerman LAB - URINALYSIS ORD ERABLES Performing Organization Address [facility] de Phone Number [facility] [address] [place] [address] * CULTURE URINE (04/03/2018 2:31 AM CDT) Culture Urine <10,000 CFU/mL urogenital payal DAVID 04/04/2018 3:24 PM CDT [facility] Urine URINE SPECIMEN OBTAINED BY CLEAN CATCH PROCEDURE / Unknown Collection / Unknown 04/03/2018 2:31 AM CDT 04/03/2018 2:31 AM CDT Lionel Zimmerman DO LAB - MICROBIOLOGY O RDERABLES Performing Organization Address [facility] Co de Phone Number [facility] [address] [place] [address] [phone] * HCG URINE QUAL POCT NOTIFICATION (04/03/2018 12:24 AM CDT) Comment Notification Label Only - See Separate Report 04/03/2018 2:01 AM CDT [facility] Urine URINE / Unknown 04/03/2018 1 2:24 AM CDT 04/03/2018 12:24 AM CDT Lionel Zimmerman DO LAB - URINALYSIS ORD ERABLES [facility] [address] [facility] [place] [address] Care Teams Dusting And Brushing Machine Operator Relationship Specialty Start Date End Date Roel Aragon MD PCP - General 03/22/22
--- OUTSIDE RECORDS SUMMARY | 2024-10-21 21:16 | XMS_ITS | Referral Summary ---
Author Organization [facility] Address [address] [place] [address] Care Team Providers Care Clothing Pattern Preparer Name Role Phone Darshana Sellers Primary Care Provider + Suman Aparicio MD Unavailable [phone] Encounters Date Type Department Care Team Description 10/21/2024 11:00 AM EDUCATIONAL PARAPROFESSIONAL Lab [facility] at [address] [id number] Iron deficiency anemia, unspecified iron deficiency anemia type 10/21/2024 11:30 AM EDUCATIONAL PARAPROFESSIONAL Office Visit [facility] Oncology [address] [place] [address] [address] [place] [phone] Suman Aparicio MD Iron deficiency anemia, unspecified iron deficiency anemia type (Primary Dx) 08/26/2024 Telephone [facility] Oncology [address] [place] [address] [address] [place] [address] Faye Mix 08/26/2024 Orders Only [facility]cology [address] [place] [address] [address] [place] [address] Jayshree Duke, LORENA Iron deficiency anemia, unspecified iron deficiency anemia type (Primary Dx) 08/25/2024 Telephone [facility] Oncology [address] [place] [address] [address] [place] [address] Jayshree Duke, RN from Last [...] on file Legal Sex Female 7:31 PM EDUCATIONAL PARAPROFESSIONAL Gender Identity Not on file Sexual Orientation Not on file Last Filed Vital Signs Vital Sign Reading Time Taken Comments Blood Pressure 104/71 10/21/2024 11:14 AM EDUCATIONAL PARAPROFESSIONAL Pulse 66 10/21/2024 11:14 AM EDUCATIONAL PARAPROFESSIONAL Temperature 37.1 C (98.8 F) 10/21/2024 11:14 AM EDUCATIONAL PARAPROFESSIONAL Respiratory Rate 18 10/21/2024 11:1 4 AM EDUCATIONAL PARAPROFESSIONAL Oxygen Saturation 98% 10/21/2024 11: 14 AM EDUCATIONAL PARAPROFESSIONAL Inhaled Oxygen Concentration - - Weight 116.1 kg (256 lb) 10/21/2024 11: 14 AM EDUCATIONAL PARAPROFESSIONAL Height 171.5 cm (5' 7.5 ) 10/21/2024 11 :14 AM EDUCATIONAL PARAPROFESSIONAL pt refused to remove shoes Body Mass Index 39.5 10/21/2024 11:14 AM EDUCATIONAL PARAPROFESSIONAL Plan of Treatment Not on file Procedures Procedure Name Priority Date/Time Associated Diagnosis Comments DIFFERENTIAL AUTO Routine 10/21/2024 11: 05 AM EDUCATIONAL PARAPROFESSIONAL Iron deficiency anemia, unspecified iron deficiency anemia type CBC WITH AUTO DIFFERENTIAL Routine 10/21/2024 11:05 AM EDUCATIONAL PARAPROFESSIONAL Iron deficiency anemia, unspecified iron deficiency anemia type FERRITIN Routine 10/21/2024 11:05 AM EDUCATIONAL PARAPROFESSIONAL Iron deficiency anemia, unspecified iron deficiency anemia type IRON PROFILE W/ IBC Routine 10/21/2024 1 1:05 AM EDUCATIONAL PARAPROFESSIONAL Iron deficiency anemia, unspecified iron deficiency anemia type from Last 3 Months Results * (ABNORMAL) Differential, auto (10/21/2024 11:05 AM EDUCATIONAL PARAPROFESSIONAL) Neutrophil abs 9.5(H) 1.5 - 6.5 K/cumm Comment:Testing performed by : [address] [address] Imm gran abs 0.1 0.0 - 0.1 K/cumm STEVEN Comment:Testing performed by : [address] [address] Lymphocyte abs 1.1 0.8 - 3.3 K/cumm STEVEN Comment:Testing performed by : [address] [address] Monocyte abs 0.7 0.2 - 0.8 K/cumm STEVEN Comment:Testing performed by : [address] [address] Eosinophil abs 0.4 0.0 - 0.5 K/cumm STEVEN Comment:Testing performed by : [address] [address] Basophil abs 0.0 0.0 - 0.1 K/cumm STEVEN Comment:Testing performed by : [address] [address] Neutrophil pct 80.4 % [facility] Comment: Interpretive Data Percent cell count reference ranges are not reported, since discordance with absolute values may lead to misinterpretation of CBC data. Current Interpretive Data was last revised on 2017. Testing performed by: [address] [address] Imm gran pct 0.4 % [facility] Comment: Interpretive Data Percent cell count reference ranges are not reported, since discordance with absolute values may lead to misinterpretation of CBC data. Current Interpretive Data was last revised on 2017. Testing performed by: [address] [address] Lymphocyte pct 9.7 % [facility] Comment: Interpretive Data Percent cell count reference ranges are not reported, since discordance with absolute values may lead to misinterpretation of CBC data. Current Interpretive Data was last revised on 2017. Testing performed by: [address] [address] Monocyte pct 5.9 % STEVEN Comment: Interpretive Data Percent cell count reference ranges are not reported, since discordance with absolute values may lead to misinterpretation of CBC data. Current Interpretive Data was last revised on 2017. Testing performed by: [address] [address] Eosinophil pct 3.4 % [facility] Comment: Interpretive Data Percent cell count reference ranges are not reported, since discordance with absolute values may lead to misinterpretation of CBC data. Current Interpretive Data was last revised on 2017. Testing performed by: [address] [address] Basophil pct 0.2 % [facility] Comment: Interpretive Data Percent cell count reference ranges are not reported, since discordance with absolute values may lead to misinterpretation of CBC data. Current Interpretive Data was last revised on 2017. Testing performed by: [address] [address] Blood 10/21/2024 11:0 5 AM EDUCATIONAL PARAPROFESSIONAL 10/21/2024 11:07 AM EDUCATIONAL PARAPROFESSIONAL Suman Aparicio MD LAB BLOOD ORDERABLES Fi nal Result STEVEN [address] [facility] Department of Laboratories [place], [place] [id number] * (ABNORMAL) Iron profile w/ IBC (10/21/2024 11:05 AM EDUCATIONAL PARAPROFESSIONAL) [facility] Signature Iron 24(L) 35 - 145 mcg/dL Comment:Testing performed by : [address] [address] TIBC 368 250 - 400 mcg/dL STEVEN Comment:Testing performed by : [address] [address] Transferrin saturation 7(L) 20 - 50 % STEVEN Comment:Testing performed by : [address] [address] Blood 10/21/2024 11:0 5 AM EDUCATIONAL PARAPROFESSIONAL 10/21/2024 11:47 AM EDUCATIONAL PARAPROFESSIONAL Suman Aparicio MD LAB BLOOD ORDERABLES Fi nal Result [facility] [address] [facility] Department [place] [address] * (ABNORMAL) CBC with auto differential (10/21/2024 11:05 AM EDUCATIONAL PARAPROFESSIONAL) WBC 11.8(H) 3.8 - 9.9 K/cumm Comment:Testing performed by : [address] [address] Hgb 13.0 11.9 - 15.5 g/dL STEVEN Comment:Testing performed by : [address] [address] Hct 41.2 35.6 - 45.5 % STEVEN Comment:Testing performed by : [address] [address] Plt 344 150 - 400 K/cumm STEVEN Comment:Testing performed by : [address] [address] MPV 10.3 9.1 - 12.3 fL STEVEN Comment:Testing performed by : [address] [address] RBC 5.36(H) 3.90 - 5.20 M/cumm STEVEN Comment:Testing performed by : [address] [address] MCV 76.9(L) 81.3 - 96.4 fL STEVEN BERNSTEIN Comment:Testing performed by : [address] [address] MCH 24.3(L) 27.1 - 33.3 pg STEVEN BERNSTEIN Comment:Testing performed by : [address] [address] MCHC 31.6(L) 32.3 - 35.7 g/dL STEVEN Comment:Testing performed by : [address] [address] RDW CV 13.7 11.1 - 14.9 % STEVEN Comment:Testing performed by : [address], [address] RDW SD 37.8 35.7 - 48.1 fL STEVEN Comment:Testing performed by : [address] [address] NRBC abs 0.00 0.00 - 0.01 K/cumm STEVEN Comment:Testing performed by : [address], [address] Blood 10/21/2024 11:0 5 AM EDUCATIONAL PARAPROFESSIONAL 10/21/2024 11:07 AM EDUCATIONAL PARAPROFESSIONAL us Suman Aparicio MD LAB BLOOD ORDERABLES Fi nal Result Performing Organization Address City/[facility] Co de Phone Number [facility] [address] [facility] [place] [address] * (ABNORMAL) Ferritin (10/21/2024 11:05 AM EDUCATIONAL PARAPROFESSIONAL) Ferritin 14(L) 15 - 150 ng/mL Comment:Testing performed by : [address], [address] Blood 10/21/2024 11:0 5 AM EDUCATIONAL PARAPROFESSIONAL 10/21/2024 11:47 AM EDUCATIONAL PARAPROFESSIONAL Suman Aparicio MD LAB BLOOD ORDERABLES Fi nal Result Performing Organization Address City/[facility] Co de Phone Number [facility] [address] [facility] [place] [address] from Last 3 Months Insurance [facility] [place] [address] [facility] [employer] Care Teams Clothing Pattern Preparer Relationship Specialty Start Date End Date Darshana Sellers PA PCP - General Physician Clinical Sociologist 02/14/22 Suman Aparicio MD [address] [facility], [address] [address] Medical Oncologist/Retort Loader Hematology and Oncology 10/12/24
--- OUTSIDE RECORDS SUMMARY | 2024-10-21 21:16 | XMS_ITS | Clinical Summary ---
Author Organization [facility] Address [address] [place] [address] Care Team Providers Care Machine Bookkeeper Name Role Phone Darshana Sellers Primary Care Provider + Suman Aparicio MD Unavailable [phone] Allergies No known active allergies Medications ibuprofen [...] Department Care Team Description 10/21/2024 11:30 AM BENCH SHEAR OPERATOR Office Visit [facility] Physicians [facility] Oncology [address] [place] [address] [address] [place] [address] Suman Aparicio MD Iron deficiency anemia, unspecified iron deficiency anemia type (Primary Dx) 10/21/2024 11:00 AM BENCH SHEAR OPERATOR Lab [facility] [address] [place] [address] Iron deficiency anemia, unspecified iron deficiency anemia type 08/26/2024 Telephone [facility] Oncology [address] [place] [phone] Faye Mix 08/26/2024 Orders Only [facility] Oncology [address] [place] [phone] Jayshree Duke RN Iron deficiency anemia, unspecified iron deficiency anemia type (Primary Dx) 08/25/2024 Telephone [facility] Oncology [address] [place] [phone] Jayshree Duke, LORENA from Last 3 [...] on file Legal Sex Female 7:31 PM BENCH SHEAR OPERATOR Gender Identity Not on file Sexual Orientation Not on file Obstetrics History Last Filed Vital Signs Vital Sign Reading Time Taken Comments Blood Pressure 104/71 10/21/2024 11:14 AM BENCH SHEAR OPERATOR Pulse 66 10/21/2024 11:14 AM BENCH SHEAR OPERATOR Temperature 37.1 C (98.8 F) 10/21/2024 11:14 AM BENCH SHEAR OPERATOR Respiratory Rate 18 10/21/2024 11:1 4 AM BENCH SHEAR OPERATOR Oxygen Saturation 98% 10/21/2024 11: 14 AM BENCH SHEAR OPERATOR Inhaled Oxygen Concentration - - Weight 116.1 kg (256 lb) 10/21/2024 11: 14 AM BENCH SHEAR OPERATOR Height 171.5 cm (5' 7.5 ) 10/21/2024 11 :14 AM BENCH SHEAR OPERATOR pt refused to remove shoes Body Mass Index 39.5 10/21/2024 11:14 AM BENCH SHEAR OPERATOR Plan of Treatment Health Maintenance Due Date [...] DIFFERENTIAL AUTO Routine 10/21/2024 11: 05 AM BENCH SHEAR OPERATOR Iron deficiency anemia, unspecified iron deficiency anemia type CBC WITH AUTO DIFFERENTIAL Routine 10/21/2024 11:05 AM BENCH SHEAR OPERATOR Iron deficiency anemia, unspecified iron deficiency anemia type FERRITIN Routine 10/21/2024 11:05 AM BENCH SHEAR OPERATOR Iron deficiency anemia, unspecified iron deficiency anemia type IRON PROFILE W/ IBC Routine 10/21/2024 1 1:05 AM BENCH SHEAR OPERATOR Iron deficiency anemia, unspecified iron deficiency anemia type from Last 3 Months Results * (ABNORMAL) Differential, auto (10/21/2024 11:05 AM BENCH SHEAR OPERATOR) Neutrophil abs 9.5(H) 1.5 - 6.5 K/cumm Comment:Testing performed by : [facility], [address] [place] [address]., [address] Imm gran abs 0.1 0.0 - 0.1 K/cumm STEVEN BERNSTEIN Comment:Testing performed by : [address] [address] Lymphocyte abs 1.1 0.8 - 3.3 K/cumm [facility] Comment:Testing performed by : [address] [address] Monocyte abs 0.7 0.2 - 0.8 K/cumm [facility] Comment:Testing performed by : [address], [place]., [address] Eosinophil abs 0.4 0.0 - 0.5 K/cumm [facility] Comment:Testing performed by : [address], [place]., [address] Basophil abs 0.0 0.0 - 0.1 K/cumm [facility] Comment:Testing performed by : [address] [address] Neutrophil pct 80.4 % [facility] Comment: Interpretive Data Percent cell count reference ranges are not reported, since discordance with absolute values may lead to misinterpretation of CBC data. Current Interpretive Data was last revised on 2017. Testing performed by: [address] [address] Imm gran pct 0.4 % [facility] Comment: Interpretive Data Percent cell count reference ranges are not reported, since discordance with absolute values may lead to misinterpretation of CBC data. Current Interpretive Data was last revised on 2017. Testing performed by: [address] [address] Lymphocyte pct 9.7 % [facility] Comment: Interpretive Data Percent cell count reference ranges are not reported, since discordance with absolute values may lead to misinterpretation of CBC data. Current Interpretive Data was last revised on 2017. Testing performed by: [address] [address] Monocyte pct 5.9 % [facility] Comment: Interpretive Data Percent cell count reference ranges are not reported, since discordance with absolute values may lead to misinterpretation of CBC data. Current Interpretive Data was last revised on 2017. Testing performed by: [address] [address] Eosinophil pct 3.4 % [facility] Comment: Interpretive Data Percent cell count reference ranges are not reported, since discordance with absolute values may lead to misinterpretation of CBC data. Current Interpretive Data was last revised on 2017. Testing performed by: [address] [address] Basophil pct 0.2 % STEVEN BERNSTEIN Comment: Interpretive Data Percent cell count reference ranges are not reported, since discordance with absolute values may lead to misinterpretation of CBC data. Current Interpretive Data was last revised on 2017. Testing performed by: [address] [address] Blood 10/21/2024 11:0 5 AM BENCH SHEAR OPERATOR 10/21/2024 11:07 AM BENCH SHEAR OPERATOR Suman Aparicio MD LAB BLOOD ORDERABLES Fi nal Result Performing Organization Address [facility] Co de Phone Number [address] [place] [address] * (ABNORMAL) Iron profile w/ IBC (10/21/2024 11:05 AM BENCH SHEAR OPERATOR) Iron 24(L) 35 - 145 mcg/dL Comment:Testing performed by : [address] [address] TIBC 368 250 - 400 mcg/dL STEVEN BERNSTEIN Comment:Testing performed by : [address] [address] Transferrin saturation 7(L) 20 - 50 % STEVEN BERNSTEIN Comment:Testing performed by : [address] [address] Blood 10/21/2024 11:0 5 AM BENCH SHEAR OPERATOR 10/21/2024 11:47 AM BENCH SHEAR OPERATOR uSman Aparicio MD LAB BLOOD ORDERABLES Fi nal Result Performing Organization Address [facility] Co de Phone Number [address] [place] [address] * (ABNORMAL) CBC with auto differential (10/21/2024 11:05 AM BENCH SHEAR OPERATOR) WBC 11.8(H) 3.8 - 9.9 K/cumm Comment:Testing performed by : [address], [address] Hgb 13.0 11.9 - 15.5 g/dL STEVEN Comment:Testing performed by : [address] [address] Hct 41.2 35.6 - 45.5 % STEVEN Comment:Testing performed by : [address] [address] Plt 344 150 - 400 K/cumm STEVEN Comment:Testing performed by : [address] [address] MPV 10.3 9.1 - 12.3 fL STEVEN Comment:Testing performed by : [address] [address] RBC 5.36(H) 3.90 - 5.20 M/cumm STEVEN Comment:Testing performed by : [address] [address] MCV 76.9(L) 81.3 - 96.4 fL STEVEN Comment:Testing performed by : [address] [address] MCH 24.3(L) 27.1 - 33.3 pg STEVEN Comment:Testing performed by : [address] [address] MCHC 31.6(L) 32.3 - 35.7 g/dL STEVEN Comment:Testing performed by : [address], [address] RDW CV 13.7 11.1 - 14.9 % STEVEN Comment:Testing performed by : [address], [address] RDW SD 37.8 35.7 - 48.1 fL STEVEN Comment:Testing performed by : [address] [address] NRBC abs 0.00 0.00 - 0.01 K/cumm STEVEN Comment:Testing performed by : [address] [address] Blood 10/21/2024 11:0 5 AM BENCH SHEAR OPERATOR 10/21/2024 11:07 AM BENCH SHEAR OPERATOR Suman Aparicio MD LAB BLOOD ORDERABLES Fi nal Result Performing Organization Address [facility] de Phone Number MAIDA[address] [address] * (ABNORMAL) Ferritin (10/21/2024 11:05 AM BENCH SHEAR OPERATOR) Ferritin 14(L) 15 - 150 ng/mL Comment:Testing performed by : [address] [address] Blood 10/21/2024 11:0 5 AM BENCH SHEAR OPERATOR 10/21/2024 11:47 AM BENCH SHEAR OPERATOR Suman Aparicio MD LAB BLOOD ORDERABLES Fi nal Result Performing Organization Address [facility] de Phone Number MAIDA[address] [address] from Last 3 Months Insurance [facility] H[facility]/PPO Address: [facility] [id number] [place] [phone] [facility] Care Teams Machine Bookkeeper Relationship Specialty Start Date End Date Darshana Sellers PA PCP - General Physician Stripper And Printer 02/14/22 Suman Aparicio MD [facility], [facility] [address] [place] [address] Medical Oncologist/Physical Therapist Hematology and Oncology 10/12/24
--- OUTSIDE RECORDS SUMMARY | 2024-10-21 21:16 | XMS_ITS | Encounter Summary ---
Author Organization [facility] Address [address] [place] [address] Phone Care Team Providers Care Waterproofing Supervisor Name Role Phone Darshana Sellers Primary Care Provider + Suman Aparicio MD Unavailable [phone] Reason for Visit * Consultation (Routine) - Authorized Specialty Diagnoses / Procedures Referred By Contac t Referred To Contact Oncology Diagnoses Iron deficiency anemia, unspecified iron deficiency anemia type Suman Aparicio MD [address] [place] [address] Phone: tel: fax: [facility] Oncology [address] [place] [address] [place] [address] Phone: tel: fax: Referral ID Status Reason Start Date Expiration Date Visits Requested Visits Authorized [id number] Authorized Specialty Services Required 10/14/2024 11/13/2025 99 99 Encounter Details Date Type Department Care Team (Late st Contact Info) Description 10/21/2024 11:30 AM BACKUP OPERATOR Office Visit [facility] Oncology [address] [place] [address] [address] [place] [address] Suman Aparicio MD [address] [place] [address] Iron deficiency anemia, unspecified iron deficiency anemia [...] on file Legal Sex Female 7:31 PM BACKUP OPERATOR Gender Identity Not on file Sexual Orientation Not on file documented as of this encounter Last Filed Vital Signs Vital Sign Reading Time Taken Comments Blood Pressure 104/71 10/21/2024 11:14 AM BACKUP OPERATOR Pulse 66 10/21/2024 11:14 AM BACKUP OPERATOR Temperature 37.1 C (98.8 F) 10/21/2024 11:14 AM BACKUP OPERATOR Respiratory Rate 18 10/21/2024 11:1 4 AM BACKUP OPERATOR Oxygen Saturation 98% 10/21/2024 11: 14 AM BACKUP OPERATOR Inhaled Oxygen Concentration - - Weight 116.1 kg (256 lb) 10/21/2024 11: 14 AM BACKUP OPERATOR Height 171.5 cm (5' 7.5 ) 10/21/2024 11 :14 AM BACKUP OPERATOR pt refused to remove shoes Body Mass Index 39.5 10/21/2024 11:14 AM BACKUP OPERATOR documented in this encounter Progress Notes * [...] any separately reportable services. Dr. Suman Aparicio [facility] Hematology Department UP OPERATOR documented in this encounter Miscellaneous Notes * Addendum Note - Ricco Irizarry RN - 10/21/2024 11:30 AM CSTAddended by: RICCO IRIZARRY on: 10/21/2024 01:35 PM Modules accepted: Orders UP OPERATOR documented in this encounter Plan of Treatment [...] 10/21/2024 documented in this encounter Care Teams Waterproofing Supervisor Relationship Specialty Start Date End Date Darshana Sellers PA PCP - General Physician Honing Machine Operator Tool 02/14/22 Suman Aparicio MD [address] [facility], [facility] [address] [place] [address] Medical Oncologist/O And M Supervisor Hematology and Oncology 10/12/24 documented as of this encounter
[2024-10-21 21:17] LABS: Alanine Aminotransferase 32 U/L (14-59); Albumin Level 3.7 g/dL (3.4-5.0); Alkaline Phosphatase 89 U/L (46-116); Anion Gap 13 mmol/L (4-12); Aspartate Amino Transferase 20 U/L (15-37); Bilirubin,Total 0.7 mg/dL (0.00-1.00); Blood Urea Nitrogen 7 mg/dL (7-18); Calcium 8.7 mg/dL (8.5-10.1); Carbon Dioxide 23 mmol/L (21-32); Chloride 102 mmol/L (98-108); Estimated CRCL calculation 129 ml/min; Estimated Glomerular Filt Rate > 60; Glucose 104 mg/dL (70-99); Lipase 16 U/L (16-77); Osmolality Calculated 284 mOsm/kg (285-295); Potassium 3.9 mmol/L (3.5-5.1); Sodium 138 mmol/L (136-145); Total Protein 7.6 g/dL (6.4-8.2)
--- NOTE | 2024-10-21 21:19 | PC.NURSE ---
pt ambulated to bathroom for urine specimen
[2024-10-21 21:30] LABS: Add Urine Microscopic? YES; Appearance Urine Sl Cloudy (Clear); Bilirubin Urine Negative (Negative); Blood Urine 3+ (Negative); Color Urine Yellow (Yellow); Glucose Urine UA Negative (Negative); Ketones Urine 1+ (Negative); Leukocyte Esterase Ur Trace LEU/UL (Negative); Nitrate Urine Negative (Negative); Protein Urine Trace (Negative); Specific Grav Ur >= 1.030 (1.010-1.020); Urobilinogen Urine 0.2 mg/dL (0.2-1.0); pH Urine 5.5 (5.0-8.0)
[2024-10-21 21:36] LABS: Bacteria Urine Trace /hpf; RBC Urine >75 /hpf (0-2); Squamous Epithelial Cell Urine Few /hpf (Few); WBC Urine 0-3 /hpf (0-3)
[2024-10-21 21:39] LABS: SARS-CoV-2 RNA PCR Negative (Negative)
[2024-10-21 21:42] LABS: Influenza A QL RT-PCR Negative (Negative); Influenza B QL RT-PCR Negative (Negative); RSV RNA, RT-PCR Negative (Negative)
--- NOTE | 2024-10-21 21:59 | PC.NURSE ---
patient given PO challenge at this time. ERP speaking with patient regarding results and plan.
[2024-10-21 22:20] VITALS: BP 133/65; PULSE 84; RESP 18; TEMP 37.1; O2SAT 98
--- NOTE | 2024-10-21 22:20 | PC.NURSE ---
patient updated again by ERP. tolerated PO intake without emesis. no emesis during stay witnessed by RN. ivf infusing. vss. call light within reach.
== END 2024-10-21 23:25 | disposition home or self-care (01) ==
PROVIDERS: Emergency Provider Emergency Medicine; PCP Internal Medicine
DX: K52.9 Noninfective gastroenteritis and colitis, unspecified (principal); Z20.822 Contact with and (suspected) exposure to COVID-19
CPT/HCPCS: 36415; 80053; 81001; 83690; 85025; 87637; 96361; 96374; 96375; 99284; J1885; J2405; J7030

== ENCOUNTER 2025-01-20 11:03 | Outpatient (CLI) | payer OTHER, SELFPAY ==
[2025-01-20 11:29] LABS: Basophils Absolute Auto 0.03 K/mm3 (0.00-0.10); Basophils Percent Auto 0.3 % (0.0-1.0); Eosinophils Absolute Auto 0.31 K/mm3 (0.02-0.50); Eosinophils Percent Auto 3.5 % (1.0-6.0); Hematocrit 41.7 % (35.0-49.0); Hemoglobin 13.5 g/dL (12.0-15.0); Immature Granulocyte Absolute 0.02 K/mm3 (0.00-0.00); Immature Granulocyte Percent A 0.2 % (0.0-0.0); Lymphocytes Absolute Auto 2.76 K/mm3 (1.10-4.50); Lymphocytes Percent Auto 31.5 % (18.0-42.0); Mean Corpuscular HGB Conc 32.4 g/dL (32-36); Mean Corpuscular Hemoglobin 26.3 pg (27.0-31.0); Mean Corpuscular Volume 81.1 fL (78.0-102.0); Mean Platelet Volume 10.2 fl (9.2-11.8); Monocytes Absolute Auto 0.64 K/mm3 (0.10-0.90); Monocytes Percent Auto 7.3 % (2.0-11.0); Neutrophils Absolute Auto 4.99 K/mm3 (1.70-7.20); Neutrophils Percent Auto 57.2 % (50.0-70.0); Platelet Count Result 340 K/mm3 (150-420); Red Blood Count 5.14 M/mm3 (4.20-5.40); Red Cell Distribution Width 16.3 % (11.6-14.4); White Blood Count 8.8 K/mm3 (4.8-10.8)
--- OUTSIDE RECORDS SUMMARY | 2025-01-20 11:54 | XMS_ITS | Data Portability ---
Author Organization [facility] [employer] Address [address] [place] [address] Assessment Encounter Date Assessment Date Assessment LastModified by Organization Details LastModified Time 06/03/2024 06/03/2024 New patient presented for admission to the practice. Studies ordered as below. Discussed plan with patient, who expressed understanding . Follow up as noted below. [email or web address] Not available 06/03/2024 18:24:54 08/17/2024 08/17/2024 Patient presented for follow up. Studies ordered as below. Discussed plan with patient/careg amanda, who expressed understanding . Follow up as noted below. [email or web address] Not available 08/17/2024 15:15:20 Plan of Treatment Reminders Order Date Submit Date Provider Last Modified By Organization Details Last Modified Time Details Appointments ESTABLISH ED PATIENT 15 2024 11:00A M Gregg Wallis MD Not available Not available Not available Lab ESR (erythroc yte sedimenta tion rate), blood 2023 024 [facility], [address] [facility], [place], [address], 08/17/2024 16:48:43 lipid panel w/ direct LDL, serum 2023 024 [facility], [address] [facility], [place], [address], 08/18/2024 16:09:05 CMP, serum or plasma 2023 024 [facility], [address] [facility], [place], [address], 08/18/2024 16:09:04 C-peptide , serum 2023 024 [facility], [address], [place], [address], 08/20/2024 08:40:40 hemoglobi n A1c, QN, blood 2023 024 [facility], [address], [place], [address], 08/24/2024 21:16:25 TSH, serum or plasma 2023 024 [facility], [address], [place], [address], 08/24/2024 21:16:25 hepatitis C Ab, serum 2023 024 [facility], [address], [place], [address], 08/19/2024 09:42:56 CBC w/ auto diff 2023 024 [facility], [address], [place], [address], 08/18/2024 16:29:07 iron panel, serum or plasma 2023 024 [facility], [address], [place], [address], 08/24/2024 21:16:25 hepatitis C Ab, serum 2023 024 SHANNAN Not available 08/19/2024 11:15:20 hemoglobi n A1c, QN, blood 2023 024 SHANNAN Not available 08/18/2024 16:29:08 C-peptide , serum 2023 024 SHANNAN Not available 08/20/2024 10:19:[address] [facility], [address] [address], [place], [address], 08/17/2024 17:02:42 gynecolog ist referral 2023 SHANNAN Minor MD, [address], [place], [address], 08/17/2024 17:31:43 gynecolog ist referral 2023 024 SHANNAN Minor MD, [address], [place], [address], 06/04/2024 09:55:11 Procedures None recorded. Surgeries None recorded. Imaging None recorded. Medication Orders butalbita l-acetami nophen-ca ffeine 50 mg-325 mg-40 mg tablet 2023 [facility] [address] [place], [address], 08/17/2024 16:48:23 sertralin e 50 mg tablet 2023 024 [facility] [address] [place], [address], 08/17/2024 16:48:20 Zepbound 2.5 mg/0.5 mL subcutane ous pen injector 2023 [facility] [address] [place], [address], 08/17/2024 16:48:21 Patient TargetsNo targets recorded. Patient Instructions Encounter Date Encounter Id Patient Instructions Last Modified By Organization Details Last Modified Time 06/03/2024 [id number] infection from tattoos: care instructions [email or web address] Not available 06/03/2024 18:39:06 anemia: care instructions [email or web address] Not available 06/03/2024 18:39:06 body mass index: care instructions [email or web address] Not available 06/03/2024 18:39:06 learning about healthy weight [email or web address] Not available 06/03/2024 18:39:06 08/17/2024 [id number] headache: care instructions [email or web address] Not available 08/17/2024 16:48:10 dizziness: care instructions [email or web address] Not available 08/17/2024 16:48:11 infection from tattoos: care instructions [email or web address] Not available 08/17/2024 16:48:10 body mass index: care instructions mshenouda Not available 08/17/2024 16:48:11 learning about healthy weight mshenouda Not available 08/17/2024 16:48:10 iron deficiency anemia: care instructions [email or web address] Not available 08/17/2024 16:48:11 Reason for Referral 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 Referral for Sc reening for malignant neoplasm of cervix Referring Physician: Gregg Wallis, Internal Medicine, Encounter Date: 06/03/2024 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 Problems Name Problem SNOMED Code Status Onset Date Resolution Date Notes Provider Name and Address Organization Details Recorded Time Tattoo of skin 735901278915 Active 2023 Gregg Wallis MD [address], [place], [address], [facility] 18:31:55 Body mass index 30+ - obesity 990336901 Active 2023 Gregg Wallis MD [address], [place], [address], [facility] 16:32:49 Iron deficiency anemia 96006779 Active 2023 Gregg Wallis MD [address], [place], [address], [facility] 16:32:56 Dizziness 350569620 Active 2022 Epifanio Banerjee MD [address], [place], [address], [facility] 3 15:41:53 Pain of ear 434807066 Active 2022 Epifanio Banerjee MD [address], [place], [address], [facility] 3 16:05:26 Headache 19136737 Active 2022 Epifanio Banerjee MD [address], [place], [address], [facility] 3 16:06:04 Problem Notes None recorded. Medical [...] propionate 50 mcg/actuati on nasal spray,suspe nsion Valmy 1 spray every day by intranasa l [...] Available Not Available Not Available Estarylla 0.25 mg-0.035 mg tablet TAKE 1 TABLET BY MOUTH [...] Address Organization Details Last Updated DateTime 4 912085. 83 g 38.1 kg/m2 175.26 cm 98.9 [degF] 16 /min 130 mm[Hg] 88 mm[Hg] Roxy Schwartz [facility] 4 18:06:50 Date Recorded Heart rate Provider Name an d Address Organization Details Last Updated DateTime 06/03/2024 85 /min Gregg Wallis MD [address], [place], [address], [facility] 06/03/2024 18:32:20 Date Recorded Body weight Body temperature Body mass index (BMI) Body height Respiratory rate Systolic blood pressure Diastolic blood pressure Provider Name and Address Organization Details Last Updated DateTime 4 953181. 61 g 98.7 [degF] 38.5 kg/m2 175.26 cm 16 /min 117 mm[Hg] 78 mm[Hg] Roxy Schwartz [facility] 4 15:18:51 Date Recorded Heart rate Provider Name an d Address Organization Details Last Updated DateTime 08/17/2024 77 /min Gregg Wallis MD [address], [place], [address], [facility] 08/17/2024 16:27:58 Social History Question Answer Notes LastModified by Organizat ion Details LastModified Time Tobacco Smoking Status Never Smoker Gregg Wallis MD [address], [place], [address], [facility] 08/17/2024 16:45:24 Is Blood Transfusion Acceptable In An Emergency? Yes Information not available 08/17/2024 Are You Currently Employed? Yes Information not available 08/17/2024 What Is The Highest Grade Or Level Of School You Have Completed Or The Highest Degree You Have Received? [id number] Information not available 08/17/2024 What Is Your [...] Hep B, unspecified formulation 07/06/2024 completed Daylin elizabeth, [facility] 08/18/2024 21:39:17 Hep B, adolescent or pediatric 08/10/2024 completed Daylin elizabeth, [facility] 08/18/2024 21:40:16 Past Encounters Encounter ID Performer Location Encounter Start Date Encounter Closed Date Diagnosis/Indication Diagnosis SNOMED-CT Code Diagnosis ICD10 Code Diagnosis Note [id number] Gregg Wallis MD [facility], [facility] [address] [place] [address] 06/03/2024 17:13:32 06/03/2024 18:44:11 Migraine 08144953 G43.909 Body mass index 30+ - obesity 402772634 Z68.38 Anemia 665537234 D64.9 last CBC 03/2024 Family his tory of diabetes mellitus 661127958 Z83.3 father Screening for malignant neoplasm of cervix 899476602 Z12.4 Active or passive immunization 875949334 Z23 Tattoo of skin 841459374 1 02 L81.8 [id number] Gregg Wallis MD [facility], [facility] [address] [place] [address] 08/17/2024 14:43:08 08/17/2024 16:54:30 Adult health examination 571899108 Z00.00 Headache 14529893 R51.9 better with amitriptyl ine Dizziness 045115761 R42 resolved Tattoo of skin 595635096 1 02 L81.8 Acne 32779936 L70.9 seen Iron defic iency anemia 75026752 D50.9 Body mass index 30+ - obesity 281898325 Z68.38 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 Screening for malignant neoplasm of cervix 416903720 Z12.4 Active or passive immunization 936202862 Z23 Family his tory of diabetes mellitus 865042467 Z83.3 father Health Concerns Section Related Observation LastModified by Organization Detai ls LastModified Time None Recorded Concern Status LastModified by Organization Details LastModified Time None Recorded Advance Directives Directive None Recorded Payers Encounter Date Sequence Insurance Name Policy Number Policy Wilder Covered Member ID Wilder Member ID Guarantor Name 06/03/2024 1 *SELF PAY* Ci erra Vandeford 08/17/2024 1 U[employer] [id number] Sherri Vandeford [id number] Sherri Vandeford Notes Date Note Type Note [...] hearing loss while driving Gregg Wallis MD [address] [place] [address], [address], [facility] 06/03/2024 18:39:41 08/17/2024 text/html Hypertension F/UReported bypatient.Medications: [...] hearing loss while driving Gregg Wallis MD [address] [place] [address] [address], [place], [address], [facility] 08/17/2024 16:48:32 OBGyn Episode No OBEpisode recorded.
--- OUTSIDE RECORDS SUMMARY | 2025-01-20 11:55 | XMS_ITS | Data Portability ---
Author Organization [facility] Address [address] [place] [address] Care Team Providers Care Hat Blocker Name Role Phone CLIFFORD ARAGON Dive Supervisor MARTÍN MANCIA Primary Care Provider Assessment Encounter [...] DO Not Attach Compendium, Do Not Delete/merge, [id number] 4 08:19:31 culture, urine 2023 024 [facility] [employer] [facility], [address] [facility], [address], [address], 4 09:20:37 Referral None recorded. Procedures None recorded. Surgeries None recorded. Imaging None recorded. Medication Orders amitriptyli ne 25 mg tablet 2023 024 [facility], [address] [place], [address], 4 17:14:22 Patient TargetsNo targets recorded. Patient InstructionsNo instructions recorded. Reason for Referral None Reported. Results Created Date Observation Date Name Description Value Unit Range Abnormal Flag Note LastModifiedBy Organization Detail LastModifiedTime 05/01/20 24 05/02/2024 HEPAT IC FUNCT ION PANEL (7) protein, total 7.4 g/dL 6.0-8. 5 Not Available [facility] ([facility]) [address] [place], [place], [address], 05/02/2024 14:12:50 05/01/20 24 05/02/2024 HEPAT IC FUNCT ION PANEL (7) albumin 4.4 g/dL 4.0-5. 0 Not Available [facility] ([facility]) [address] [place], [address], 05/02/2024 14:12:50 05/01/20 24 05/02/2024 HEPAT IC FUNCT ION PANEL (7) bilirubin, total 0.6 mg/dL 0.0-1. 2 Not Available [facility] ([facility]) [address], [place], [address], 05/02/2024 14:12:50 05/01/20 24 05/02/2024 HEPAT IC FUNCT ION PANEL (7) bilirubin, direct 0.16 mg/dL 0.00-0 .40 Not Available [facility] ([facility]) [address] [place], [place], [address], 05/02/2024 14:12:50 05/01/20 24 05/02/2024 HEPAT IC FUNCT ION PANEL (7) alkaline phosphatase 83 IU/L 44-121 Not Available [facility] ([facility]) [address] [place], [address], 05/02/2024 14:12:50 05/01/20 24 05/02/2024 HEPAT IC FUNCT ION PANEL (7) AST (SGOT) 48 IU/L 0-40 above high normal Not Available [facility] ([facility]) [address], [place], [address], 05/02/2024 14:12:50 05/01/20 24 05/02/2024 HEPAT IC FUNCT ION PANEL (7) ALT (SGPT) 49 IU/L 0-32 above high normal Not Available [facility] ([facility]) [address], [place], [address], 05/02/2024 14:12:50 05/20/20 24 05/20/2024 urina lysis , dipst ick Leukocytes Small Not Available In-Offi ce Order Internal Use Only DO Not Attach Compendium DO Not Attach Compendium, Do Not Delete/merge, [id number] 05/20/2024 14:48:53 05/20/20 24 05/20/2024 urina lysis [...] 05/20/2024 urina lysis , dipst ick Specific [place] 1.010 Not Available In-Off ice Order Internal [...] Recorded Time Mixed anxiety and depressive disorder 402968073 Completed 201801/19/2021 SONY KRAUSE Attn: Italo beltran,[address] [facility], [place], [address], [place] [facility] 13:02:29 Acne 44927889 Active 2021 SONY KRAUSE Attn: Italo beltran,[address] [facility], [place], [address], [place] [facility] 2 15:56:18 Obesity 775029914 Active 2022 SONY KRAUSE Attn: Italo beltran,[address] [facility], [place], [address], [place] [facility] 3 13:34:19 Pharyngitis 250250505 Completed 04/19/2017 LILLY Bonilla Attn: Italo beltran,[address] [facility], [place], [address], [place] [facility] 7 18:35:35 Problem [...] Recorded Body height Body mass index (BMI) [Percentile] Per age and sex Body mass index (BMI) Body weight Heart rate Oxygen saturation Oxygen saturation in Arterial blood by Pulse oximetry Systolic blood pressure Diastolic blood pressure Provider Name and Address Organization Details Last Updated DateTime 3 172.72 cm 98 % 37.3 kg/m2 401569. 13 g 119 /min 97 % 97 % 110 mm[Hg] 68 mm[Hg] Rosy Floyd MA [facility] 3 16:09:46 Date Recorded Body height Body mass index (BMI) Body weight Heart rate Oxygen saturation Oxygen saturation in Arterial blood by Pulse oximetry Provider Name and Address Organization Details Last Updated DateTime 4 172.72 cm 39.1 kg/m2 865136. 24 g 80 /min 99 % 99 % Rosy Floyd MA [facility] 4 16:52:40 Date Recorded Systolic blood pressure Diastolic blood pressure Provider Name and Address Organization Details Last Updated DateTime 05/06/2024 112 mm[Hg] 81 mm[Hg] SONY KRAUSE Attn: Accounting, [place], [address], [facility] 05/06/2024 16:56:58 Social History Question Answer Notes LastModified by Organizat ion Details LastModified Time Tobacco Smoking Status Never Smoker LILLY Bonilla Attn: Accounting,[address] [place], [address], [facility] 04/19/2017 14:37:44 What Is Your Level Of Alcohol Consumption? Moderate Information not available 2022 What Is Your Level Of Caffeine Consumption? Occasional Information not available 04/19/2017 In The 14 Days Before Symptom Onset, Have You Had Close Contact With A Laboratory-batool boltoned COVID-19 While That Case Was Ill? No Information not available 01/18/2021 In The 14 Days Before Symptom Onset, Have You Had Close Contact With A Person Who Is Under Investigation For COVID-19 While That Person Was Ill? No Information not available 01/18/2021 Have You Been To An Area Known To Be High Risk For COVID-19? No [facility]. Information not available 2022 What Type Of Diet Are You Following? REGULAR Information not available 04/19/2017 What Is Your Home Situation? Both Parents Information not available 04/19/2017 Parent Involvement? Both Parents Involved Information not available 04/19/2017 What Was The Date Of Your Most Recent Tobacco Screening? 12/31/2022 [email or web address] Information not available 12/31/2022 Pool Exposure Yes Information not available 04/19/2017 What Is The Name Of Your School? [employer] Information not available 04/19/2017 Do You Use [...] Date Was Tobacco Cessation Counseling Provided? 12/31/2022 [email or web address] Information not available 12/31/2022 Year In School [...] Response Coronary Artery Disease N Other N High Blood Pressure N Atrial Fibrillation N Kidney or Bladder Problems N Thyroid Problems N GI Problems N Depression N COPD N Blood Clots N Skin Problems N Anemia N Heart Attack (PA) N Anxiety Disorder N Diabetes N Muscle, Joint, or Bone Problems N Seizures/Epilepsy N Acid Reflux (GERD) N Cancer N Stroke N Asthma N Allergies Y High Cholesterol N Hepatitis N Liver Disease N Headaches N Heart Failure N Osteoporosis N Gynecological History Statement/Question Response Flow Moderate [...] Organization Details Recorded Time DTaP 3 completed TOD [place], [place] [facility] 08/03/2021 09:48:27 DTaP 3 devang [place] [facility] 08/03/2021 09:48:33 DTaP 4 devang [place] [facility] 08/03/2021 09:48:46 DTaP 5 TOD [place] [facility] 08/03/2021 09:48:53 DTaP 8 devang [place] [facility] 08/03/2021 09:48:59 Hib, unspecified formulation 3 [place] [facility] 08/03/2021 09:54:28 Hib, unspecified formulation 3 [place] [facility] 08/03/2021 09:54:34 Hib, unspecified formulation 4 [place] [facility] 08/03/2021 09:54:38 Hib, unspecified formulation 4 [place] [facility] 08/03/2021 09:54:43 Hep A, unspecified formulation 6 completed Rosy [place] [facility] 08/03/2021 09:55:13 Hep A, unspecified formulation 7 completed [place] [facility] 08/03/2021 09:55:18 Hep B, adolescent or pediatric 3 completed [place] [facility] 08/03/2021 09:55:38 Hep B, adolescent or pediatric 3 completed [place] [facility] 08/03/2021 09:55:44 Hep B, adolescent or pediatric 4 completed [place] [facility] 08/03/2021 09:55:49 HPV9 4 completed [place] [facility] 08/03/2021 09:56:42 Influenza, injectable,quadriv alent, preservative free, pediatric 8 completed [place] [facility] 08/03/2021 11:27:19 Influenza, injectable,quadriv alent, preservative free, pediatric 9 completed [place] [facility] 08/03/2021 11:27:24 Influenza, injectable,quadriv alent, preservative free, pediatric 1 completed Ros[place] [facility] 08/03/2021 11:27:30 Influenza, injectable,quadriv alent, preservative free, pediatric 2 completed [place] [facility] 08/03/2021 11:27:39 MMR 4 completed [place] [facility] 08/03/2021 11:27:58 MMR 8 completed [place] [facility] 08/03/2021 11:28:03 meningococcal ACWY, unspecified formulation 4 completed [place] [facility] 08/03/2021 11:28:27 pneumococcal conjugate PCV 7 3 completed [place] [facility] 08/03/2021 11:28:40 pneumococcal conjugate PCV 7 3 completed [place] [facility] 08/03/2021 11:28:46 pneumococcal conjugate PCV 7 4 completed Ros[place] [facility] 08/03/2021 11:28:52 pneumococcal conjugate PCV 7 4 completed [place] [facility] 08/03/2021 11:29:04 IPV 3 completed [place] [facility] 08/03/2021 11:29:14 IPV 3 completed Rosy [place] [facility] 08/03/2021 11:29:21 IPV 5 completed Ros[place] [facility] 08/03/2021 11:29:26 IPV 8 completed Ros[place] [facility] 08/03/2021 11:29:45 Tdap 4 completed Rosy [place] [facility] 08/03/2021 11:29:56 varicella 4 completed Ros[place] [facility] 08/03/2021 11:36:02 varicella 8 completed Rosy [place] [facility] 08/03/2021 11:36:06 influenza, unspecified formulation 7 completed Ros[place] [facility] 05/06/2024 16:49:25 influenza, split (incl. purified surface antigen) 9 completed Ros[place] [facility] 05/06/2024 16:49:25 influenza, split (incl. purified surface antigen) 8 completed [place] [facility] 05/06/2024 16:49:25 Hep A, pediatric, unspecified formulation 7 completed Ros[place] [facility] 05/06/2024 16:49:25 Hep A, pediatric, unspecified formulation 6 completed Rosy [place] [facility] 05/06/2024 16:49:25 HPV9 7 completed Not Available [facility] 10/03/2019 02:45:29 Past Encounters Encounter ID Performer Location Encounter Start Date Encounter Closed Date Diagnosis/Indication Diagnosis SNOMED-CT Code Diagnosis ICD10 Code Diagnosis Note [id number] Clifford Aragon MD [facility] [address] [place] [address] 05/24/2015 15:20:28 05/24/2015 17:15:27 Pharyngitis [id number] Clifford Aragon MD [facility] [address] [facility] [place] [address] 12/04/2016 14:43:59 12/04/2016 15:23:39 Injury of ribs 832437264 S29.9XXA [id number] Clifford Aragon MD [facility] [address] [place] [address] 04/19/2017 14:03:01 04/19/2017 14:52:05 Adolescent care 062469798 Z00.3 [id number] Clifford Aragon MD [facility] [address] [facility] [place] [address] 11/27/2018 16:58:52 11/27/2018 17:55:05 Mixed anxiety and depressive disorder 138150928 F41.8 [id number] SONY KRAUSE [facility] [address] [place] [address] 01/18/2021 15:21:20 01/23/2021 12:06:36 Acne 45501405 L70.9 patient has acne covering cheeks and chin. open comedone without signs of scarring or erythema. - benzoyl peroxide - clinda gel - wash reusable masks and or switch mask often - drink plenty of water - cut down on greasy/sug shelia foods Dysmenorrhea 694614976 N 94.6 Patient has heavy and painful periods affecting her work. Denies history of clotting, migraines. Will start OCP. Denies being sexually active. Advised if she were to become sexually active this does not protect against std. disucssed different options for control and pill is fit for her. discussed how to take it and when to start. [id number] SONY KRAUSE [facility] [address] [place] [address] 02/02/2021 15:05:14 02/02/2021 16:49:12 At increased risk of sexually transmitted infection 356045402 Z20.2 patient is sexually active and would like std testing. Dysmenorrhea 958636716 N 94.6 Patient has heavy and painful periods affecting her work. Denies history of clotting, migraines. doing well on OCP. [id number] SONY KRAUSE [facility] [address] [place] [address] 08/03/2021 10:59:42 08/08/2021 08:23:25 Migraine 67627733 G43.909 two weeks of wrosening migraine after trauma to head. Nothing has helped the migraines OTC. She has nausea and vomiting with migraines. She is worried they keep getting worse. Not like past headaches. Recurrent urinary tract infection 080231915 N39.0 Patient continues to have recurrent UTI. Would like to see urology [id number] SONY KRAUSE [facility] [address] [place] [address] 08/17/2021 08:09:35 08/18/2021 08:48:29 Migraine 72084292 G43.909 two weeks of wrosening migraine after trauma to head. Nothing has helped the migraines OTC. She has nausea and vomiting with migraines. She is worried they keep getting worse. Not like past headaches. [id number] SONY KRAUSE [facility] [address] [place] [address] 11/30/2021 14:40:02 12/01/2021 10:22:59 Recurrent urinary tract infection 624076894 N39.0 Patient continues to have recurrent UTI. Would like to see urology - stay hydrated- void before and after sex- proper wiping [facility] 704678085 Z30.9 refill. takes it as prescribed and not missing doses. periods are three days and cramps are improved. Acne 74283803 L70.9 improvemen t on current regiment - benzoyl peroxide - clinda gel - wash reusable masks and or switch mask often - drink plenty of water - cut down on greasy/sug shelia foods Vaginal discharge 622816 006 N89.8 white dishcarge and change in smell after abx (keflex for uti). patient is sexually active with one partner. Denies pelvic pain, change in periods, rash, fever or chills. [id number] Chasity Rios MD [facility] [address] [place] [address] 2022 13:47:02 03/06/2022 09:40:41 Cyst of ovary 92650513 N83.209 Sherri has f/u with [facility] on Saturday03/05/22. - ER if pain worsens to r/o torsion- Continue OCP [id number] SONY KRAUSE [facility] [address] [place] [address] 04/26/2022 14:58:38 05/01/2022 10:44:54 Iron deficiency anemia 69478851 D50.9 - recheck labs- may need hematology - on ocp, periods controlled - increase green leafy veggies, beetz Acute sinusitis 81544415 J01.90 sick since april 07. increased headaches, frontal pain, cough >10 days. denies fever or chills. cp. sob. - hydrate and rest - ibuprofen or tylenol for body aches - z logan as prescribed - f/u if not improving or worsening. - ER if trouble breathing, worsening chest pain, 103 fever without improvemen t with NSAID/tyle nol. Polycystic ovary syndrome 243469750 E28.2 refill. had cyst removed on april 21 via a planned surgery. doing well today. Obesity 753629536 E66.9 bmi 32.4 [id number] SONY KRAUSE [facility] [address] [place] [address] 08/07/2022 14:57:03 08/08/2022 14:00:14 Migraine 73847832 G43.909 migraines improvemen t with amitripyli ne. advised taking earlier to avoid somnolence . - PEÑALOZA diary- eye exam- continue medication qhs- f/u 6 months or prn [id number] SONY KRAUSE [facility] [address] [place] [address] 12/31/2022 14:03:36 12/31/2022 14:35:34 Insomnia 795372535 G47.00 Discussed sleep hygiene - no tv, electronic s in room- go to bed at same time every night- Avoid eating 1-2 hours before bed- Do no have any caffeine after 3 pm- if unable to sleep she is to leave room and read for 15 minutes. May repeat this multiple times. Goal is not to associate room with anxiety or work Acne 71128698 L70.9 improvemen t on current regiment. refills - benzoyl peroxide - clinda gel - wash reusable masks and or switch mask often - drink plenty of water - cut down on greasy/sug shelia foods [id number] SONY KRAUSE [facility] [address] [place] [address] 03/28/2023 10:08:10 03/28/2023 13:32:10 Migraine without aura 66227910 G43.009 patient with episodes of dizziness and nausea preceding migraines. was controlled on amitriptyl ine before. Would like to restart. - PEÑALOZA diary- start amitriptyl ine- neurologis t referral [id number] SONY KRAUSE [facility] [address] [place] [address] 04/09/2023 16:09:23 04/09/2023 16:37:48 Obesity 711601141 E66.9 bmi 32.4 Patient denies fam hx of thyroid cancer, personal hx pancreatit is. Medication side effects were reviewed with patient and include ALEXY, pancreatit is, nausea, vomiting, stomach upset. Patient was shown pen and was shown how to clean area, inject pen, and how often to administer . did advise healthy dietincrea se veggies and lean proteins [id number] SONY KRAUSE [facility] [address] [place] [address] 06/27/2023 15:40:17 07/01/2023 15:28:42 Upper respiratory infection 95484547 J06.9 improving URI. given work note.- hydrate and rest- ibuprofen or tylenol for body aches-coug h drops prn to control cough- f/u if not improving or worsening. - ER if trouble breathing, worsening chest pain, 103 fever without improvemen t with NSAID/tyle nol. [id number] Landen rush MD [facility] [address] [place] [address] 03/30/2024 16:37:48 04/19/2024 03:47:54 [id number] Magdy Parr MD [facility] [address] [place] [address] 05/01/2024 13:43:38 05/01/2024 13:56:12 [id number] Magdy Parr MD [facility] [address] [place] [address] 05/06/2024 16:45:54 05/06/2024 17:33:01 Migraine without aura 10241186 G43.009 patient with episodes of dizziness and nausea preceding migraines. was controlled on amitriptyl ine before. Would like to restart. - PEÑALOZA diary- re-start amitriptyl ine [id number] Magdy Parr MD [facility] [address] [place] [address] 05/20/2024 14:43:22 05/20/2024 17:30:49 Dysuria 04023997 R30.0 Health Concerns Section Related Observation LastModified by Organization Detai ls LastModified Time None Recorded Concern Status LastModified by Organization Details LastModified Time None Recorded Advance Directives Directive None Recorded Payers Encounter Date Sequence Insurance Name Policy Number Policy Wilder Covered Member ID Wilder Member ID Guarantor Name 06/27/2023 1 [employer] [id number] Clement Ruiz [id number] Sherri Graciaeford 03/30/2024 1 [facility] [employer] [id number] Clement Graciaeford [id number] Sherri Graciaeford 05/01/2024 1 [facility] [facility] [id number] Clement Ruiz [id number] Sherri Graciaeford 05/06/2024 SLIDING FEE SCHEDULE - DISCOUNT Sherri Graciaeford 05/20/2024 1 [facility] [id number] Clement Ruiz [id number] Sherri Ruiz Notes Date Note Type Note Provider Name and Address Organization Details Recorded Time 06/27/2023 text/html 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 started with sore throat and developed cough and headache/congestion . Has been managing with otc medications. She is feeling better today and needs work-note. She denies fever, vomiting, diarrhea, cp, sob. SONY KRAUSE Attn: Accounting[address] [place], [address], [facility] 06/27/2023 21:46:29 05/06/2024 text/html here for headach es would like to restart amitriptyline again. SONY KRAUSE Attn: Accounting[address] [place], [address], [facility] 05/30/2024 07:33:48 OBGyn Episode No OBEpisode recorded.
--- OUTSIDE RECORDS SUMMARY | 2025-01-20 11:55 | XMS_ITS | Clinical Summary ---
Author Organization [facility] Address [address] [place] [address] Care Team Providers Care Cmo Name Role Phone Darshana Sellers Primary Care Provider + Suman Aparicio MD Unavailable [phone] Allergies No known active allergies Medications ibuprofen [...] Encounters Date Type Department Care Team Description 10/30/2024 1:30 PM FUEL SYSTEM MAINTENANCE WORKER Infusion [facility] at [address] [address] Iron deficiency anemia, unspecified iron deficiency anemia type (Primary Dx) from Last 3 Months Immunizations Immunization Administration Dates Next Due DTaP 12/26/2007, 5,2003,07/07,2003 [...] on file Legal Sex Female 7:31 PM F[employer]EL SYSTEM MAINTENANCE WORKER Gender Identity Female 12/08/2024 11:04 AM CDT Sexual Orientation Straight 12/08/2024 11 :04 AM CDT Obstetrics History Last Filed Vital Signs Vital Sign Reading Time Taken Comments Blood Pressure 100/68 10/30/2024 3:55 PM F[employer]EL SYSTEM MAINTENANCE WORKER Pulse 98 10/30/2024 3:55 PM FUEL SYSTEM MAINTENANCE WORKER Temperature 36.9 C (98.4 F) 10/30/2024 3:38 PM FUEL SYSTEM MAINTENANCE WORKER Respiratory Rate 18 10/30/2024 3:55 PM FUEL SYSTEM MAINTENANCE WORKER Oxygen Saturation 100% 10/30/2024 3:5 5 PM FUEL SYSTEM MAINTENANCE WORKER Inhaled Oxygen Concentration - - Weight 117.2 kg (258 lb 6.4 oz) 10/30/2024 1:34 PM FUEL SYSTEM MAINTENANCE WORKER with shoes Height 171.5 cm (5' 7.5 ) 10/21/2024 11 :14 AM FUEL SYSTEM MAINTENANCE WORKER pt refused to remove shoes Body Mass Index 39.87 10/21/2024 11:14 AM FUEL SYSTEM MAINTENANCE WORKER Plan of Treatment Health Maintenance Due Date Last Done Comments Cervical Cancer Screening 2003 Depression Screening 2003 Hepatitis C Screening 2003 Meningococcal B Vaccine (1 of 2 - Standard) 2019 Regular Well Visit/Exam 18-64 2021 DTaP/Tdap/Td Vaccine (7 - Td or Tdap) 04/16/2024 04/16/2014, 12/26/2007, 10/13/2004, Additional history exists Influenza Vaccine (Season Ended) 2025 06/06/2012, 06/22/2011, 07/01/2009, Additional history exists Pneumococcal vaccine <65 Completed 004, 2003, 2003, Additional history exists Varicella Vaccines Completed 12/26/2007, 06/09/2004 Meningococcal Vaccine Aged Out 04/16/2014 No ruba shay eligible based on patient's age to complete this topic HPV Vaccines Completed 04/19/2017, 04/16/2014 Hepatitis B Screening Completed 08/10/2024 , 07/06/2024, 2003, Additional history exists Insurance [facility] [address] [place] [address] [facility]MD Care Teams Cmo Relationship Specialty Start Date End Date Darshana Sellers PA PCP - General Physician Border Measurer 02/14/22 Suman Aparicio MD [address] [facility], [facility] [address] [place] [address] Medical Oncologist/[facility] 10/12/24
--- OUTSIDE RECORDS SUMMARY | 2025-01-20 11:55 | XMS_ITS | Referral Summary ---
Author Organization 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 Infusion [facility] at [address] [place] [id number] Iron deficiency anemia, unspecified iron deficiency anemia type (Primary Dx) from Last 3 Months Allergies No known [...] for nausea or vomiting 10 tablet 02/29/20 Active Additional Information Patient not taking.Reported on 10/21/2024 Active Problems Problem Noted Date Diagnosed Date Iron deficiency anemia 06/04/2022 Immunizations Immunization Administration Dates Next Due DTaP [...] on file Legal Sex Female 7:31 PM VESSEL SCRAPPER Gender Identity Female 12/08/2024 11:04 AM CDT Sexual Orientation Straight 12/08/2024 11 :04 AM CDT Last Filed Vital Signs Vital Sign Reading Time Taken Comments Blood Pressure 100/68 10/30/2024 3:55 PM VESSEL SCRAPPER Pulse 98 10/30/2024 3:55 PM VESSEL SCRAPPER Temperature 36.9 C (98.4 F) 10/30/2024 3:38 PM VESSEL SCRAPPER Respiratory Rate 18 10/30/2024 3:55 PM VESSEL SCRAPPER Oxygen Saturation 100% 10/30/2024 3:5 5 PM VESSEL SCRAPPER Inhaled Oxygen Concentration - - Weight 117.2 kg (258 lb 6.4 oz) 10/30/2024 1:34 PM VESSEL SCRAPPER with shoes Height 171.5 cm (5' 7.5 ) 10/21/2024 11 :14 AM VESSEL SCRAPPER pt refused to remove shoes Body Mass Index 39.87 10/21/2024 11:14 AM VESSEL SCRAPPER Plan of Treatment Not on file Insurance Member Subscriber Plan / Payer (Ef fective 2022-Present) Name:Sherri Krueger Relation to Subscriber:Self Name:Sherri Krueger Payer ID:[id number] (IC) Type:MEDICAID RISK OTHER Address: [address] [facility] HMO/PPO Address: [facility] [id number] [place] [id number] [facility] IDPA Care Teams Pipe Organ Technician Relationship Specialty Start Date End Date Darshana Sellers PA PCP - General Physician Electric Furnace Operator 02/14/22 Suman Aparicio MD [address] [facility], [facility] [address] [place] [address] Medical Oncologist/Manuscript Editor Hematology and Oncology 10/12/24
--- OUTSIDE RECORDS SUMMARY | 2025-01-20 11:55 | XMS_ITS | Clinical Summary ---
Author Organization [facility] Address [address] [facility] [place] [address] Care Team Providers Care Hand Dry Cleaner Name Role Phone Roel Aragon MD Primary Care Provider Unavail able Source Comments [facility],non-owned Affiliates and Associated Physician Practices is amultiple site organization consisting of ambulatory clinics and hospital sitesin [place], [place], [place] and [place]. This disclosure is being madepursuant to the Care Everywhere program and may not contain all information available regarding this patient. Last updated 18.[facility] [employer] Allergies No known active allergies Medications * Be aware that medications may not be up to date on this document. Alwaysverify current medications with the patient. ondansetron, disintegrating, (ZOFRAN ODT) 4 MG tablet Take 2 (two) tablets by mouth every 6 hours as needed for Nausea/Vomiting Allow tablet to dissolve on the tongue Active omeprazole (PRILOSEC) 20 MG capsule Take 1 (one) capsule by mouth daily before breakfast Active promethazine (PHENERGAN) 25 MG tablet Take 1 tablet by mouth every 6 hours as needed for Nausea/Vomiting 20 tablet 8 Active acetaminophen (Tylenol) 500 MG capsule Take 600 mg by mouth as needed Active benzoyl peroxide (Benzac) 5 % wash APPLY A THIN LATER TO THE AFFECTED AREA EVERY DAY Active clindamycin (Cleocin) 1 % gel APPLY THIN LAYER TOPICALLY TO THE AFFECTED AREA EVERY DAY 2 Active etonogestrel (Nexplanon) 68 MG implant Nexplanon 68 mg subdermal implant Inject 1 implant by subcutaneous route. Active ibuprofen (Motrin) 600 MG tablet Take 1 (one) tablet by mouth every 8 hours as needed Active meloxicam (Mobic) 7.5 MG tablet Take 1 (one) tablet by mouth once daily 30 tablet 5 3 Active tiZANidine (Zanaflex) 2 MG tablet Take 1 (one) tablet by mouth every 8 hours as needed for Muscle Spasms 20 tablet 2 3 Active Family History Medical History Relation Name [...] drink = 0.6 oz pur e alcohol) Comments No Sex and Gender Information Value Date Recorded Sex Assigned at Not on file Legal Sex Female 5:42 AM PRINT CUTTER Gender Identity Not on file Sexual Orientation [...] CHLAMYDIA/GONORRHEA SCREENING 2019 MENINGOCOCCAL (Group B) VACCINE SHARED DECISION-MAKING (1 of 2 - Standard) 2019 HEPATITIS C SCREENING 02/25/2021 DTAP/TDAP/TD VACCINES (1 - Tdap) 2022 HEPATITIS B VACCINE (1 of 3 - 19+ 3-dose series) 2022 COVID-19 VACCINE (3 - 2023- season) 2024 11/12/2022, 10/18/2022 DEPRESSION SCREENING 09/16/2024 INFLUENZA VACCINE (Season Ended) 2025 06/06/2012, 06/22/2011, 07/01/2009, Additional history exists ZOSTER VACCINE (1 of 2) 2053 HIB VACCINE Aged Out No longer eligi ble based on patient's age to complete this topic MENINGOCOCCAL GROUPS A/C/Y/W VACCINE Aged Out No longer eligible based on patient's age to complete this topic PNEUMOCOCCAL VACCINE Aged Out No long er eligible based on patient's age to complete this topic Insurance [employer] Care Teams Hand Dry Cleaner Relationship Specialty Start Date End Date Roel Aragon MD PCP - General 03/22/22
[2025-01-20 13:41] LABS: Iron 57 ug/dL (50-170); Percent Iron Saturation 19 % (12-57)
== END 2025-01-20 11:04 | disposition home or self-care (01) ==
LOC: CHSLAB 11:07
PROVIDERS: PCP Internal Medicine; Visit Provider Internal Medicine
DX: D50.9 Iron deficiency anemia, unspecified (principal)
CPT/HCPCS: 36415; 82728; 83540; 83550; 85025

== ENCOUNTER 2025-03-24 10:16 | Outpatient (CLI) | payer OTHER, SELFPAY ==
--- OUTSIDE RECORDS SUMMARY | 2025-03-24 10:29 | XMS_ITS | Clinical Summary ---
Author Organization [facility] Address [address] [place] [id number] Care Team Providers Care Producer Assistant Name Role Phone Darshana Sellers Primary Care Provider + Suman Aparicio MD Unavailable [phone] Allergies No known active allergies Medications ibuprofen [...] Encounters Date Type Department Care Team Description 01/21/2025 Orders Only [facility] [address] [facility] [address] [place] [address] Provider, MD [place] from Last 3 Months Immunizations Immunization Administration [...] on file Legal Sex Female 7:31 PM NAILER MACHINE Gender Identity Female 12/08/2024 11:04 AM CDT Sexual Orientation Straight 12/08/2024 11 :04 AM CDT Obstetrics History Last Filed Vital Signs Vital Sign Reading Time Taken Comments Blood Pressure 100/68 10/30/2024 3:55 PM NAILER MACHINE Pulse 98 10/30/2024 3:55 PM NAILER MACHINE Temperature 36.9 C (98.4 F) 10/30/2024 3:38 PM NAILER MACHINE Respiratory Rate 18 10/30/2024 3:55 PM NAILER MACHINE Oxygen Saturation 100% 10/30/2024 3:5 5 PM NAILER MACHINE Inhaled Oxygen Concentration - - Weight 117.2 kg (258 lb 6.4 oz) 10/30/2024 1:34 PM NAILER MACHINE with shoes Height 171.5 cm (5' 7.5) 10/21/2024 11 :14 AM NAILER MACHINE pt refused to remove shoes Body Mass Index 39.87 10/21/2024 11:14 AM NAILER MACHINE Plan of Treatment Health Maintenance Due Date Last Done Comments Cervical Cancer Screening 2003 Depression Screening 2003 Hepatitis C Screening 2003 Meningococcal B Vaccine (1 o f 2 - Standard) 2019 Regular Well Visit/Exam 18-64 2021 DTaP/Tdap/Td Vaccine (7 - Td or Tdap) 04/16/2024 04/16/2014, 12/26/2007, 10/13/2004, Additional history exists Influenza Vaccine (#1) 2025 2, 06/22/2011, 07/01/2009, Additional history exists Pneumococcal vaccine <65 Completed 004, 2003, 2003, Additional history exists Varicella Vaccines Completed 12/26/2007, 06/09/2004 HPV Vaccines Completed 04/19/2017, 04/16/2014 Hepatitis B Screening Completed 08/10/2024 , 07/06/2024, 2003, Additional history exists Procedures Procedure Name Priority Date/Time Associated Diagnosis Comments CBC WITH AUTO DIFFERENTIAL Routine 01/20/2025 2:33 PM CDT IRON AND TIBC Routine 01/20/2025 12:06 PM CDT from Last 3 Months Results * CBC with auto differential (01/20/2025 2:33 PM CDT) Blood us Historical Provider LAB BLOOD ORDERABLES Aicha l Result * Iron and TIBC (01/20/2025 12:06 PM CDT) Historical Provider LAB BLOOD ORDERABLES Aicha l Result from Last 3 Months Insurance [facility] [place] [facility] [place] [employer] Care Teams Producer Assistant Relationship Specialty Start Date End Date Darshana Sellers PA PCP - General Physician Pipe Wrapping Machine Operator 02/14/22 Suman Aparicio MD [facility], [address] [address] Medical Oncologist/Rn Pain Management Hematology and Oncology 10/12/24
--- OUTSIDE RECORDS SUMMARY | 2025-03-24 10:29 | XMS_ITS | Data Portability ---
Author Organization [facility] Address [address] [place] [address] Care Team Providers Care Racetrack Steward Name Role Phone CLIFFORD ARAGON [employer] Insurance Biller MARTÍN MANCIA Primary Care Provider [phone] Assessment Encounter Date Assessment Date Assessment LastModified [...] DO Not Attach Compendium, Do Not Delete/merge, [id number] 08:19:31 culture, urine 2023 024 [place] [employer] [facility], [address], [place] [address], [address], 09:20:37 Referral None recorded. Procedures None recorded. Surgeries None recorded. Imaging None recorded. Medication Orders amitriptyli ne 25 mg tablet 2023 024 [facility] [place], [address], 17:14:22 Patient TargetsNo targets recorded. Patient InstructionsNo instructions recorded. Reason for Referral None Reported. Results Created Date Observation Date Name Description Value Unit Range Abnormal Flag Note LastModifiedBy Organization Detail LastModifiedTime 05/01/20 24 05/02/2024 HEPAT IC FUNCT ION PANEL (7) protein, total 7.4 g/dL 6.0-8. 5 Not Available [facility] ([facility]) [address] [place], [address], 05/02/2024 14:12:50 05/01/20 24 05/02/2024 HEPAT IC FUNCT ION PANEL (7) albumin 4.4 g/dL 4.0-5. 0 Not Available [facility] ([facility]) [address] [place], [address], 05/02/2024 14:12:50 05/01/20 24 05/02/2024 HEPAT IC FUNCT ION PANEL (7) bilirubin, total 0.6 mg/dL 0.0-1. 2 Not Available [facility] ([facility]) [address] [place], [address], 05/02/2024 14:12:50 05/01/20 24 05/02/2024 HEPAT IC FUNCT ION PANEL (7) bilirubin, direct 0.16 mg/dL 0.00-0 .40 Not Available [facility] ([facility]) [address] [place], [address], 05/02/2024 14:12:50 05/01/20 24 05/02/2024 HEPAT IC FUNCT ION PANEL (7) alkaline phosphatase 83 IU/L 44-121 Not Available [facility] ([facility]) [address] [place], [address], 05/02/2024 14:12:50 05/01/20 24 05/02/2024 HEPAT IC FUNCT ION PANEL (7) AST (SGOT) 48 IU/L 0-40 above high normal Not Available [facility] ([facility]) [address] [place], [address], 05/02/2024 14:12:50 05/01/20 24 05/02/2024 HEPAT IC FUNCT ION PANEL (7) ALT (SGPT) 49 IU/L 0-32 above high normal Not Available [facility] ([facility]) [address] [facility], [place], [address], 05/02/2024 14:12:50 05/20/20 24 05/20/2024 urina lysis [...] Attach Compendium, Do Not Delete/merge, 05/20/2024 14:48:53 05/20/2005/20/2024 urina lysis , dipst ick Urobilinogen .2 [...] 05/20/2024 urina lysis , dipst ick Specific Mobeetie 1.010 Not Available In-Off ice Order Internal Use Only DO Not Attach Compendium DO Not Attach Compendium, Do Not Delete/merge, [facility] 05/20/2024 14:48:53 05/20/20 24 05/20/2024 urina lysis , dipst ick Ketone Negati ve Not Available In-Office Order Internal Use Only DO Not Attach Compendium DO Not Attach Compendium, Do Not Delete/merge, [facility] 05/20/2024 14:48:53 05/20/20 24 05/20/2024 urina lysis , dipst ick Bilirubin Negati ve Not Available In-Office Order Internal Use Only DO Not Attach Compendium DO Not Attach Compendium, Do Not Delete/merge, [facility] 05/20/2024 14:48:53 05/20/2005/20/2024 urina lysis , dipst ick Glucose Negati ve Not Available In-Office Order Internal Use Only DO Not Attach Compendium DO Not Attach Compendium, Do Not Delete/merge, [facility] 05/20/2024 14:48:53 05/20/2005/20/2024 urina lysis , dipst ick Appearance Slight ly Cloudy Not Available In-Office Order Internal Use Only DO Not Attach Compendium DO Not Attach Compendium, Do Not Delete/merge, [facility] 05/20/2024 14:48:53 05/20/2005/20/2024 urina lysis , dipst ick Color Pale Yellow Not Available In-Office Order Internal Use Only DO Not Attach Compendium DO Not Attach Compendium, Do Not Delete/merge, [facility] 05/20/2024 14:48:53 Result Notes None recorded. Problems Name Problem SNOMED Code Status Onset Date Resolution Date Notes Provider Name and Address Organization Details Recorded Time Mixed anxiety and depressive disorder 363056595 Completed 201801/19/2021 SONY KRAUSE Attn: Italo beltran,[address] [facility], [place], [address], [facility] 13:02:29 Acne 77889143 Active 2021 SONY KRAUSE Attn: Italo beltran,[address] [facility], [place], [address], [place] [facility] 2 15:56:18 Obesity 757500215 Active 2022 SONY KRAUSE Attn: Italo beltran,[address] [facility], [place], [address], [place] [facility] 3 13:34:19 Pharyngitis 858248152 Completed 04/19/2017 LILLY Bonilla Attn: Italo beltran,[address] [facility], [place], [address], [place] [facility] 7 18:35:35 Problem Notes None recorded. Medical [...] ondansetr on 4 mg disintegr ating tablet Place 1 tablet twice a day by translin gual route as needed. 05/06 completed Not Available Not Available Not [...] Not Available Not Available Vitals Date Recorded Systolic And Diastolic Provider Name and Address Organization Details Last Updated DateTime 05/06/2024 112/81 mm[Hg] Joaquin KRAUSE Attn: Accounting,[address] [place], [address], [facility] 05/06/2024 16:56:58 Date Recorded Body height Body mass index (BMI) Body weight Heart rate Oxygen saturation Oxygen saturation in Arterial blood by Pulse oximetry Provider Name and Address Organization Details Last Updated DateTime 4 172.72 cm 39.1 kg/m2 044183. 24 g 80 /min 99 % 99 % Rosy Floyd MA [facility] 4 16:52:40 Date Recorded Body height Body mass index (BMI) [Percentile] Per age and sex Body mass index (BMI) Body weight Heart rate Oxygen saturation Oxygen saturation in Arterial blood by Pulse oximetry Systolic And Diastolic Provider Name and Address Organization Details Last Updated DateTime 3 172.72 cm 98 % 37.3 kg/m2 723409. 13 g 119 /min 97 % 97 % 110/68 mm[Hg] Rosy Floyd MA [facility] 3 16:09:46 Social History Question Answer Notes LastModified by Organizat ion Details LastModified Time Tobacco Smoking Status Never Smoker LILLY Bonilla Attn: Accounting,[address] [place], [address], [facility] 04/19/2017 14:37:44 What Is Your Level Of Caffeine Consumption? Occasional Information not available 04/19/2017 In The 14 Days Before Symptom Onset, Have You Had Close Contact With A Laboratory-confi rmed COVID-19 While That Case Was Ill? No Information not available 01/18/2021 In The 14 Days Before Symptom Onset, Have You Had Close Contact With A Person Who Is Under Investigation For COVID-19 While That Person Was Ill? No Information not available 01/18/2021 Have You Been To An Area Known To Be High Risk For COVID-19? No [facility]. Information not available 2022 What Type Of Diet Are You Following? REGULAR Information not available 04/19/2017 What Is Your Home Situation? Both Parents Information not available 04/19/2017 Parent Involvement? Both Parents Involved Information not available 04/19/2017 What Was The Date Of Your Most Recent Tobacco Screening? 12/31/2022 [email or web address] Information not available 12/31/2022 Pool Exposure Yes Information not available 04/19/2017 What Is The Name Of Your School? [employer] Information not available 04/19/2017 Do You Use [...] Date Was Tobacco Cessation Counseling Provided? 12/31/2022 [email or web address] Information not available 12/31/2022 Year In School 9 Informat[employer] n not available 04/19/2017 Sex: Female Functional Status Question Answer Note LastModified by Organization D etails LastModified Time What is your level of alcohol consumption? Moderate Information not available 2022 What is your exercise level? None Information [...] Skin Problems N Anemia N Heart Attack (AR) N Anxiety Disorder N Diabetes N Muscle, [...] [place] [facility] 08/03/2021 09:48:46 DTaP 5 devang Floyd [place], [place] [facility] 08/03/2021 09:48:53 DTaP 8 TOD [place] [facility] 08/03/2021 09:48:59 Hib, unspecified formulation 3 devang [place] [facility] 08/03/2021 09:54:28 Hib, unspecified formulation 3 [place] [facility] 08/03/2021 09:54:34 Hib, unspecified formulation 4 [place] [facility] 08/03/2021 09:54:38 Hib, unspecified formulation 4 devang [place] [facility] 08/03/2021 09:54:43 Hep [...] Hep A, pediatric, unspecified formulation 7 completed [place] aP[place] [facility] 05/06/2024 16:49:25 Hep A, pediatric, unspecified formulation 6 completed TOD [place], [place] [facility] 05/06/2024 16:49:25 HPV9 7 completed Not Available [facility] 10/03/2019 02:45:29 Past Encounters Encounter ID Performer Location Encounter Start Date Encounter Closed Date Diagnosis/Indication Diagnosis SNOMED-CT Code Diagnosis ICD10 Code Diagnosis Note [id number] Clifford Aragon MD [facility] [address] [place] [address] 05/24/2015 15:20:28 05/24/2015 17:15:27 Pharyngitis 806462345 [id number] Clifford Aragon MD [facility] [address] [place] [address] 12/04/2016 14:43:59 12/04/2016 15:23:39 Injury of ribs 371731717 S29.9XXA [id number] Clifford Aragon MD [facility] [address] [place] [address] 04/19/2017 14:03:01 04/19/2017 14:52:05 Adolescent care 255674509 Z00.3 [id number] Clifford Aragon MD [facility] [address] [place] [address] 11/27/2018 16:58:52 11/27/2018 17:55:05 Mixed anxiety and depressive disorder 827486754 F41.8 [id number] SONY KRAUSE [facility] [address] [place] [address] 01/18/2021 15:21:20 01/23/2021 12:06:36 Acne 83626862 L70.9 patient has acne covering cheeks and chin. open comedone without signs of scarring or erythema. - benzoyl peroxide - clinda gel - wash reusable masks and or switch mask often - drink plenty of water - cut down on greasy/sug shelia foods Dysmenorrhea 701857266 N 94.6 Patient has heavy and painful periods affecting her work. Denies history of clotting, migraines. Will start OCP. Denies being sexually active. Advised if she were to become sexually active this does not protect against std. disucssed different options for control and pill is fit for her. discussed how to take it and when to start. [id number] SONY KRAUSE [facility] [address] [place] [address] 02/02/2021 15:05:14 02/02/2021 16:49:12 At increased risk of sexually transmitted infection 118688947 Z20.2 patient is sexually active and would like std testing. Dysmenorrhea 565928553 N 94.6 Patient has heavy and painful periods affecting her work. Denies history of clotting, migraines. doing well on OCP. [id number] SONY KRAUSE [facility] [address] [place] [address] 08/03/2021 10:59:42 08/08/2021 08:23:25 Migraine 29448726 G43.909 two weeks of wrosening migraine after trauma to head. Nothing has helped the migraines OTC. She has nausea and vomiting with migraines. She is worried they keep getting worse. Not like past headaches. Recurrent urinary tract infection 809478087 N39.0 Patient continues to have recurrent UTI. Would like to see urology [id number] SONY KRAUSE [facility] [address] [facility] [place] [address] 08/17/2021 08:09:35 08/18/2021 08:48:29 Migraine 82489229 G43.909 two weeks of wrosening migraine after trauma to head. Nothing has helped the migraines OTC. She has nausea and vomiting with migraines. She is worried they keep getting worse. Not like past headaches. [id number] SONY KRAUSE [facility] [address] [place] [address] 11/30/2021 14:40:02 12/01/2021 10:22:59 Recurrent urinary tract infection 227620521 N39.0 Patient continues to have recurrent UTI. Would like to see urology - stay hydrated- void before and after sex- proper wiping technique [facility] ion care management 335629335 Z30.9 refill. takes it as prescribed and not missing doses. periods are three days and cramps are improved. Acne 95301434 L70.9 improvemen t on current regiment - benzoyl peroxide - clinda gel - wash reusable masks and or switch mask often - drink plenty of water - cut down on greasy/sug shelia foods Vaginal discharge 115311 006 N89.8 white dishcarge and change in smell after abx (keflex for uti). patient is sexually active with one partner. Denies pelvic pain, change in periods, rash, fever or chills. [id number] Chasity Rios MD [facility] [address] [place] [address] 2022 13:47:02 03/06/2022 09:40:41 Cyst of ovary 87914202 N83.209 Sherri has f/u with [facility] on Saturday03/05/22. - ER if pain worsens to r/o torsion- Continue OCP [id number] SONY KRAUSE [facility] [address] [place] [address] 04/26/2022 14:58:38 05/01/2022 10:44:54 Iron deficiency anemia 91026142 D50.9 - recheck labs- may need hematology - on ocp, periods controlled - increase green leafy veggies, beetz Acute sinusitis 79651551 J01.90 sick since april 07. increased headaches, frontal pain, cough >10 days. denies fever or chills. cp. sob. - hydrate and rest - ibuprofen or tylenol for body aches - z logan as prescribed - f/u if not improving or worsening. - ER if trouble breathing, worsening chest pain, 103 fever without improvemen t with NSAID/tyle nol. Polycystic ovary syndrome 137296293 E28.2 refill. had cyst removed on april 21 via a planned surgery. doing well today. Obesity 685457707 E66.9 bmi 32.4 [id number] SONY KRAUSE [facility] [address] [place] [address] 08/07/2022 14:57:03 08/08/2022 14:00:14 Migraine 86255955 G43.909 migraines improvemen t with amitripyli ne. advised taking earlier to avoid somnolence . - PEÑALOZA diary- eye exam- continue medication qhs- f/u 6 months or prn [id number] SONY KRAUSE [facility] [address] [facility] [place] [address] 12/31/2022 14:03:36 12/31/2022 14:35:34 Insomnia 515954622 G47.00 Discussed sleep hygiene - no tv, electronic s in room- go to bed at same time every night- Avoid eating 1-2 hours before bed- Do no have any caffeine after 3 pm- if unable to sleep she is to leave room and read for 15 minutes. May repeat this multiple times. Goal is not to associate room with anxiety or work Acne 12686405 L70.9 improvemen t on current regiment. refills - benzoyl peroxide - clinda gel - wash reusable masks and or switch mask often - drink plenty of water - cut down on greasy/sug shelia foods [id number] SONY KRAUSE [facility] [address] [place] [address] 03/28/2023 10:08:10 03/28/2023 13:32:10 Migraine without aura 97228859 G43.009 patient with episodes of dizziness and nausea preceding migraines. was controlled on amitriptyl ine before. Would like to restart. - PEÑALOZA diary- start amitriptyl ine- neurologis t referral [id number] SONY KRAUSE [facility] [address] [place] [address] 04/09/2023 16:09:23 04/09/2023 16:37:48 Obesity 748366024 E66.9 bmi 32.4 Patient denies fam hx of thyroid cancer, personal hx pancreatit is. Medication side effects were reviewed with patient and include ALEXY, pancreatit is, nausea, vomiting, stomach upset. Patient was shown pen and was shown how to clean area, inject pen, and how often to administer . did advise healthy dietincrea se veggies and lean proteins [id number] SONY KRAUSE [facility] [address] [place] [address] 06/27/2023 15:40:17 07/01/2023 15:28:42 Upper respiratory infection 43062069 J06.9 improving URI. given work note.- hydrate and rest- ibuprofen or tylenol for body aches-coug h drops prn to control cough- f/u if not improving or worsening. - ER if trouble breathing, worsening chest pain, 103 fever without improvemen t with NSAID/tyle nol. [id number] Landen rush MD [facility] [address] [place] [address] 03/30/2024 16:37:48 04/19/2024 03:47:54 [id number] Magdy Parr MD [facility] [address] [place] [address] 05/01/2024 13:43:38 05/01/2024 13:56:12 [id number] Magdy Parr MD [facility] [address] [place] [address] 05/06/2024 16:45:54 05/06/2024 17:33:01 Migraine without aura 46574192 G43.009 patient with episodes of dizziness and nausea preceding migraines. was controlled on amitriptyl ine before. Would like to restart. - PEÑALOZA diary- re-start amitriptyl ine [id number] Magdy Parr MD [facility] [address] [place] [address] 05/20/2024 14:43:22 05/20/2024 17:30:49 Dysuria 29720843 R30.0 Health Concerns Section Related Observation LastModified by Organization Detai ls LastModified Time None Recorded Concern Status LastModified by Organization Details LastModified Time None Recorded Advance Directives Directive None Recorded Payers Insurance Date Sequence Insurance Name Policy Number Policy Wilder Covered Member ID Wilder Member ID Guarantor Name 03/30/2024 [facility] (MEDICAID HMO) [id number] Sherri Vandeford [id number] Sherri Ofelia Vandeford 03/30/2024 1 [place] [facility] EM[facility] DEPARTMENT OF PUBLIC AID Sherri Vandeford [id number] Sherri Ofelia Vandeford 03/30/2024 2 [place] [id number] Sherri Vandeford [id number] Sherri Ofelia Vandeford 01/20/2021 1 [facility] - AETNA CHOICE POS II (POS) Sherri Vandeford [id number] Sherri Ofelia Vandeford 03/30/2024 1 AETNA (POS) [id number] Clement Vandeford [id number] Sherri Ofelia Vandeford 03/30/2024 1 [employer] - DOS PRIOR TO 21 - [facility] BENEFITS PLAN Sherri Vandeford [id number] Sherri Ofelia Vandeford 03/06/2022 1 [place] [id number] Clement Vandeford [id number] Sherri Ofeila Vandeford 03/30/2024 1 [place] [facility] EMERGENC[facility] DEPARTMENT OF PUBLIC AID Sherri Vandeford [id number] Sherri Ofelia Vandeford 05/21/2024 1 [facility] [id number] Clement Vandeford [id number] Sherri Ofelia Vandeford 05/06/2024 SLIDING FEE SCHEDULE - DISCOUNT Sherri Ofelia Vandeford Notes Date Note Type Note Provider Name and Address Organization Details Recorded Time 06/27/2023 text/html 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 started with sore throat and developed cough and headache/congestion . Has been managing with otc medications. She is feeling better today and needs work-note. She denies fever, vomiting, diarrhea, cp, sob. SONY KRAUSE Attn: Accounting,[address] [facility], [place], [address], [facility] 06/27/2023 21:46:29 05/06/2024 text/html here for headach es would like to restart amitriptyline again. SONY KRAUSE Attn: Accounting,[address] [facility], [place], [address], [facility] 05/30/2024 07:33:48 OBGyn Episode No OBEpisode recorded.
--- OUTSIDE RECORDS SUMMARY | 2025-03-24 10:29 | XMS_ITS | Referral Summary ---
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 Gender Identity Female 12/08/2024 11:04 AM CDT Sexual Orientation Straight 12/08/2024 11 :04 AM CDT Last Filed Vital Signs Vital Sign Reading Time Taken Comments Blood Pressure 100/68 10/30/2024 3:55 PM 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 Pulse 98 10/30/2024 3:55 PM 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 Temperature 36.9 C (98.4 F) 10/30/2024 3:38 PM 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 Respiratory Rate 18 10/30/2024 3:55 PM 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 Oxygen Saturation 100% 10/30/2024 3:5 5 PM 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 Inhaled Oxygen Concentration - - Weight 117.2 kg (258 lb 6.4 oz) 10/30/2024 1:34 PM 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 Height 171.5 cm (5' 7.5) 10/21/2024 11 :14 AM 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 Body Mass Index 39.87 10/21/2024 11:14 AM 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 Plan of Treatment Not on file Procedures Procedure Name Priority Date/Time Associated Diagnosis Comments CBC WITH AUTO DIFFERENTIAL Routine 01/20/2025 2:33 PM CDT IRON AND TIBC Routine 01/20/2025 12:06 PM CDT from Last 3 Months Results * CBC with auto differential (01/20/2025 2:33 PM CDT) Blood Historical Provider LAB BLOOD ORDERABLES Aicha l Result * Iron and TIBC (01/20/2025 12:06 PM CDT) Historical Provider LAB BLOOD ORDERABLES Aicha l Result from Last 3 Months Insurance [facility] HMO/PPO Address: [facility] [id number] [place] [address] [facility] IDPA Care Teams Alteration Manager Relationship Specialty Start Date End Date Darshana Sellers PA PCP - General Physician Bead Stringer 02/14/22 Suman Aparicio MD [address] [place] [address] MEDICAL ONCOLOGY, [place] [id number] Medical Oncologist/Auto Emissions Technician Hematology and Oncology 10/12/24
--- OUTSIDE RECORDS SUMMARY | 2025-03-24 10:29 | XMS_ITS | Data Portability ---
Author Organization [facility] [employer] [facility], [employer] Address [address] [address] Assessment Encounter Date Assessment Date Assessment LastModified [...] noted below. [email or web address] Not available 08/17/2024 15:15:20 03/22/2025 03/22/2025 Patient presented for follow up. Studies ordered as below. Discussed plan with patient/careg amanda, who expressed understanding . Follow up as noted below. [email or web address] Not available 03/22/2025 12:27:32 Plan of Treatment Reminders Order Date Submit Date Provider Last Modified By Organization Details Last Modified Time Details Appointments ESTABLISH ED PATIENT 15 2025 11:00A Jada Wallis MD Not available Not available Not available Lab ESR (erythroc yte sedimenta tion rate), blood [address] [facility] (Lab), [address] [place], [address], 03/22/2025 12:32:39 HbA1c (hemoglob in A1c), blood [address] [facility] (Lab), [address] [place], [address], 03/22/2025 12:32:39 TSH, serum or plasma [address] [facility] (Lab), [address] [facility], [place], [address], 03/22/2025 12:32:39 ESR (erythroc yte sedimenta tion rate), blood 2023 024 [facility], [address] [place], [address], 08/17/2024 16:48:43 lipid panel w/ direct LDL, serum 2023 024 [facility], [address] [place], [address], 08/18/2024 16:09:05 CMP, serum or plasma 2023 024 [facility], [address] [place], [address], 08/18/2024 16:09:04 C-peptide , serum 2023 024 [facility], [address] [place], [address], 08/20/2024 08:40:40 hemoglobi n A1c, QN, blood 2023 024 [facility], [address] [place], [address], 08/24/2024 21:16:25 TSH, serum or plasma 2023 024 [facility], [address] [place], [address], 08/24/2024 21:16:25 hepatitis C Ab, serum 2023 024 [facility], [address] [place], [address], 08/19/2024 09:42:56 CBC w/ auto diff 2023 024 [facility], [address] [facility], [place], [address], 08/18/2024 16:29:07 iron panel, serum or plasma 2023 [facility], [address] [facility], [place], [address], 08/24/2024 21:16:25 hepatitis C Ab, serum 2023 024 SHANNAN Not available 08/19/2024 11:15:20 hemoglobi n A1c, QN, blood 2023 024 SHANNAN Not available 08/18/2024 16:29:08 C-peptide , serum 2023 024 SHANNAN Not available 08/20/2024 10:19:[address] referral 2023 024 [facility], [address] [facility], [facility] [address], [place], [address], 08/17/2024 17:02:42 gynecolog ist referral 2023 024 SHANNAN Minor MD, [address], [place], [address], 08/17/2024 17:31:43 gynecolog ist referral 2023 024 SHANNAN Minor MD, [address], [place], [address], 06/04/2024 09:55:11 Procedures None recorded. Surgeries None recorded. Imaging None recorded. Medication Orders Wegovy 0.25 mg/0.5 mL subcutane ous pen injector 2024 025 [facility], [facility], [place], [address], 03/22/2025 12:32:34 butalbita l-acetami nophen-ca ffeine 50 mg-325 mg-40 mg tablet 2023 024 [facility] [address] [place], [address], 08/17/2024 16:48:23 sertralin e 50 mg tablet 2023 024 [facility] [address] [place], [address], 08/17/2024 16:48:20 Zepbound 2.5 mg/0.5 mL subcutane ous pen injector 2023 025 [facility] [address] [place], [address], 03/22/2025 12:23:55 Patient TargetsNo targets recorded. Patient Instructions Encounter Date Encounter Id Patient Instructions Last Modified By Organization Details Last Modified Time 06/03/2024 [id number] infection from tattoos: care instructions [email or web address] Not available 06/03/2024 18:39:06 anemia: care instructions mshenouda Not available 06/03/2024 18:39:06 body mass index: care instructions [email or web address] Not available 06/03/2024 18:39:06 learning about healthy weight mshenouda Not available 06/03/2024 18:39:06 08/17/2024 [id number] headache: care instructions [email or web address] Not available 08/17/2024 16:48:10 dizziness: care instructions mshenouda Not available 08/17/2024 16:48:11 infection from tattoos: care instructions [email or web address] Not available 08/17/2024 16:48:10 body mass index: care instructions mshenouda Not available 08/17/2024 16:48:11 learning about healthy weight mshenouda Not available 08/17/2024 16:48:10 iron deficiency anemia: care instructions mshenouda Not available 08/17/2024 16:48:11 03/22/2025 [id number] infection from tattoos: care instructions mshenouda Not available 03/22/2025 12:30:49 headache: care instructions mshenouda Not available 03/22/2025 12:30:49 iron deficiency anemia: care instructions mshenouda Not available 03/22/2025 12:30:49 body mass index: care instructions mshenouda Not available 03/22/2025 12:30:49 learning about healthy weight mshenouda Not available 03/22/2025 12:30:49 Reason for Referral [employer] Referral for Sc reening for malignant neoplasm of cervix Referring Physician: Gregg Wallis, Internal Medicine, Encounter Date: 06/03/2024 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 Referring Physician: Gregg Wallis, Internal Medicine, Encounter Date: 08/17/2024 [employer] Referral for Sc reening for malignant neoplasm of cervix Referring Physician: Gregg Wallis, Internal Medicine, Encounter Date: 08/17/2024 Results Created Date Observation Date Name Description Value Unit Range Abnormal Flag Note LastModifiedBy Organization Detail LastModifiedTime 08/20/20 24 08/20/2024 Chlam ydia trach omati s and Neiss eria gonor rhoea e rRNA panel - Speci men by ROGERIO with probe detec tion chlamydia trachomatis, PCR NEGATI VE text: negati ve Not Available Not Available 03/22/2025 03:25:01 08/20/20 24 08/20/2024 Chlam ydia trach omati s and Neiss eria gonor rhoea e rRNA panel - Speci men by ROGERIO with probe detec tion neisseria gonorrhoeae, PCR NEGATI VE text: negati ve Not Available Not Available 03/22/2025 03:25:01 08/20/20 24 08/20/2024 Trich omona s vagin ara rRNA [Pres ence] in Speci men by ROGERIO with probe detec tion trichomonas vaginalis ribosomal RNA (rrna) NEGATI VE text: negati ve Not Available Not Available 03/22/2025 03:25:01 Result Notes None recorded. Problems Name Problem SNOMED Code Status Onset Date Resolution Date Notes Provider Name and Address Organization Details Recorded Time Tattoo of skin 583950257061 Active 2023 Gregg Wallis MD [address], [place], [address], [facility] 4 18:31:55 Body mass index 30+ - obesity 715416076 Active 2023 Gregg Wallis MD [address], [place], [address], [facility] 4 16:32:49 Iron deficiency anemia 06768147 Active 2023 Gregg Wallis MD [address], [place], [address], [facility] 4 16:32:56 Dizziness 870242611 Active 2022 Epifanio Banerjee MD [address], [place], [address], [facility] 3 15:41:53 Pain of ear 164910406 Active 2022 Epifanio Banerjee MD [address], [place], [address], [facility] 3 16:05:26 Headache 03935447 Active 2022 Epifanio Banerjee MD [address], [place], [address], [facility] 3 16:06:04 Problem Notes None recorded. Medical [...] propionate 50 mcg/actuati on nasal spray,suspe nsion Denn[place] 1 spray every day by intranasa l [...] completed Not Available Not Available Not Available Wegovy 0.25 mg/0.5 mL subcutaneou s pen injector Inject 0.25 mg every week by subcutane ous route. 2024 active Not Available Not Available Not Avai lable Zepbound 2.5 mg/0.5 mL subcutaneou s pen injector Inject 2.5 mg every week by subcutane ous route. 03/22 completed Not Available Not Available Not Available Vitals Date Recorded Heart rate Provider Name an d Address Organization Details Last Updated DateTime 03/22/2025 93 /min Gregg Wallis MD [address], [place], [address], [facility] 03/22/2025 12:27:17 Date Recorded Body height Respiratory rate Body temperature Body mass index (BMI) Body weight Systolic And Diastolic Provider Name and Address Organization Details Last Updated DateTime 5 175.26 cm 16 /min 97.8 [degF] 39.1 kg/m2 536697. 98 g 121/81 mm[Hg] Staci Pierce [facility] 5 12:09:54 Date Recorded Heart rate Provider Name an d Address Organization Details Last Updated DateTime 06/03/2024 85 /min Gregg Wallis MD [address], [place], [address] 06/03/2024 18:32:20 Date Recorded Body weight Body mass index (BMI) Body height Body temperature Respiratory rate Systolic And Diastolic Provider Name and Address Organization Details Last Updated DateTime 4 134445. 83 g 38.1 kg/m2 175.26 cm 98.9 [degF] 16 /min 130/88 mm[Hg] Roxy Schwartz [facility] 4 18:06:50 Date Recorded Heart rate Provider Name an d Address Organization Details Last Updated DateTime 08/17/2024 77 /min Gregg Wallis MD [address], [place], [address], [facility] 08/17/2024 16:27:58 Date Recorded Body weight Body temperature Body mass index (BMI) Body height Respiratory rate Systolic And Diastolic Provider Name and Address Organization Details Last Updated DateTime 4 460194. 61 g 98.7 [degF] 38.5 kg/m2 175.26 cm 16 /min 117/78 mm[Hg] Roxy Schwartz [facility] 15:18:51 Social History Question Answer Notes LastModified by Organizat ion Details LastModified Time Tobacco Smoking Status Never Smoker Gregg Wallis MD [address], [place], [address], [facility] 08/17/2024 16:45:24 Is Blood Transfusion Acceptable In An Emergency? Yes Information not available 08/17/2024 What Is The Highest Grade Or Level Of School You Have Completed Or The Highest Degree You Have Received? [id number] Information not available 08/17/2024 What Is Your Relationship Status? Single Information not available 08/17/2024 Sex: Female Functional Status Question Answer Note LastModified by Organization D etails LastModified Time Are you currently employed? Yes Information not available 08/17/2024 Mental Status None recorded. Family History Relationship Description Onset Age of this Age Resolved Age Notes LastModified by Organization Details LastModified Time Paternal Grandfather Coronary arterioscler osis [email or web address] Not available 03/2025 11:55:05 Paternal Grandmother Coronary arterioscler osis [email or web address] Not available 03/2025 11:55:05 Father Diabetes mellitus [email or web address] Not available 2023 16:44:35 Medical History No medical history recorded. Gynecological HistoryNo gynecological history recorded. Obstetrics History GPAL:G 0 P 0 0 0 0 Immunizations Vaccine Type Date Status Note Provider Nam e and Address Organization Details Recorded Time Hep B, unspecified formulation 07/06/2024 completed Daylin elizabeth [facility] 08/18/2024 21:39:17 Hep B, adolescent or pediatric 08/10/2024 completed Daylin elizabeth [facility] 08/18/2024 21:40:16 Past Encounters Encounter ID Performer Location Encounter Start Date Encounter Closed Date Diagnosis/Indication Diagnosis SNOMED-CT Code Diagnosis ICD10 Code Diagnosis Note [id number] Gregg Wallis MD [facility], [facility] [address] [place] [address] 06/03/2024 17:13:32 06/03/2024 18:44:11 Migraine 44211773 G43.909 Body mass index 30+ - obesity 881381592 Z68.38 Anemia 130758080 D64.9 last CBC 03/2024 Family his tory of diabetes mellitus 313920595 Z83.3 father Screening for malignant neoplasm of cervix 978582872 Z12.4 Active or passive immunization 699193895 Z23 Tattoo of skin 194655212 1 02 L81.8 [id number] Gregg Wallis MD [place] [facility], [facility] [address] [place] [address] 08/17/2024 14:43:08 08/17/2024 16:54:30 Adult health examination 175335502 Z00.00 Headache 04519318 R51.9 better with amitriptyl ine Dizziness 511439499 R42 resolved Tattoo of skin 304382707 1 02 L81.8 Acne 60744015 L70.9 seen Iron defic iency anemia 14793059 D50.9 Body mass index 30+ - obesity 293507026 Z68.38 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 Screening for malignant neoplasm of cervix 205956736 Z12.4 Active or passive immunization 744608648 Z23 Family his tory of diabetes mellitus 787480031 Z83.3 father [id number] Gregg Wallis MD [place] [employer] [facility], [facility] [address] [place] [address] 03/22/2025 11:53:38 03/22/2025 12:40:15 Body mass index 30+ - obesity 400489933 Z68.38 Iron defic iency anemia 40235953 D50.9 resolved 01/20/25 Headache 81738620 R51.9 better with amitriptyl ine Tattoo of skin 075679288 1 02 L81.8 -ve hep C 08/18/24 Cancer cer vix screening status 502682798 Z12.4 03/17/25 Immunization due 8678922 08 Z23 up to date Health Concerns Section Related Observation LastModified by Organization Detai ls LastModified Time None Recorded Concern Status LastModified by Organization Details LastModified Time None Recorded Advance Directives Directive None Recorded Payers Insurance Date Sequence Insurance Name Policy Number Policy Wilder Covered Member ID Wilder Member ID Guarantor Name 03/19/2025 1 [employer] [id number] Sherri Sara [id number] Sherri Basileford 08/17/2024 1 *SELF PAY* Ci erra Basileford 05/20/2024 1 [facility] (POS II) [id number] Clement Ruiz [id number] Sherri Ruiz Notes Date Note Type Note [...] hearing loss while driving Gregg Wallis MD [address] [place] [address], [place], [address], [facility] 06/03/2024 18:39:41 08/17/2024 text/html Hypertension F/UReported bypatient.Medications: [...] hearing loss while driving Gregg Wallis MD [address] [employer] [address], [place], [address], [facility] 08/17/2024 16:48:32 03/22/2025 text/html Hypertension F/UReported bypatient.Medications: taking medications as directed; no side effects from medication Lifestyle:regular exercise; limiting/avoiding salt; compliant with low salt diet Associated Symptoms:no dizziness; no lightheadedness; no chest pain; no shortness of breath; no palpitations; no edema; no calf pain with exertion; no headache Gregg Wallis MD [address] [employer] [address], [place], [address], [facility] 03/22/2025 12:31:16 OBGyn Episode No OBEpisode recorded.
--- OUTSIDE RECORDS SUMMARY | 2025-03-24 10:29 | XMS_ITS | Data Portability ---
Author Organization [facility] Address [address] [place] [address] [place] [address] Care Team Providers Care Director Of Securities And Real Estate Name Role Phone ARELY MALLORYCRUZMARY Primary Care Provider [phone] Assessment Encounter Date Assessment Date Assessment LastModified by Organization Details LastModified Time 08/20/2024 08/20/2024 Annual gynecological exam performed. Patient will come back in a year unless there are new symptoms. [email or web address] Not available 08/20/2024 17:01:25 Plan of Treatment Reminders Order Date Submit Date Provider Last Modified By Organization Details Last Modified Time Details Appointments None recorded. Lab test, urine 2022 023 [facility], [address], [address], [place], [address], 3 17:20:28 Referral None recorded. Procedures None recorded. Surgeries None recorded. Imaging US, transvagina l 2021 022 [email or web address] [facility], [address], [place], [address], 2 22:21:34 Medication Orders estradiol 2 mg tablet 2023 024 [facility] [place], [address], 4 14:38:34 Nexplanon 68 mg subdermal implant 2022 023 Not available 3 17:20:10 Patient TargetsNo targets recorded. Patient InstructionsNo instructions [...] t Case: [id number] Autho lloyd beltran Provi kenrick: Bryce Minor MD Colle cted: 08/20 1642 Order ing Locat ion: [place] Patho logy Recei tamie: 08/21 1159 First Buzz n: Cindy Anguiano, DORCAS Speci men: Buzz lagunas Pap - Image d, Cervi x STATE MENT OF ADEQU ACY: Satis facto ry for evalu ation Trans forma tion zone compo china gaston nt ----- ----- ----- ----- ----- ----- ----- ----- ----- ----- ----- ----- ----- ----- ----- ----- ----- ---- FINAL DIAGN OSIS: Negat jacek for Intra epith elial Lesefren n or Janie moore ([facility]) . Elect anya david d by DORCAS Navarrete on 08/30 at [address] ----- ----- ----- ----- ----- ----- ----- [...] as clini almita jacobs nted. Not Available [facility] (Lab) [address], [place], [address], 08/30/2024 14:55:59 08/20/20 24 08/20/2024 TRICH OMONA S VAGIN DIANA (RRNA ) trichomonas vaginalis ribosomal RNA (rrna) Negati ve negati ve Not Available [facility] (Lab) [address] [place], [address], 08/30/2024 14:55:59 08/20/20 24 08/20/2024 CT/GC ([facility]) , THINP REP VIAL chlamydia trachomatis, PCR Negati ve negati ve Not Available [facility] (Lab) [address] [place], [address], 08/30/2024 14:56:00 08/20/20 24 08/20/2024 CT/GC ([facility]) , THINP REP VIAL neisseria gonorrhoeae, PCR Negati ve negati ve Not Available [facility] (Lab) [address], [place], [address], 08/30/2024 14:56:00 07/31/20 22 07/31/2022 US, trans vagin al No observ ation record ed. [email or web address] [facility] [address], [place], [address], 07/31/2022 17:20:15 07/31/20 22 07/31/2022 US, trans vagin al No observ ation record ed. [email or web address] [address], [place], [address], 07/31/2022 23:08:30 Result Notes None recorded. Procedures Surgical History Date Name Laterality Status Provider Name and Address Organization Details Recorded Time 08/20/20 24 Date of Last Pap Smear completed Sera Wilson [facility] 08/20/2024 17:04:18 10/26/19 23 Control Implant Insertion completed Junaid Minor MD [address], [place], [address], [facility] 10/26/2022 23:28:32 03/21/20 22 LAPAROSCOPIC OVARIAN CYSTECTOMY (SURG) completed Alison Diaz [facility] 03/26/2022 12:02:00 Imaging Results None recorded. Procedure Notes None recorded. Medical Equipment None [...] Not Available Not Avai lable Estarylla 0.25 mg-0.035 mg tablet TAKE 1 [...] mass index (BMI) Body mass index (BMI) [Percentile] Per age and sex Body weight Systolic And Diastolic Provider Name and Address Organization Details Last Updated DateTime 10/26/2022 172.72 cm 33.1 kg/m2 96 % 43048.1 4 g 115/79 mm[Hg] Koki Rosales [facility] 16:26:41 Date Recorded Body height Body mass index (BMI) Body weight Systolic And Diastolic Provider Name and Address Organization Details Last Updated DateTime 06/12/2024 172.72 cm 39.7 kg/m2 289295.61 g 125/80 mm[Hg] Sera Wilson [facility] 06/12/2024 14:11:13 Date Recorded Body height Body mass index (BMI) [Percentile] Per age and sex Body mass index (BMI) Body weight Systolic And Diastolic Provider Name and Address Organization Details Last Updated DateTime 08/03/2022 172.72 cm 96 % 32.7 kg/m2 18687.3 6 g 130/84 mm[Hg] Koki Rosales [facility] 12:08:18 Date Recorded Body height Body mass index (BMI) Body weight Systolic And Diastolic Provider Name and Address Organization Details Last Updated DateTime 08/20/2024 172.72 cm 40 kg/m2 486022.79 g 115/77 mm[Hg] Sera Steve [facility] 08/20/2024 17:03:18 Social History Question Answer Notes LastModified by Organizat ion Details LastModified Time Tobacco Smoking Status Never Smoker Koki Rosales glenn, [facility] 05/16/2022 17:27:19 Are You Blind Or Do You Have Difficulty Seeing? No Information n ot available 05/16/2022 What Is Your Level Of Caffeine Consumption? Occasional Information not available 05/16/2022 How Much Tobacco Do You Chew? None Information not available 05/16/2022 In The 14 Days Before Symptom Onset, Have You Had Close Contact With A Laboratory-confirm ed COVID-19 While That Case Was Ill? No Information n ot available 05/16/2022 In The 14 Days Before [...] Of Diet Are You Following? REGULAR Information n ot available 05/16/2022 What Is The Highest Grade Or Level Of School You Have Completed Or The Highest Degree You Have Received? [id number] Information not available 05/16/2022 Are There Any [...] LastModified by Organizat ion Details LastModified Time Do you use any illicit or recreational drugs? No Information not available 05/16/2022 What is your level of alcohol consumption? None Information not available 05/16/2022 Are you able to walk? 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 Occasional Information not available 05/16/2022 Mental Status Question Answer Note LastModified by Organization D etails LastModified Time Do you feel stressed (tense, restless, nervous, or anxious, or unable to sleep at night)? [id number] Information not available 05/16/2022 Family History Relationship Description Onset Age of this Age Resolved Age Notes LastModified by Organization Details LastModified Time Mother Asthma Not available 05/16/2022 17:27:07 Mother Abnormal cervical Papanicolaou smear Pre-ce rvical cancer [email or web address] Not available 06/12/2024 14:02:41 Mother Cyst of ovary [email or web address] Not available 2023 14:02:41 Father Hyperlipidem ia [email or web address] Not available 2023 14:02:41 Father Hypertensive disorder [...] SNOMED-CT Code Diagnosis ICD10 Code Diagnosis Note [id number] Junaid Minor MD [facility] [address] [address] 03/05/2022 14:00:19 03/05/2022 15:16:14 Pain in pelvis 99529813 R10.2 Cyst of ovary 69192434 N 83.209 this patient is a 17-year-ol [...] agree to obtain an ultrasound have returned. [id number] Junaid Minor MD [facility] [address] [address] 03/09/2022 15:00:10 03/09/2022 16:16:40 Cyst of left ovary 8486078924 0349211 N83.292 [id number] Junaid Minor MD [facility] [address] [address] 03/12/2022 13:59:46 03/13/2022 15:02:25 Cyst of ovary 67648196 N83.209 Pain in pelvis 09053359 R10.2 this patient is a 17-year-ol d female with pelvic pain and a ovarian cyst. We have agreed to perform laparoscop ic ovarian cystectomy of the left ovary. She understand s the risk, benefits, and alternativ es. She has completed the informed consent process and is ready to proceed. We made a decision to perform surgery during this visit. [id number] MD Brandt Hammer [address],[place] [address] 03/26/2022 10:10:36 03/26/2022 10:18:55 [id number] MD Brandt Hammer [address],[place] [address] 03/26/2022 15:18:11 03/26/2022 17:47:13 Postoperative care 767950344 Z48.89 This patient is a 17-year-ol d [...] as needed. We reviewed the pathology report. [id number] MD Brandt Hammer [address] [address] 05/10/2022 13:42:27 05/10/2022 14:23:04 Pain in pelvis 49158784 R10.2 this patient is a 17-year-ol d female with pelvic pain and a ovarian cyst. We have agreed to perform laparoscop ic ovarian cystectomy of the left ovary. She understand s the risk, benefits, and alternativ es. She has completed the informed consent process and is ready to proceed. We made a decision to perform surgery during this visit. [id number] MD Brandt Hammer [address],[facility] [place] [address] 05/16/2022 16:55:43 05/16/2022 23:07:14 Pain in pelvis 73370312 R10.2 this patient is a 17-year-ol d [...] follow-up in 3 months on current cyst. [id number] Junaid Minor MD [facility] [address] [address] 07/31/2022 15:45:50 07/31/2022 17:56:30 Cyst of left ovary 6346858523 9414591 N83.292 [id number] Junaid Minor MD [facility] [address] [address] 08/03/2022 11:14:16 08/03/2022 12:48:51 Pain in pelvis 96081279 R10.2 This patient is a 17-year-ol d [...] ce. More than 50% was counseling . [id number] Junaid Minor MD [facility] [address],[place] [address] 10/26/2022 16:16:26 10/29/2022 15:11:19 Implantation of subcutaneous contraceptive 401181402 Z30.9 Contracept ion care management 527883875 Z30.9 Nexplanon inserted without complicati ons. [id number] Junaid Minor MD [facility] [address] [address] 06/12/2024 14:01:15 06/12/2024 15:05:21 Abnormal uterine bleeding 9108549363 9100 N93.9 This patient is a 19-year-ol [...] planning on starting a family next year. [id number] Junaid Minor MD [facility] [address] [address] 08/20/2024 16:45:59 08/20/2024 17:40:36 Gynecologic examination 53586952 Z01.419 Annual gynecologi kelli exam performed. Patient [...] Member ID Wilder Member ID Guarantor Name 08/20/2024 1 *SELF PAY* Ci erra Vandeford 10/01/2024 1 R [id number] Sherri M Vandeford [id number] Sherri Vandeford 10/01/2024 2 [facility] (MEDICAID HMO) Sherri Vandeford [id number] Sherri Vandeford 10/01/2024 2 [facility] - DOS ON OR AFTER 21 (MEDICAID REPLACEMENT - HMO) Sherri Vandeford [id number] Sherri Vandeford 10/01/2024 2 [facility] (MEDICAID HMO) Sherri Vandeford [id number] Sherri Vandeford 10/01/2024 1 [place] [facility] Sherri Vandeford [id number] Sherri Vandeford 10/01/2024 2 [employer] Sherri Vandeford [id number] Sherri Vandeford 10/01/2024 2 [employer] - ALLIED BENEFITS - OPEN ACCESS Sherri Vandeford [id number] Sherri Vandeford 10/01/2024 2 [facility] - DOS ON OR AFTER 21 (MEDICAID REPLACEMENT - HMO) Sherri Vandeford [id number] Sherri Vandeford 10/01/2024 2 [employer] Sherri Vandeford [id number] Sherri Vandeford 10/01/2024 1 [employer] [facility] [employer] (PPO) Sherri Vandeford [id number] Sherri Vandeford 10/01/2024 1 [employer] [facility] (PPO) Sherri Vandeford [id number] Sherri Vandeford 10/01/2024 1 [employer] Sherri Vandeford [id number] Sherri Vandeford 10/01/2024 2 [facility] (MEDICAID HMO) [id number] Sherri Vandeford [id number] Sherri Vandeford 06/12/2024 1 [facility] Vandeford [id number] Sherri Vandeford Notes Date Note Type Note [...] pelvic Pain group. We spent 20 minutes [id number]. More than 50% was counseling. Junaid Minor MD [address], [place], [address], [facility] 08/03/2022 12:44:40 10/26/2022 text/html 17-year-old femlaci toney presents for Nexplanon insertion. Junaid Minor MD [address], [place], [address], [facility] 10/26/2022 23:29:13 06/12/2024 text/html This patient [...] year. Junaid Minor MD [address], [place], [address], [facility] 06/12/2024 14:55:34 08/20/2024 text/html Annual GYNReport [...] exercise Junaid Minor MD [address], [place], [address], [facility] 08/20/2024 17:37:31 OBGyn Episode No OBEpisode recorded.
--- OUTSIDE RECORDS SUMMARY | 2025-03-24 10:29 | XMS_ITS | Clinical Summary ---
Author Organization [facility] Address [address] [place] [address] Care Team Providers Care Rn Clinical Documentation Specialist Name Role Phone Roel Aragon MD Primary Care Provider Unavail able Source Comments [facility],non-owned Affiliates and Associated Physician Practices is amultiple site organization consisting of ambulatory clinics and hospital sitesin [place], [place], [place] and [place]. This disclosure is being madepursuant to the Care Everywhere program and may not contain all information available regarding this patient. 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 Gender Identity Not on file Sexual Orientation [...] 1:56 PM CDT Height 172.7 cm (5' 8) 11/28/2022 1:56 PM CDT Body Mass Index 33.3 11/28/2022 1:56 PM CDT Plan of Treatment Health Maintenance Due Date Last Done Comments HIV SCREENING 2018 HPV VACCINE (1 - 3-dose series) 2018 CHLAMYDIA/GONORRHEA SCREENING 2019 MENINGOCOCCAL (Group B) VACCINE SHARED DECISION-MAKING (1 of 2 - Standard) 2019 HEPATITIS C SCREENING 02/25/2021 DTAP/TDAP/TD VACCINES (1 - Tdap) 2022 HEPATITIS B VACCINE (1 of 3 - 19+ 3-dose series) 2022 PAP SMEAR 2024 COVID-19 VACCINE ( - 2023- season) 2024 11/12/2022, 10/18/2022 DEPRESSION SCREENING 09/16/2024 INFLUENZA VACCINE (#1) 2025 2, 06/22/2011, 07/01/2009, Additional history exists ZOSTER VACCINE [...] this topic Insurance [employer] Care Teams Rn Clinical Documentation Specialist Relationship Specialty Start Date End Date Roel Aragon MD PCP - General 03/22/22
[2025-03-24 11:03] LABS: Hemoglobin A1C 5.3 % (<5.7)
[2025-03-24 11:37] LABS: Thyroid Stimulating Hormone 4.040 uIU/mL (0.465-4.680)
== END 2025-03-24 10:17 | disposition home or self-care (01) ==
LOC: CHSLAB 10:18
PROVIDERS: PCP Internal Medicine; Visit Provider Internal Medicine
DX: R51.9 Headache, unspecified (principal); Z68.38 Body mass index [BMI] 38.0-38.9, adult
CPT/HCPCS: 36415; 83036; 84443; 85652